=== PATIENT | female | born 1995 | race Caucasian/White ===

== ENCOUNTER → 2016-12-08 | Outpatient (REF) | payer MEDICARE, MEDICAID ==
[~2016-12-08] MED LIST: /VITACHEW PO; BACTDSTA PO; PROT1TAB2 PO
== END ==
LOC: M SFHCADAM 13:45
PROVIDERS: ATTEND Physician Assistant
DX: R94.6 Abnormal results of thyroid function studies (principal)

== ENCOUNTER → 2016-12-25 | Outpatient (REF) | payer MEDICARE, MEDICAID ==
[2016-12-25 19:48] LABS: FREE T4 1.24 NG/DL (0.78-1.33)
== END ==
LOC: M SFHCADAM 13:30
PROVIDERS: ATTEND Physician Assistant
DX: R94.6 Abnormal results of thyroid function studies (principal)

== ENCOUNTER 2017-01-08 21:01 | Emergency (ER) | payer MEDICARE, MEDICAID ==
[2017-01-08] MEDS ORDERED: KETOROLAC 30 MG/ML VIAL (J1885) As Ordered ONE (21:52)
[2017-01-08 22:13] LABS: BASO # 0.1 K/mm3 (0.0-0.2); BASO % 0.4 % (0.0-1.0); EOS # 0.2 K/mm3 (0.0-0.50); EOS % 1.8 % (0.0-3.0); LARGE UNSTAINED CELL # 0.2 K/mm3 (0.0-0.4); LARGE UNSTAINED CELL % 1.5 % (0.0-4.0); LYMPH # 2.4 K/mm3 (1.5-6.5); LYMPH % 19.2 % (24.0-44.0); MEAN CORPUSCULAR HEMOGLOBIN 27.2 pg (27.0-33.0); MEAN CORPUSCULAR HGB CONC 31.8 g/dl (32.0-36.5); MEAN CORPUSCULAR VOLUME 85.6 fl (80.0-96.0); MONO # 0.5 K/mm3 (0.0-0.8); MONO % 4.2 % (0.0-5.0); NEUTROPHILS % 72.9 % (36.0-66.0); PLATELET COUNT, AUTOMATED 326 k/mm3 (150-450); WHITE BLOOD COUNT 12.3 K/mm3 (4.0-10.0)
[2017-01-08 22:34] LABS: ALBUMIN 3.7 GM/DL (3.2-5.2); ALBUMIN/GLOBULIN RATIO 0.93 (1.00-1.93); ALKALINE PHOSPHATASE 105 U/L (45-117); ALT/SGPT 33 U/L (12-78); AMYLASE 56 U/L (25-115); ANION GAP 6 MEQ/L (8-16); AST/SGOT 21 U/L (15-37); BILIRUBIN,DIRECT 0.1 MG/DL (0.0-0.2); BILIRUBIN,TOTAL 0.5 MG/DL (0.2-1.0); BLOOD UREA NITROGEN 10 MG/DL (7-18); CARBON DIOXIDE LEVEL 30 MEQ/L (21-32); CHLORIDE LEVEL 105 MEQ/L (98-107); CREATININE FOR GFR 0.87 MG/DL (0.55-1.02); GLUCOSE, FASTING 89 MG/DL (70-105); POTASSIUM SERUM 3.8 MEQ/L (3.5-5.1); SODIUM LEVEL 141 MEQ/L (136-145); TOTAL PROTEIN 7.7 GM/DL (6.4-8.2)
[2017-01-08] MEDS ORDERED: ISOVUE-370 76% 100ML VIAL (Q9967) As Ordered ONE (22:46)
[2017-01-08] MEDS ORDERED: MORPHINE 2 MG/ML 1ML SYRINGE As Ordered ONE (23:11)
--- NOTE | 2017-01-08 23:20 | REPUSA ---
CT of the abdomen and pelvis with contrast Clinical statement: Pain. Technique: Multiple axial CT images were obtained from the base of the lungs through the floor of the pelvis utilizing 5 mm axial slices after administration of nonionic intravenous contrast. Coronal an d sagittal reconstructions were also obtained. Comparison: 10/17/2015. Findings: Chest: The visualized lung bases are clear. Abdomen: The liver, spleen, pancreas, kidneys, gallbladder, and adrenal glands are unremarkable. The aorta is within normal limits. There is no evidence of abdominal lymphadenopathy or ascites. Pelvis: Moderate amount of stool fills the colon.The bowel is otherwise unremarkable, with no obstruc tive or inflammatory changes. The appendix is normal. The urinary bladder is within normal limits. Th ere is a small simple right ovarian cyst measuring 1.7 x 2.1 cm. The other pelvic structures appear g rossly intact. There is no evidence of pelvic lymphadenopathy or ascites. Bones: There are no suspicious osseous abnormalities seen. Impression: 1. No obstructive or inflammatory bowel changes. Mild constipation. 2. Small simple right ovarian cyst.
--- NOTE | 2017-01-09 00:04 | EDDOCDS ---
Nurse's Notes [facility] Name: Gema Aviles Age: 21 yrs Sex: Female : 1995 Arrival Date: 01/08/2017 Time: 21:01 Bed I4 / M4 Private MD: Justa Dill M Diagnosis: Constipation;Other ovarian cysts-RIGHT Presentation: 01/08 21:14 Presenting complaint: Patient states: right lower abd pain x3 days. Nauseated. Denies ttb symptoms. Adult Sepsis Screening: The patient does not have new or worsening altered mentation. Patient's respiratory rate is less than 22. Systolic blood pressure is greater than 100. Patient has a qSOFA score of 0- Negative Sepsis Screen. Suicide/Homicide risk assessment- the patient denies having any suicidal and/or homicidal ideations and does not present with any other emotional, behavioral or mental health complaints. Status: Patient is not a coordinator of rehabilitation services or dependent. Transition of care: patient was not received from another setting of care. 21:14 Acuity: ROD Level 3 ttb 21:14 Method Of Arrival: Walkin/Carried/Asstd ttb Triage Assessment: 21:15 General: Appears in no apparent distress, well nourished, Behavior is cooperative, ttb pleasant. Pain: Location: right lower quadrant pain Pain currently is 10 out of 10 on a pain scale. HIV screening NA for this visit Offered previously. Neurological: Level of Consciousness is awake, alert. Cardiovascular: Chest pain is denied. Respiratory: No deficits noted. Airway is patent Denies cough, shortness of breath. GI: Reports lower abdominal pain, Denies constipation, diarrhea, vomiting. : Denies burning with urination, urinary frequency, urgency, vaginal bleeding. Derm: Skin is normal. 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 none - PMHx: Pancreatitis; Hypothyroidism; Ovarian cyst; - PSHx: Tonsillectomy; - Social history: Smoking status: Patient states was never smoker of tobacco. Patient/guardian denies using alcohol, street drugs, No barriers to communication noted, The patient speaks fluent Indonesian. - Family history: Not pertinent. - : The pt / caregiver states he / she is not on anticoagulants. Home medication list is obtained from the patient, the caregiver. - Exposure Risk Screening:: None identified. Screenin:08 Screening information is obtained from family members. Fall risk: No risks identified. kas2 Assistance ADL's: requires no assistance with activities of daily living. Abuse/DV Screen: The patient / caregiver reports he/she is: not in a situation that causes fear, pain or injury. Nutritional screening: No deficits noted. Advance Directives: Currently, there is no health care proxy. There is no active DNR order. There is no living will. There is no Power of Administration Specialist. home support is adequate. Assessment: 22:06 General: Appears in no apparent distress, uncomfortable, well nourished, well groomed, kas2 Behavior is appropriate for age, cooperative. Pain: Location: back and groin Pain currently is 5 out of 10 on a pain scale. Neurological: Level of Consciousness is awake, alert, Oriented to person, place, time. Cardiovascular: Rhythm is regular. Respiratory: Airway is patent Respiratory effort is even, unlabored, Respiratory pattern is regular, symmetrical. GI: Abdomen is obese, Bowel sounds present X 4 quads. Abd is tender to palpation X 4 quads. : Reports burning with urination. Derm: Skin is intact, Skin is moist, Skin is pink, warm & dry. Skin temperature is warm. 22:32 General: Pt reports itching from tape holding IV tubing to arm. Replaced with paper ld5 tape. 23:03 General: Pt returned from CT. Tolerated well. Reports no change in pain. Provider ld5 aware. Will continue to monitor. 23:21 General: Pt medicated for reports 10/10 pain. Call sterling within reach. Will continue to ld5 monitor. Vital Signs: 21:03 BP 144 / 90; Pulse 109; Resp 16; Temp 99.2(O); Pulse Ox 100% on R/A; Weight 111.67 kg sew (M); Height 5 ft. 4 in. (162.56 cm); Pain 10/10; 23:59 BP 127 / 63; Pulse 72; Resp 18; Temp 98.3; Pulse Ox 96% ; ajs 21:03 Body Mass Index 42.26 (111.67 kg, 162.56 cm) sew Vitals: 21:03 Log In Time: January 08, 2017 at 21:01. [facility] ED Course: 21:03 Patient visited by Tita Pierre. sew 21:03 Justa Dill is Private Physician. sew 21:03 Patient moved to Waiting sew 21:04 Patient visited by Tita Pierre. sew 21:04 Patient moved to Pre RCE sew 21:15 Triage Initiated ttb 21:33 Patient moved to Triage 3 rs6 21:36 [facility] ck7 21:36 Jaden Travis DO is Attending Physician. ck7 21:36 Patient visited by Jose Obrien RPA-C. ck7 21:51 Patient moved to I4 / M4 nn1 22:01 Urinalysis Sent. ld5 22:01 Urine Culture Sent. ld5 22:05 Amylase Sent. kas2 22:05 Basic Metabolic Profile Sent. kas2 22:05 CBC with Diff Sent. kas2 22:05 Lipase Sent. kas2 22:05 Liver Profile Sent. kas2 22:06 Inserted saline lock: 20 gauge in right antecubital area and blood collected. [facility] patient tolerated the procedure well. No procedures done that require assistance. 22:08 Patient visited by Lacey Bass RN. kas2 22:28 [facility] Payment Agreement was scanned into [employer] and attached to record. gjb 22:33 Patient visited by Maine Kirby RN. ld5 23:04 Patient visited by Maine Kirby,GISEL. ld5 23:22 Patient visited by Maine Kirby,GISEL. ld5 23:22 CT ABD & PELVIS: IV Contrast Only Returned. EDMS 23:52 Patient visited by Jose Obrien RPA-C. ck7 23:55 Justa Dill is Referral Physician. ck7 02 00:00 Patient visited by Deb Edwards. ajs 00:01 Discontinued IV bleeding controlled, pressure dressing applied, No redness/swelling at [facility] site. 00:02 Patient visited by Lacey Bass RN. [facility] 00:02 The patient / caregiver is instructed regarding the plan of care and ED course. [facility] Administered Medications: 01/08 22:05 Drug: Ondansetron 4 mg [ondansetron HCl 2 mg/mL intravenous solution (2 mL)] Route: [facility] IVP; Site: right antecubital; 23:02 Follow up: Response: No significant change. ld5 22:05 Drug: NS 0.9% 1000 ml [sodium chloride 0.9 % intravenous solution] Route: IV; Rate: kas2 bolus; Site: right antecubital; 01/09 00:02 Follow up: IV Status: Completed infusion; IV Intake: 1000ml kas2 01/08 22:06 Drug: ketorolac 30 mg [ketorolac 30 mg/mL (1 mL) injection solution (1 mL)] Route: IVP; kas2 Site: right antecubital; 23:03 Follow up: Response: No significant change. ld5 23:21 Not Given (other dosage ordered): morphine 4 mg IVP once ld5 23:21 Drug: morphine 2 mg [morphine 2 mg/mL intravenous cartridge (1 mL)] Route: IVP; Site: ld5 right antecubital; Point of Care Testing: Urine : 22:01 hCG Reading: Negative; Control Reading: Positive; ld5 Ranges: Intake: 01/09 00:02 IV: 1000.00ml; Total: 1000.00ml. kas2 Order Results: Lab Order: Amylase; SPEC'M 01/08/17 22:03 Test: AMYLASE; Value: 56; Range: 25-115; Units: U/L; Status: F Lab Order: Basic Metabolic Profile; SPEC'M 01/08/17 22:03 Test: GLUCOSE, FASTING; Value: 89; Range: 70-105; Units: MG/DL; Status: F Test: BLOOD UREA NITROGEN; Value: 10; Range: 7-18; Units: MG/DL; Status: F Test: CREATININE FOR GFR; Value: 0.87; Range: 0.55-1.02; Units: MG/DL; Status: F Test: SODIUM LEVEL; Value: 141; Range: 136-145; Units: MEQ/L; Status: F Test: POTASSIUM SERUM; Value: 3.8; Range: 3.5-5.1; Units: MEQ/L; Status: F Test: CHLORIDE LEVEL; Value: 105; Range: 98-107; Units: MEQ/L; Status: F Test: CARBON DIOXIDE LEVEL; Value: 30; Range: 21-32; Units: MEQ/L; Status: F Test: ANION GAP; Value: 6; Range: 8-16; Abnormal: Below low normal; Units: MEQ/L; Status: F Test: CALCIUM LEVEL; Value: 9.0; Range: 8.5-10.1; Units: MG/DL; Status: F Lab Order: CBC with Diff; SPEC'M 01/08/17 22:03 Test: WHITE BLOOD COUNT; Value: 12.3; Range: 4.0-10.0; Abnormal: Above high normal; Units: K/mm3; Status: F Test: RED BLOOD COUNT; Value: 4.34; Range: 4.00-5.40; Units: M/mm3; Status: F Test: HEMOGLOBIN; Value: 11.8; Range: 12.0-16.0; Abnormal: Below low normal; Units: g/dl; Status: F Test: HEMATOCRIT; Value: 37.1; Range: 36.0-47.0; Units: %; Status: F Test: MEAN CORPUSCULAR VOLUME; Value: 85.6; Range: 80.0-96.0; Units: fl; Status: F Test: MEAN CORPUSCULAR HEMOGLOBIN; Value: 27.2; Range: 27.0-33.0; Units: pg; Status: F Test: MEAN CORPUSCULAR HGB CONC; Value: 31.8; Range: 32.0-36.5; Abnormal: Below low normal; Units: g/dl; Status: F Test: RED CELL DISTRIBUTION WIDTH; Value: 13.0; Range: 11.5-14.5; Units: %; Status: F Test: PLATELET COUNT, AUTOMATED; Value: 326; Range: 150-450; Units: k/mm3; Status: F Test: NEUTROPHILS %; Value: 72.9; Range: 36.0-66.0; Abnormal: Above high normal; Units: %; Status: F Test: LYMPH %; Value: 19.2; Range: 24.0-44.0; Abnormal: Below low normal; Units: %; Status: F Test: MONO %; Value: 4.2; Range: 0.0-5.0; Units: %; Status: F Test: EOS %; Value: 1.8; Range: 0.0-3.0; Units: %; Status: F Test: BASO %; Value: 0.4; Range: 0.0-1.0; Units: %; Status: F Test: LARGE UNSTAINED CELL %; Value: 1.5; Range: 0.0-4.0; Units: %; Status: F Test: NEUTROPHILS #; Value: 9.0; Range: 1.8-7.7; Abnormal: Above high normal; Units: K/mm3; Status: F Test: LYMPH #; Value: 2.4; Range: 1.5-6.5; Units: K/mm3; Status: F Test: MONO #; Value: 0.5; Range: 0.0-0.8; Units: K/mm3; Status: F Test: EOS #; Value: 0.2; Range: 0.0-0.50; Units: K/mm3; Status: F Test: BASO #; Value: 0.1; Range: 0.0-0.2; Units: K/mm3; Status: F Test: LARGE UNSTAINED CELL #; Value: 0.2; Range: 0.0-0.4; Units: K/mm3; Status: F Lab Order: Lipase; SPEC'M 01/08/17 22:03 Test: LIPASE; Value: 261; Range: 73-393; Units: U/L; Status: F Lab Order: Liver Profile; SPEC'M 01/08/17 22:03 Test: AST/SGOT; Value: 21; Range: 15-37; Units: U/L; Status: F Test: ALT/SGPT; Value: 33; Range: 12-78; Units: U/L; Status: F Test: ALKALINE PHOSPHATASE; Value: 105; Range: 45-117; Units: U/L; Status: F Test: BILIRUBIN,TOTAL; Value: 0.5; Range: 0.2-1.0; Units: MG/DL; Status: F Test: BILIRUBIN,DIRECT; Value: 0.1; Range: 0.0-0.2; Units: MG/DL; Status: F Test: TOTAL PROTEIN; Value: 7.7; Range: 6.4-8.2; Units: GM/DL; Status: F Test: ALBUMIN; Value: 3.7; Range: 3.2-5.2; Units: GM/DL; Status: F Test: ALBUMIN/GLOBULIN RATIO; Value: 0.93; Range: 1.00-1.93; Abnormal: Below low normal; Status: F Lab Order: Urinalysis; SPEC'M 01/08/17 21:56 Test: APPEARANCE, URINE; Value: HAZY; Range: CLEAR; Status: F Test: COLOR, URINE; Value: YELLOW; Range: YELLOW; Status: F Test: PH,URINE; Value: 6.0; Range: 5.0-9.0; Units: UNITS; Status: F Test: SPECIFIC GRAVITY URINE AUTO; Value: 1.020; Range: 1.002-1.035; Status: F Test: PROTEIN, URINE AUTO; Value: 1+; Range: NEGATIVE; Abnormal: Above high normal; Units: mg/dL; Status: F Test: GLUCOSE, URINE (UA) AUTO; Value: NEGATIVE; Range: NEGATIVE; Units: mg/dL; Status: F Test: KETONE, URINE AUTO; Value: NEGATIVE; Range: NEGATIVE; Units: mg/dL; Status: F Test: UROBILINOGEN, URINE AUTO; Value: 0.2; Range: 0.0-2.0; Units: mg/dL; Status: F Test: BILIRUBIN, URINE AUTO; Value: NEGATIVE; Range: NEGATIVE; Status: F Test: NITRITE, URINE AUTO; Value: NEGATIVE; Range: NEGATIVE; Status: F Test: LEUKOCYTE ESTERASE, URINE AUTO; Value: TRACE; Range: NEGATIVE; Abnormal: Above high normal; Status: F Test: BLOOD, URINE BLOOD; Value: NEGATIVE; Range: NEGATIVE; Status: F Test: WBC, URINE AUTO; Value: 2; Range: 0-3; Units: /HPF; Status: F Test: RBC, URINE AUTO; Value: 1; Range: 0-3; Units: /HPF; Status: F Test: BACTERIA, URINE AUTO; Value: 1+; Range: NEGATIVE; Abnormal: Above high normal; Status: F Test: SQUAMOUS EPITHELIAL CELL UR AU; Value: 8; Range: 0-6; Units: /HPF; Status: F Test: MUCUS, URINE; Value: SMALL; Range: NEGATIVE; Status: F Test: HYALINE CAST, URINE AUTO; Value: 0; Range: 0-1; Units: /LPF; Status: F Radiology Order: CT ABD & PELVIS: IV Contrast Only Test: CT ABD & PELVIS: IV Contrast Only REASON FOR EXAMINATION: Appendicitis; ; CT of the abdomen and pelvis with contrast; Clinical statement: Pain.; Technique: Multiple axial CT images were obtained from the base of the lungs through the floor of the; pelvis utilizing 5 mm axial slices after administration of nonionic intravenous contrast. Coronal an; d sagittal reconstructions were also obtained.; Comparison: 10/17/2015.; Findings:; Chest: The visualized lung bases are clear.; Abdomen: The liver, spleen, pancreas, kidneys, gallbladder, and adrenal glands are unremarkable. The; aorta is within normal limits. There is no evidence of abdominal lymphadenopathy or ascites.; Pelvis: Moderate amount of stool fills the colon.The bowel is otherwise unremarkable, with no obstruc; tive or inflammatory changes. The appendix is normal. The urinary bladder is within normal limits. Th; ere is a small simple right ovarian cyst measuring 1.7 x 2.1 cm. The other pelvic structures appear g; rossly intact. There is no evidence of pelvic lymphadenopathy or ascites.; Bones: There are no suspicious osseous abnormalities seen.; Impression:; 1. No obstructive or inflammatory bowel changes. Mild constipation.; 2. Small simple right ovarian cyst.; ; ; Outcome: 01/08 23:55 Discharge ordered by Provider. ck7 01/09 00:01 Discharge Assessment: patient administered narcotics - yes. Pt provided with safe [facility] discharge. The following High Risk Discharge criteria are identified: None. Discharged to home ambulatory, with family. Condition: good Condition: stable Condition: improved. CT Study completed. Property :Personal belongings accompany Pt. 00:02 Patient left the ED. kas2 Signatures: Dispatcher [employer] Maine Gee,RN RN [email or web address] Deb Edwards Christopher, RPA-C RPA-Cck7 Tita Pierre Teresa RN RN Tessy Marks, SIMONA STOCK HANDLER rs6 Erum Dale,RN RN Justa Wong KimRN RN kas2 MTDD
--- NOTE | 2017-01-09 00:04 | EDDOCDS ---
Physician Documentation [facility] Name: Gema Aviles Age: 21 yrs Sex: Female : 1995 Arrival Date: 01/08/2017 Time: 21:01 Bed I4 / M4 Private MD: Justa Dill M Disposition: 01/08/17 23:55 Discharged to Home/Self Care. Impression: Constipation, Other ovarian cysts - RIGHT. - Condition is Stable. - Discharge Instructions: Constipation, Adult, Ovarian Cyst. - Prescriptions for Ibuprofen 600 mg Oral Tablet - take 1 tablet by ORAL route every 6 hours As needed take with food; 30 tablet. Miralax 17 gram/dose - take 17 gram by ORAL route once daily As needed dilute in 8 ounces of water or juice; 1 bottle. - Medication Reconciliation, Local Pharmacy Hours form. - Follow up: Justa Dill; When: 2 - 3 days; Reason: Recheck today's complaints, Continuance of care. - Problem is new. - Symptoms have improved. Historical: - Allergies: Cipro PO; - Home Meds: 1. none - PMHx: Pancreatitis; Hypothyroidism; Ovarian cyst; - PSHx: Tonsillectomy; - Social history: Smoking status: Patient states was never smoker of tobacco. Patient/guardian denies using alcohol, street drugs, No barriers to communication noted, The patient speaks fluent Greek. - Family history: Not pertinent. - : The pt / caregiver states he / she is not on anticoagulants. Home medication list is obtained from the patient, the caregiver. - Exposure Risk Screening:: None identified. 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 4 in. (162.56 cm); Pain 10/10; 23:59 BP 127 / 63; Pulse 72; Resp 18; Temp 98.3; Pulse Ox 96% ; ajs 21:03 Body Mass Index 42.26 (111.67 kg, 162.56 cm) sew MDM: 21:48 Undress patient appropriately for examination ordered. ck7 21:48 UCG by Nursing ordered. ck7 21:48 IV Saline Lock ordered. ck7 21:48 ketorolac 30 mg IVP once ordered. ck7 21:48 Ondansetron 4 mg IVP once ordered. ck7 21:48 NS 0.9% 1000 ml IV at bolus once ordered. ck7 21:49 Amylase Ordered. EDMS 21:49 Basic Metabolic Profile Ordered. EDMS 21:49 CBC with Diff Ordered. EDMS 21:49 Lipase Ordered. EDMS 21:49 Liver Profile Ordered. EDMS 21:49 Urinalysis Ordered. EDMS 21:49 Urine Culture Ordered. EDMS 21:50 NOTHING BY MOUTH+DIET ordered. EDMS 21:50 CT ABD & PELVIS: IV Contrast Only Ordered. EDMS 22:24 Financial registration complete. [facility] 22:28 [facility] Payment Agreement was scanned into [employer] and attached to record. gjb 22:44 Basic Metabolic Profile Reviewed. ck7 22:44 CBC with Diff Reviewed. ck7 22:44 Liver Profile Reviewed. ck7 22:44 Urinalysis Reviewed. ck7 22:44 Amylase Reviewed. ck7 22:44 Lipase Reviewed. ck7 23:04 morphine 4 mg IVP once ordered. ck7 23:21 morphine 2 mg IVP once ordered. ld5 23:24 CT ABD & PELVIS: IV Contrast Only Reviewed. ck7 Point of Care Testing: Urine : 22:01 hCG Reading: Negative; Control Reading: Positive; ld5 Ranges: Administered Medications: 22:05 Drug: Ondansetron 4 mg [ondansetron HCl 2 mg/mL intravenous solution (2 mL)] Route: kas2 IVP; Site: right antecubital; 23:02 Follow up: Response: No significant change. ld5 22:05 Drug: NS 0.9% 1000 ml [sodium chloride 0.9 % intravenous solution] Route: IV; Rate: kas2 bolus; Site: right antecubital; 01/09 00:02 Follow up: IV Status: Completed infusion; IV Intake: 1000ml kas2 01/08 22:06 Drug: ketorolac 30 mg [ketorolac 30 mg/mL (1 mL) injection solution (1 mL)] Route: IVP; kas2 Site: right antecubital; 23:03 Follow up: Response: No significant change. ld5 23:21 Not Given (other dosage ordered): morphine 4 mg IVP once ld5 23:21 Drug: morphine 2 mg [morphine 2 mg/mL intravenous cartridge (1 mL)] Route: IVP; Site: ld5 right antecubital; Signatures: Dispatcher [employer] Maine GeeRN RN ld5 Jose Obrien, RPA-C RPA-Cck7 Shayy López RN RN ttb Beck, Gabriela gjb Smith, KimRN RN kas2 The chart was reviewed and I authenticate all verbal orders and agree with the evaluation and treatment provided.Attachments: 22:28 [facility] Payment Agreement gjb MTDD
--- NOTE | 2017-01-11 01:03 | EDDOCDS ---
Physician Documentation [facility] Name: Gema Aviles Age: 21 yrs Sex: Female : 1995 Arrival Date: 01/08/2017 Time: 21:01 Bed I4 / M4 Private MD: Justa Dill M Disposition: 01/08/17 23:55 Discharged to Home/Self Care. Impression: Constipation, Other ovarian cysts - RIGHT. - Condition is Stable. - Discharge Instructions: Constipation, Adult, Ovarian Cyst. - Prescriptions for Ibuprofen 600 mg Oral Tablet - take 1 tablet by ORAL route every 6 hours As needed take with food; 30 tablet. Miralax 17 gram/dose - take 17 gram by ORAL route once daily As needed dilute in 8 ounces of water or juice; 1 bottle. - Medication Reconciliation, Local Pharmacy Hours form. - Follow up: Justa Dill; When: 2 - 3 days; Reason: Recheck today's complaints, Continuance of care. - Problem is new. - Symptoms have improved. Historical: - Allergies: Cipro PO; - Home Meds: 1. none - PMHx: Pancreatitis; Hypothyroidism; Ovarian cyst; - PSHx: Tonsillectomy; - Social history: Smoking status: Patient states was never smoker of tobacco. Patient/guardian denies using alcohol, street drugs, No barriers to communication noted, The patient speaks fluent Armenian. - Family history: Not pertinent. - : The pt / caregiver states he / she is not on anticoagulants. Home medication list is obtained from the patient, the caregiver. - Exposure Risk Screening:: None identified. 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 4 in. (162.56 cm); Pain 10/10; 23:59 BP 127 / 63; Pulse 72; Resp 18; Temp 98.3; Pulse Ox 96% ; ajs 21:03 Body Mass Index 42.26 (111.67 kg, 162.56 cm) sew MDM: 21:48 Undress patient appropriately for examination ordered. ck7 21:48 UCG by Nursing ordered. ck7 21:48 IV Saline Lock ordered. ck7 21:48 ketorolac 30 mg IVP once ordered. ck7 21:48 Ondansetron 4 mg IVP once ordered. ck7 21:48 NS 0.9% 1000 ml IV at bolus once ordered. ck7 21:49 Amylase Ordered. EDMS 21:49 Basic Metabolic Profile Ordered. EDMS 21:49 CBC with Diff Ordered. EDMS 21:49 Lipase Ordered. EDMS 21:49 Liver Profile Ordered. EDMS 21:49 Urinalysis Ordered. EDMS 21:49 Urine Culture Ordered. EDMS 21:50 NOTHING BY MOUTH+DIET ordered. EDMS 21:50 CT ABD & PELVIS: IV Contrast Only Ordered. EDMS 22:24 Financial registration complete. gj 22:28 [facility] Payment Agreement was scanned into [employer] and attached to record. gjb 22:44 Basic Metabolic Profile Reviewed. ck7 22:44 CBC with Diff Reviewed. ck7 22:44 Liver Profile Reviewed. ck7 22:44 Urinalysis Reviewed. ck7 22:44 Amylase Reviewed. ck7 22:44 Lipase Reviewed. ck7 23:04 morphine 4 mg IVP once ordered. ck7 23:21 morphine 2 mg IVP once ordered. ld5 23:24 CT ABD & PELVIS: IV Contrast Only Reviewed. ck7 01/09 10:58 T-Sheet-- Draft Copy was scanned into [employer] and attached to record. Point of Care Testing: Urine : 01/08 22:01 hCG Reading: Negative; Control Reading: Positive; ld5 Ranges: Administered Medications: 22:05 Drug: Ondansetron 4 mg [ondansetron HCl 2 mg/mL intravenous solution (2 mL)] Route: kas2 IVP; Site: right antecubital; 23:02 Follow up: Response: No significant change. ld5 22:05 Drug: NS 0.9% 1000 ml [sodium chloride 0.9 % intravenous solution] Route: IV; Rate: kas2 bolus; Site: right antecubital; 01/09 00:02 Follow up: IV Status: Completed infusion; IV Intake: 1000ml kas2 01/08 22:06 Drug: ketorolac 30 mg [ketorolac 30 mg/mL (1 mL) injection solution (1 mL)] Route: IVP; kas2 Site: right antecubital; 23:03 Follow up: Response: No significant change. ld5 23:21 Not Given (other dosage ordered): morphine 4 mg IVP once ld5 23:21 Drug: morphine 2 mg [morphine 2 mg/mL intravenous cartridge (1 mL)] Route: IVP; Site: ld5 right antecubital; Signatures: Dispatcher [employer] EDMS Nyasia Loyola, Reg Reg gb Maine KirbyRN RN ld5 Jose Obrien, RPA-C RPA-Cck7 Shayy López RN RN hunterb Justa Mckoy KimRN RN kas2 The chart was reviewed and I authenticate all verbal orders and agree with the evaluation and treatment provided.Attachments: 22:28 [facility] Payment Agreement gjb 01/09 10:58 T-Sheet-- Draft Copy gb Chart Complete MTDD
--- NOTE | 2017-01-11 01:04 | EDDOCDS ---
Physician Documentation [facility] Name: Gema Aviles Age: 21 yrs Sex: Female : 1995 Arrival Date: 01/08/2017 Time: 21:01 Bed I4 / M4 Private MD: Justa Dill M Disposition: 01/08/17 23:55 Discharged to Home/Self Care. Impression: Constipation, Other ovarian cysts - RIGHT. - Condition is Stable. - Discharge Instructions: Constipation, Adult, Ovarian Cyst. - Prescriptions for Ibuprofen 600 mg Oral Tablet - take 1 tablet by ORAL route every 6 hours As needed take with food; 30 tablet. Miralax 17 gram/dose - take 17 gram by ORAL route once daily As needed dilute in 8 ounces of water or juice; 1 bottle. - Medication Reconciliation, Local Pharmacy Hours form. - Follow up: Justa Dill; When: 2 - 3 days; Reason: Recheck today's complaints, Continuance of care. - Problem is new. - Symptoms have improved. Historical: - Allergies: Cipro PO; - Home Meds: 1. none - PMHx: Pancreatitis; Hypothyroidism; Ovarian cyst; - PSHx: Tonsillectomy; - Social history: Smoking status: Patient states was never smoker of tobacco. Patient/guardian denies using alcohol, street drugs, No barriers to communication noted, The patient speaks fluent Georgian. - Family history: Not pertinent. - : The pt / caregiver states he / she is not on anticoagulants. Home medication list is obtained from the patient, the caregiver. - Exposure Risk Screening:: None identified. 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 4 in. (162.56 cm); Pain 10/10; 23:59 BP 127 / 63; Pulse 72; Resp 18; Temp 98.3; Pulse Ox 96% ; ajs 21:03 Body Mass Index 42.26 (111.67 kg, 162.56 cm) sew MDM: 21:48 Undress patient appropriately for examination ordered. ck7 21:48 UCG by Nursing ordered. ck7 21:48 IV Saline Lock ordered. ck7 21:48 ketorolac 30 mg IVP once ordered. ck7 21:48 Ondansetron 4 mg IVP once ordered. ck7 21:48 NS 0.9% 1000 ml IV at bolus once ordered. ck7 21:49 Amylase Ordered. EDMS 21:49 Basic Metabolic Profile Ordered. EDMS 21:49 CBC with Diff Ordered. EDMS 21:49 Lipase Ordered. EDMS 21:49 Liver Profile Ordered. EDMS 21:49 Urinalysis Ordered. EDMS 21:49 Urine Culture Ordered. EDMS 21:50 NOTHING BY MOUTH+DIET ordered. EDMS 21:50 CT ABD & PELVIS: IV Contrast Only Ordered. EDMS 22:24 Financial registration complete. gj 22:28 [facility] Payment Agreement was scanned into redIT and attached to record. gjb 22:44 Basic Metabolic Profile Reviewed. ck7 22:44 CBC with Diff Reviewed. ck7 22:44 Liver Profile Reviewed. ck7 22:44 Urinalysis Reviewed. ck7 22:44 Amylase Reviewed. ck7 22:44 Lipase Reviewed. ck7 23:04 morphine 4 mg IVP once ordered. ck7 23:21 morphine 2 mg IVP once ordered. ld5 23:24 CT ABD & PELVIS: IV Contrast Only Reviewed. ck7 01/09 10:58 T-Sheet-- Draft Copy was scanned into redIT and attached to record. Point of Care Testing: Urine : 01/08 22:01 hCG Reading: Negative; Control Reading: Positive; ld5 Ranges: Administered Medications: 22:05 Drug: Ondansetron 4 mg [ondansetron HCl 2 mg/mL intravenous solution (2 mL)] Route: kas2 IVP; Site: right antecubital; 23:02 Follow up: Response: No significant change. ld5 22:05 Drug: NS 0.9% 1000 ml [sodium chloride 0.9 % intravenous solution] Route: IV; Rate: kas2 bolus; Site: right antecubital; 01/09 00:02 Follow up: IV Status: Completed infusion; IV Intake: 1000ml kas2 01/08 22:06 Drug: ketorolac 30 mg [ketorolac 30 mg/mL (1 mL) injection solution (1 mL)] Route: IVP; kas2 Site: right antecubital; 23:03 Follow up: Response: No significant change. ld5 23:21 Not Given (other dosage ordered): morphine 4 mg IVP once ld5 23:21 Drug: morphine 2 mg [morphine 2 mg/mL intravenous cartridge (1 mL)] Route: IVP; Site: ld5 right antecubital; Signatures: Dispatcher [employer] EDMS Nyasia Loyola, Reg Reg gb Maine KirbyRN RN ld5 Jose Obrien, RPA-C RPA-Cck7 Shayy López RN RN hunterb Justa Mckoy KimRN RN kas2 The chart was reviewed and I authenticate all verbal orders and agree with the evaluation and treatment provided.Attachments: 22:28 [facility] Payment Agreement gjb 01/09 10:58 T-Sheet-- Draft Copy gb Chart Complete MTDD
--- NOTE | 2017-01-11 01:05 | EDDOCDS ---
Nurse's Notes [facility] Name: Gema Aviles Age: 21 yrs Sex: Female : 1995 Arrival Date: 01/08/2017 Time: 21:01 Bed I4 / M4 Private MD: Justa Dill M Diagnosis: Constipation;Other ovarian cysts-RIGHT Presentation: 01/08 21:14 Presenting complaint: Patient states: right lower abd pain x3 days. Nauseated. Denies ttb symptoms. Adult Sepsis Screening: The patient does not have new or worsening altered mentation. Patient's respiratory rate is less than 22. Systolic blood pressure is greater than 100. Patient has a qSOFA score of 0- Negative Sepsis Screen. Suicide/Homicide risk assessment- the patient denies having any suicidal and/or homicidal ideations and does not present with any other emotional, behavioral or mental health complaints. Status: Patient is not a kosher dietary service manager or dependent. Transition of care: patient was not received from another setting of care. 21:14 Acuity: ROD Level 3 ttb 21:14 Method Of Arrival: Walkin/Carried/Asstd ttb Triage Assessment: 21:15 General: Appears in no apparent distress, well nourished, Behavior is cooperative, ttb pleasant. Pain: Location: right lower quadrant pain Pain currently is 10 out of 10 on a pain scale. HIV screening NA for this visit Offered previously. Neurological: Level of Consciousness is awake, alert. Cardiovascular: Chest pain is denied. Respiratory: No deficits noted. Airway is patent Denies cough, shortness of breath. GI: Reports lower abdominal pain, Denies constipation, diarrhea, vomiting. : Denies burning with urination, urinary frequency, urgency, vaginal bleeding. Derm: Skin is normal. 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 none - PMHx: Pancreatitis; Hypothyroidism; Ovarian cyst; - PSHx: Tonsillectomy; - Social history: Smoking status: Patient states was never smoker of tobacco. Patient/guardian denies using alcohol, street drugs, No barriers to communication noted, The patient speaks fluent Upper Sorbian. - Family history: Not pertinent. - : The pt / caregiver states he / she is not on anticoagulants. Home medication list is obtained from the patient, the caregiver. - Exposure Risk Screening:: None identified. Screenin:08 Screening information is obtained from family members. Fall risk: No risks identified. kas2 Assistance ADL's: requires no assistance with activities of daily living. Abuse/DV Screen: The patient / caregiver reports he/she is: not in a situation that causes fear, pain or injury. Nutritional screening: No deficits noted. Advance Directives: Currently, there is no health care proxy. There is no active DNR order. There is no living will. There is no Power of Director Employee Safety And Health. home support is adequate. Assessment: 22:06 General: Appears in no apparent distress, uncomfortable, well nourished, well groomed, kas2 Behavior is appropriate for age, cooperative. Pain: Location: back and groin Pain currently is 5 out of 10 on a pain scale. Neurological: Level of Consciousness is awake, alert, Oriented to person, place, time. Cardiovascular: Rhythm is regular. Respiratory: Airway is patent Respiratory effort is even, unlabored, Respiratory pattern is regular, symmetrical. GI: Abdomen is obese, Bowel sounds present X 4 quads. Abd is tender to palpation X 4 quads. : Reports burning with urination. Derm: Skin is intact, Skin is moist, Skin is pink, warm & dry. Skin temperature is warm. 22:32 General: Pt reports itching from tape holding IV tubing to arm. Replaced with paper ld5 tape. 23:03 General: Pt returned from CT. Tolerated well. Reports no change in pain. Provider ld5 aware. Will continue to monitor. 23:21 General: Pt medicated for reports 10/10 pain. Call sterling within reach. Will continue to ld5 monitor. Vital Signs: 21:03 BP 144 / 90; Pulse 109; Resp 16; Temp 99.2(O); Pulse Ox 100% on R/A; Weight 111.67 kg sew (M); Height 5 ft. 4 in. (162.56 cm); Pain 10/10; 23:59 BP 127 / 63; Pulse 72; Resp 18; Temp 98.3; Pulse Ox 96% ; ajs 21:03 Body Mass Index 42.26 (111.67 kg, 162.56 cm) sew Vitals: 21:03 Log In Time: January 08, 2017 at 21:01. [facility] [place]: 21:03 Patient visited by Tita Pierre. sew 21:03 Justa Dill is Private Physician. sew 21:03 Patient moved to Waiting sew 21:04 Patient visited by Tita Pierre. sew 21:04 Patient moved to Pre RCE sew 21:15 Triage Initiated ttb 21:33 Patient moved to Triage 3 rs6 21:36 Jose Obrien RPA-C is PHCP. ck7 21:36 Jaden Travis DO is Attending Physician. ck7 21:36 Patient visited by Jose Obrien RPA-C. ck7 21:51 Patient moved to I4 / M4 nn1 22:01 Urinalysis Sent. ld5 22:01 Urine Culture Sent. ld5 22:05 Amylase Sent. kas2 22:05 Basic Metabolic Profile Sent. kas2 22:05 CBC with Diff Sent. kas2 22:05 Lipase Sent. kas2 22:05 Liver Profile Sent. kas2 22:06 Inserted saline lock: 20 gauge in right antecubital area and blood collected. The kas2 patient tolerated the procedure well. No procedures done that require assistance. 22:08 Patient visited by Lacey Bass RN. kas2 22:28 [facility] Payment Agreement was scanned into [employer] and attached to record. gjb 22:33 Patient visited by Maine Kirby,GISEL. ld5 23:04 Patient visited by Maine Kirby,GISEL. ld5 23:22 Patient visited by Maine Kirby,RN. ld5 23:22 CT ABD & PELVIS: IV Contrast Only Returned. EDMS 23:52 Patient visited by Jose Obrien RPA-C. ck7 23:55 Justa Dill is Referral Physician. ck7 0211 00:00 Patient visited by Deb Edwards. ajs 00:01 Discontinued IV bleeding controlled, pressure dressing applied, No redness/swelling at [facility] site. 00:02 Patient visited by Lacey Bass RN. kas2 00:02 The patient / caregiver is instructed regarding the plan of care and ED course. [facility] 10:58 T-Sheet-- Draft Copy was scanned into [employer] and attached to record. gb Administered Medications: 01/08 22:05 Drug: Ondansetron 4 mg [ondansetron HCl 2 mg/mL intravenous solution (2 mL)] Route: kas2 IVP; Site: right antecubital; 23:02 Follow up: Response: No significant change. ld5 22:05 Drug: NS 0.9% 1000 ml [sodium chloride 0.9 % intravenous solution] Route: IV; Rate: kas2 bolus; Site: right antecubital; 01/09 00:02 Follow up: IV Status: Completed infusion; IV Intake: 1000ml kas2 01/08 22:06 Drug: ketorolac 30 mg [ketorolac 30 mg/mL (1 mL) injection solution (1 mL)] Route: IVP; kas2 Site: right antecubital; 23:03 Follow up: Response: No significant change. ld5 23:21 Not Given (other dosage ordered): morphine 4 mg IVP once ld5 23:21 Drug: morphine 2 mg [morphine 2 mg/mL intravenous cartridge (1 mL)] Route: IVP; Site: ld5 right antecubital; Point of Care Testing: Urine : 22:01 hCG Reading: Negative; Control Reading: Positive; ld5 Ranges: Intake: 01/09 00:02 IV: 1000.00ml; Total: 1000.00ml. kas2 Order Results: Lab Order: Amylase; SPEC'M 01/08/17 22:03 Test: AMYLASE; Value: 56; Range: 25-115; Units: U/L; Status: F Lab Order: Basic Metabolic Profile; SPEC'M 01/08/17 22:03 Test: GLUCOSE, FASTING; Value: 89; Range: 70-105; Units: MG/DL; Status: F Test: BLOOD UREA NITROGEN; Value: 10; Range: 7-18; Units: MG/DL; Status: F Test: CREATININE FOR GFR; Value: 0.87; Range: 0.55-1.02; Units: MG/DL; Status: F Test: SODIUM LEVEL; Value: 141; Range: 136-145; Units: MEQ/L; Status: F Test: POTASSIUM SERUM; Value: 3.8; Range: 3.5-5.1; Units: MEQ/L; Status: F Test: CHLORIDE LEVEL; Value: 105; Range: 98-107; Units: MEQ/L; Status: F Test: CARBON DIOXIDE LEVEL; Value: 30; Range: 21-32; Units: MEQ/L; Status: F Test: ANION GAP; Value: 6; Range: 8-16; Abnormal: Below low normal; Units: MEQ/L; Status: F Test: CALCIUM LEVEL; Value: 9.0; Range: 8.5-10.1; Units: MG/DL; Status: F Lab Order: CBC with Diff; SPEC'M 01/08/17 22:03 Test: WHITE BLOOD COUNT; Value: 12.3; Range: 4.0-10.0; Abnormal: Above high normal; Units: K/mm3; Status: F Test: RED BLOOD COUNT; Value: 4.34; Range: 4.00-5.40; Units: M/mm3; Status: F Test: HEMOGLOBIN; Value: 11.8; Range: 12.0-16.0; Abnormal: Below low normal; Units: g/dl; Status: F Test: HEMATOCRIT; Value: 37.1; Range: 36.0-47.0; Units: %; Status: F Test: MEAN CORPUSCULAR VOLUME; Value: 85.6; Range: 80.0-96.0; Units: fl; Status: F Test: MEAN CORPUSCULAR HEMOGLOBIN; Value: 27.2; Range: 27.0-33.0; Units: pg; Status: F Test: MEAN CORPUSCULAR HGB CONC; Value: 31.8; Range: 32.0-36.5; Abnormal: Below low normal; Units: g/dl; Status: F Test: RED CELL DISTRIBUTION WIDTH; Value: 13.0; Range: 11.5-14.5; Units: %; Status: F Test: PLATELET COUNT, AUTOMATED; Value: 326; Range: 150-450; Units: k/mm3; Status: F Test: NEUTROPHILS %; Value: 72.9; Range: 36.0-66.0; Abnormal: Above high normal; Units: %; Status: F Test: LYMPH %; Value: 19.2; Range: 24.0-44.0; Abnormal: Below low normal; Units: %; Status: F Test: MONO %; Value: 4.2; Range: 0.0-5.0; Units: %; Status: F Test: EOS %; Value: 1.8; Range: 0.0-3.0; Units: %; Status: F Test: BASO %; Value: 0.4; Range: 0.0-1.0; Units: %; Status: F Test: LARGE UNSTAINED CELL %; Value: 1.5; Range: 0.0-4.0; Units: %; Status: F Test: NEUTROPHILS #; Value: 9.0; Range: 1.8-7.7; Abnormal: Above high normal; Units: K/mm3; Status: F Test: LYMPH #; Value: 2.4; Range: 1.5-6.5; Units: K/mm3; Status: F Test: MONO #; Value: 0.5; Range: 0.0-0.8; Units: K/mm3; Status: F Test: EOS #; Value: 0.2; Range: 0.0-0.50; Units: K/mm3; Status: F Test: BASO #; Value: 0.1; Range: 0.0-0.2; Units: K/mm3; Status: F Test: LARGE UNSTAINED CELL #; Value: 0.2; Range: 0.0-0.4; Units: K/mm3; Status: F Lab Order: Lipase; [facility] 01/08/17 22:03 Test: LIPASE; Value: 261; Range: 73-393; Units: U/L; Status: F Lab Order: Liver Profile; [facility] 01/08/17 22:03 Test: AST/SGOT; Value: 21; Range: 15-37; Units: U/L; Status: F Test: ALT/SGPT; Value: 33; Range: 12-78; Units: U/L; Status: F Test: ALKALINE PHOSPHATASE; Value: 105; Range: 45-117; Units: U/L; Status: F Test: BILIRUBIN,TOTAL; Value: 0.5; Range: 0.2-1.0; Units: MG/DL; Status: F Test: BILIRUBIN,DIRECT; Value: 0.1; Range: 0.0-0.2; Units: MG/DL; Status: F Test: TOTAL PROTEIN; Value: 7.7; Range: 6.4-8.2; Units: GM/DL; Status: F Test: ALBUMIN; Value: 3.7; Range: 3.2-5.2; Units: GM/DL; Status: F Test: ALBUMIN/GLOBULIN RATIO; Value: 0.93; Range: 1.00-1.93; Abnormal: Below low normal; Status: F Lab Order: Urinalysis; SPEC'M 01/08/17 21:56 Test: APPEARANCE, URINE; Value: HAZY; Range: CLEAR; Status: F Test: COLOR, URINE; Value: YELLOW; Range: YELLOW; Status: F Test: PH,URINE; Value: 6.0; Range: 5.0-9.0; Units: UNITS; Status: F Test: SPECIFIC GRAVITY URINE AUTO; Value: 1.020; Range: 1.002-1.035; Status: F Test: PROTEIN, URINE AUTO; Value: 1+; Range: NEGATIVE; Abnormal: Above high normal; Units: mg/dL; Status: F Test: GLUCOSE, URINE (UA) AUTO; Value: NEGATIVE; Range: NEGATIVE; Units: mg/dL; Status: F Test: KETONE, URINE AUTO; Value: NEGATIVE; Range: NEGATIVE; Units: mg/dL; Status: F Test: UROBILINOGEN, URINE AUTO; Value: 0.2; Range: 0.0-2.0; Units: mg/dL; Status: F Test: BILIRUBIN, URINE AUTO; Value: NEGATIVE; Range: NEGATIVE; Status: F Test: NITRITE, URINE AUTO; Value: NEGATIVE; Range: NEGATIVE; Status: F Test: LEUKOCYTE ESTERASE, URINE AUTO; Value: TRACE; Range: NEGATIVE; Abnormal: Above high normal; Status: F Test: BLOOD, URINE BLOOD; Value: NEGATIVE; Range: NEGATIVE; Status: F Test: WBC, URINE AUTO; Value: 2; Range: 0-3; Units: /HPF; Status: F Test: RBC, URINE AUTO; Value: 1; Range: 0-3; Units: /HPF; Status: F Test: BACTERIA, URINE AUTO; Value: 1+; Range: NEGATIVE; Abnormal: Above high normal; Status: F Test: SQUAMOUS EPITHELIAL CELL UR AU; Value: 8; Range: 0-6; Units: /HPF; Status: F Test: MUCUS, URINE; Value: SMALL; Range: NEGATIVE; Status: F Test: HYALINE CAST, URINE AUTO; Value: 0; Range: 0-1; Units: /LPF; Status: F Lab Order: Urine Culture; SPEC'M 01/08/17 21:56 Test: URINE CULTURE; Value: <EXTERNAL COMMENT eCWMed> FULL REPORT IN LAB NOTES (eCW and Medent).; Status: F Test: URINE CULTURE; Value: URINE CULTURE RESULT; Status: F Test: URINE CULTURE; Value: NO GROWTH CLINICAL SIGNIFICANCE 2 OR MORE ORGANISMS; Status: F Radiology Order: CT ABD & PELVIS: IV Contrast Only Test: CT ABD & PELVIS: IV Contrast Only REASON FOR EXAMINATION: Appendicitis; ; CT of the abdomen and pelvis with contrast; Clinical statement: Pain.; Technique: Multiple axial CT images were obtained from the base of the lungs through the floor of the; pelvis utilizing 5 mm axial slices after administration of nonionic intravenous contrast. Coronal an; d sagittal reconstructions were also obtained.; Comparison: 10/17/2015.; Findings:; Chest: The visualized lung bases are clear.; Abdomen: The liver, spleen, pancreas, kidneys, gallbladder, and adrenal glands are unremarkable. The; aorta is within normal limits. There is no evidence of abdominal lymphadenopathy or ascites.; Pelvis: Moderate amount of stool fills the colon.The bowel is otherwise unremarkable, with no obstruc; tive or inflammatory changes. The appendix is normal. The urinary bladder is within normal limits. Th; ere is a small simple right ovarian cyst measuring 1.7 x 2.1 cm. The other pelvic structures appear g; rossly intact. There is no evidence of pelvic lymphadenopathy or ascites.; Bones: There are no suspicious osseous abnormalities seen.; Impression:; 1. No obstructive or inflammatory bowel changes. Mild constipation.; 2. Small simple right ovarian cyst.; ; ; Outcome: 01/08 23:55 Discharge ordered by Provider. ck7 01/09 00:01 Discharge Assessment: patient administered narcotics - yes. Pt provided with safe kas2 discharge. The following High Risk Discharge criteria are identified: None. Discharged to home ambulatory, with family. Condition: good Condition: stable Condition: improved. CT Study completed. Property :Personal belongings accompany Pt. 00:02 Patient left the ED. kas2 Signatures: Dispatcher [employer] EDNyasia Lozano, [place] Du RN RN ld5 Deb Edwards Christopher, RPA-C RPA-Cck7 Tita Pierre Teresa, RN RN ttb Tessy Lemus, ART SUPERVISOR ART SUPERVISOR rs6 Erum Dale,RN RN nn1 Justa Mckoy Kim,RN RN kas2 Chart Complete MTDD
== END 2017-01-09 00:02 | disposition home or self-care (01) ==
LOC: M ED 21:01
DX: K59.00 Constipation, unspecified (principal); N83.201 Unspecified ovarian cyst, right side; E03.9 Hypothyroidism, unspecified; Z88.1 Allergy status to other antibiotic agents
CPT/HCPCS: 36415; 74177; 80048; 80076; 81001; 81025; 82150; 83690; 85025; 87086; 96361; 96374; 96375; 99284; J1885; J2405; Q9967

== ENCOUNTER → 2017-05-28 | Outpatient (REF) | payer MEDICARE, MEDICAID ==
[~2017-05-28] MED LIST changes: +BENT20TA PO; +DICY20TA11 PO; +HYOS1TAB PO; +HYOS1TAB SL; +LEVO25TA34 PO; +LEVO50TA45 PO; +OMEP40CA2 PO; +REGL10TA6 PO
[2017-05-28 12:56] LABS: BASO % 0.7 % (0.0-1.0); EOS # 0.2 K/mm3 (0.0-0.50); EOS % 3.4 % (0.0-3.0); LARGE UNSTAINED CELL # 0.1 K/mm3 (0.0-0.4); LARGE UNSTAINED CELL % 1.8 % (0.0-4.0); LYMPH % 37.3 % (24.0-44.0); MEAN CORPUSCULAR HEMOGLOBIN 27.7 pg (27.0-33.0); MEAN CORPUSCULAR HGB CONC 32.9 g/dl (32.0-36.5); MEAN CORPUSCULAR VOLUME 84.4 fl (80.0-96.0); MONO # 0.3 K/mm3 (0.0-0.8); NEUTROPHILS # 2.7 K/mm3 (1.8-7.7); NEUTROPHILS % 51.8 % (36.0-66.0); PLATELET COUNT, AUTOMATED 306 k/mm3 (150-450); RED CELL DISTRIBUTION WIDTH 14.7 % (11.5-14.5); WHITE BLOOD COUNT 5.2 K/mm3 (4.0-10.0)
[2017-05-28 13:36] LABS: ALBUMIN 3.4 GM/DL (3.2-5.2); ALBUMIN/GLOBULIN RATIO 0.87 (1.00-1.93); ALKALINE PHOSPHATASE 75 U/L (45-117); ALT/SGPT 28 U/L (12-78); AMYLASE 65 U/L (25-115); ANION GAP 5 MEQ/L (8-16); AST/SGOT 12 U/L (15-37); BILIRUBIN,TOTAL 0.5 MG/DL (0.2-1.0); BLOOD UREA NITROGEN 15 MG/DL (7-18); CALCIUM LEVEL 9.3 MG/DL (8.5-10.1); CARBON DIOXIDE LEVEL 30 MEQ/L (21-32); CHLORIDE LEVEL 106 MEQ/L (98-107); CREATININE FOR GFR 0.79 MG/DL (0.55-1.02); GLUCOSE, FASTING 96 MG/DL (70-105); POTASSIUM SERUM 4.4 MEQ/L (3.5-5.1); SODIUM LEVEL 141 MEQ/L (136-145); TOTAL PROTEIN 7.3 GM/DL (6.4-8.2)
== END ==
LOC: M SFHCADAM 11:27
PROVIDERS: ATTEND Family Medicine
DX: R10.11 Right upper quadrant pain (principal)
CPT/HCPCS: 80053; 82150; 83690; 85025; G0463

== ENCOUNTER 2017-05-29 23:20 | Emergency (ER) | payer MEDICARE, MEDICAID ==
[~2017-05-29] VITALS: Ht 154.9 cm; Wt 115.6 kg
[~2017-05-29 23:20] MED LIST changes: -BENT20TA PO; -DICY20TA11 PO; -HYOS1TAB PO; -HYOS1TAB SL; -LEVO25TA34 PO; -LEVO50TA45 PO; -OMEP40CA2 PO; -REGL10TA6 PO
[2017-05-30] MEDS ORDERED: LEVO25TA34 PO (00:07)
[2017-05-30] MEDS ORDERED: ONDANSETRON 4MG/2ML VIAL (J2405) IV ONE (04:15)
[2017-05-30] MEDS ORDERED: NS 1,000 ML IV ONE (04:15)
[2017-05-30] MEDS: MORPHINE 4 MG/ML 1ML SYRINGE IV PRN ×2 (04:38→05:30)
[2017-05-30 05:00] LABS: BASO # 0.1 K/mm3 (0.0-0.2); BASO % 1.1 % (0.0-1.0); EOS # 0.3 K/mm3 (0.0-0.50); EOS % 4.4 % (0.0-3.0); LARGE UNSTAINED CELL # 0.1 K/mm3 (0.0-0.4); LARGE UNSTAINED CELL % 2.1 % (0.0-4.0); LYMPH % 44.3 % (24.0-44.0); MEAN CORPUSCULAR HEMOGLOBIN 26.8 pg (27.0-33.0); MEAN CORPUSCULAR HGB CONC 31.6 g/dl (32.0-36.5); MONO # 0.4 K/mm3 (0.0-0.8); MONO % 5.4 % (0.0-5.0); NEUTROPHILS # 2.8 K/mm3 (1.8-7.7); NEUTROPHILS % 42.6 % (36.0-66.0); PLATELET COUNT, AUTOMATED 274 k/mm3 (150-450); RED CELL DISTRIBUTION WIDTH 14.8 % (11.5-14.5); WHITE BLOOD COUNT 6.5 K/mm3 (4.0-10.0)
[2017-05-30 05:05] LABS: CONTROL LINE HCG INT CTR LINE PRESENT
[2017-05-30 05:13] LABS: ALBUMIN 3.6 GM/DL (3.2-5.2); ALBUMIN/GLOBULIN RATIO 0.92 (1.00-1.93); ALKALINE PHOSPHATASE 79 U/L (45-117); ALT/SGPT 26 U/L (12-78); ANION GAP 8 MEQ/L (8-16); AST/SGOT 16 U/L (15-37); BILIRUBIN,DIRECT < 0.1 MG/DL (0.0-0.2); BILIRUBIN,TOTAL 0.4 MG/DL (0.2-1.0); BLOOD UREA NITROGEN 12 MG/DL (7-18); CALCIUM LEVEL 9.2 MG/DL (8.5-10.1); CARBON DIOXIDE LEVEL 25 MEQ/L (21-32); CHLORIDE LEVEL 107 MEQ/L (98-107); CREATININE FOR GFR 0.85 MG/DL (0.55-1.02); GLUCOSE, FASTING 92 MG/DL (70-105); POTASSIUM SERUM 4.3 MEQ/L (3.5-5.1); SODIUM LEVEL 140 MEQ/L (136-145); TOTAL PROTEIN 7.5 GM/DL (6.4-8.2)
--- NOTE | 2017-05-30 05:20 | REPUSA ---
CLINICAL HISTORY: Abdominal pain. TECHNIQUE: Realtime sonographic images were obtained in multiple projections. Limited study due to serrano bitus. COMMENTS: The liver is of normal size, parenchyma demonstrates normal echogenicity. No discrete hepatic mass is seen. There is no intra or extrahepatic biliary ductal dilatation. CBD measures 3 mm . The gallbladder is p hysiologically distended without evidence of calculi. The gallbladder wall is not thickened and there is no pericholecystic fluid. There is no abdominal ascites. The right kidney measures 9.6 cm, free of hydronephrosis. IMPRESSION: Unremarkable study. Thank you for your kind referral of this patient.
[2017-05-30] MEDS ORDERED: HYOS1TAB PO (05:51)
[2017-05-30] MEDS ORDERED: HYOSCYAMINE SULFATE 0.125 MG SUBL TABLET PO ONE (06:00)
[2017-05-30 06:03] VITALS: BP 120/56
== END 2017-05-30 06:07 | disposition home or self-care (01) ==
LOC: M ED 23:20
DX: K80.50 Calculus of bile duct without cholangitis or cholecystitis without obstruction (principal)
CPT/HCPCS: 76705; 80048; 80076; 83690; 84703; 85025; 93041; 96361; 96374; 96375; 99284; J2405

== ENCOUNTER 2017-06-09 21:22 | Emergency (ER) | payer MEDICARE, MEDICAID ==
[~2017-06-09] VITALS: Ht 162.6 cm; Wt 114.2 kg
[~2017-06-09 21:22] MED LIST changes: +HYOS1TAB PO; +LEVO25TA34 PO
[2017-06-10 02:50] LABS: BASO # 0.1 K/mm3 (0.0-0.2); BASO % 1.2 % (0.0-1.0); EOS # 0.2 K/mm3 (0.0-0.50); EOS % 2.5 % (0.0-3.0); LARGE UNSTAINED CELL # 0.2 K/mm3 (0.0-0.4); LARGE UNSTAINED CELL % 2.5 % (0.0-4.0); LYMPH # 2.8 K/mm3 (1.5-6.5); LYMPH % 36.2 % (24.0-44.0); MEAN CORPUSCULAR HEMOGLOBIN 27.6 pg (27.0-33.0); MEAN CORPUSCULAR HGB CONC 33.1 g/dl (32.0-36.5); MEAN CORPUSCULAR VOLUME 83.4 fl (80.0-96.0); MONO # 0.5 K/mm3 (0.0-0.8); MONO % 5.9 % (0.0-5.0); NEUTROPHILS % 51.7 % (36.0-66.0); PLATELET COUNT, AUTOMATED 335 k/mm3 (150-450); RED CELL DISTRIBUTION WIDTH 14.4 % (11.5-14.5); WHITE BLOOD COUNT 7.6 K/mm3 (4.0-10.0)
[2017-06-10] MEDS ORDERED: KETOROLAC 30 MG/ML VIAL (J1885) IV ONE (03:00)
[2017-06-10] MEDS ORDERED: ONDANSETRON 4MG/2ML VIAL (J2405) IV ONE (03:00)
[2017-06-10 03:03] LABS: CONTROL LINE HCG INT CTR LINE PRESENT
[2017-06-10 03:21] LABS: ALBUMIN 3.6 GM/DL (3.2-5.2); ALKALINE PHOSPHATASE 85 U/L (45-117); ALT/SGPT 29 U/L (12-78); AMYLASE 53 U/L (25-115); ANION GAP 9 MEQ/L (8-16); AST/SGOT 19 U/L (15-37); BILIRUBIN,DIRECT 0.1 MG/DL (0.0-0.2); BILIRUBIN,TOTAL 0.4 MG/DL (0.2-1.0); BLOOD UREA NITROGEN 16 MG/DL (7-18); CALCIUM LEVEL 8.9 MG/DL (8.5-10.1); CARBON DIOXIDE LEVEL 25 MEQ/L (21-32); CHLORIDE LEVEL 106 MEQ/L (98-107); GLUCOSE, FASTING 89 MG/DL (70-105); POTASSIUM SERUM 3.9 MEQ/L (3.5-5.1); SODIUM LEVEL 140 MEQ/L (136-145); T UPTAKE 35 % (30-39); THYROXINE (T4) 8.7 UG/DL (6.0-11.6); TOTAL PROTEIN 7.2 GM/DL (6.4-8.2)
[2017-06-10] MEDS ORDERED: ISOVUE-370 76% 100ML VIAL (Q9967) As Ordered ONE (03:21)
[2017-06-10] MEDS ORDERED: MORPHINE 4 MG/ML 1ML SYRINGE IV PRN (04:45)
--- NOTE | 2017-06-10 04:50 | REPUSA ---
CLINICAL HISTORY: Abdominal pain. TECHNIQUE: Multiple axial, sagittal and coronal CT images were obtained through the abdomen and pelvi s after administration of intravenous contrast material. COMMENTS: Comparison is made to the prior exam performed on 01/08/2017. Moderate large bowel fecal stasis. The liver remains moderately enlarged with decreased attenuation without mass or defect. There is no intra or extrahepatic biliary ductal dilatation. The spleen is normal. The gallbladder is within norm al limits. The pancreas is of normal contour and attenuation characteristics. There is no evidence of adrenal mass. Both kidneys demonstrate prompt and equal nephrograms. The kidneys are normal in size, shape and conf iguration. There is no evidence of renal or ureteral mass. No renal or ureteral calculi are identifie d. There is no hydroureter or hydronephrosis. No evidence for appendicitis. There is no bowel wall thickening. No evidence for small or large josé luis l obstruction. There is no evidence of abdominal ascites or lymphadenopathy. There is no evidence of intrinsic or extrinsic bladder mass. There is no pelvic ascites or lymphadeno beth. Mild diffuse thickening of the lower of the bladder. Images of the lung bases show no evidence of pleural or parenchymal mass. There are no pleural effusi ons. The bony structures are free of lytic or blastic lesions. Multilevel degenerative changes are seen in volving the thoracolumbar spine. Scattered calcifications are seen involving the aorta and major bran ches compatible with atherosclerosis. IMPRESSION: Unchanged moderate constipation. Mildly thickened bladder. Underdistention versus mild cystitis. Unchanged hepatomegaly with fatty infiltration. Thank you for your kind referral of this patient.
[2017-06-10] MEDS ORDERED: BENT20TA PO (05:37)
[2017-06-10] MEDS ORDERED: DICYCLOMINE 10 MG CAP PO ONE (05:45)
[2017-06-10 06:54] VITALS: BP 129/83
== END 2017-06-10 06:55 | disposition home or self-care (01) ==
LOC: M ED 21:22
DX: R10.11 Right upper quadrant pain (principal); E03.9 Hypothyroidism, unspecified
CPT/HCPCS: 36415; 74177; 80048; 80076; 81001; 82150; 83690; 84436; 84443; 84479; 84703; 85025; 87086; 96374; 96375; 99284; J1885; J2405; Q9967

== ENCOUNTER 2017-06-27 22:19 | Inpatient (IN) | payer MEDICARE, MEDICAID ==
[~2017-06-27] VITALS: Ht 160 cm; Wt 108.7 kg
[~2017-06-27 22:19] MED LIST changes: +BENT20TA PO
[2017-06-27] MEDS ORDERED: KETOROLAC 30 MG/ML VIAL (J1885) IV ONE (23:15)
[2017-06-27 23:26] LABS: BASO % 0.6 % (0.0-1.0); EOS # 0.2 K/mm3 (0.0-0.50); EOS % 3.7 % (0.0-3.0); LARGE UNSTAINED CELL # 0.1 K/mm3 (0.0-0.4); LARGE UNSTAINED CELL % 1.5 % (0.0-4.0); LYMPH # 2.5 K/mm3 (1.5-6.5); LYMPH % 35.9 % (24.0-44.0); MEAN CORPUSCULAR HEMOGLOBIN 27.3 pg (27.0-33.0); MEAN CORPUSCULAR HGB CONC 32.6 g/dl (32.0-36.5); MEAN CORPUSCULAR VOLUME 83.9 fl (80.0-96.0); MONO # 0.4 K/mm3 (0.0-0.8); MONO % 6.5 % (0.0-5.0); NEUTROPHILS # 3.4 K/mm3 (1.8-7.7); NEUTROPHILS % 51.8 % (36.0-66.0); PLATELET COUNT, AUTOMATED 299 k/mm3 (150-450); RED CELL DISTRIBUTION WIDTH 14.7 % (11.5-14.5); WHITE BLOOD COUNT 6.6 K/mm3 (4.0-10.0)
[2017-06-27 23:51] LABS: ALBUMIN 3.2 GM/DL (3.2-5.2); ALKALINE PHOSPHATASE 89 U/L (45-117); ALT/SGPT 25 U/L (12-78); ANION GAP 6 MEQ/L (8-16); AST/SGOT 16 U/L (15-37); BILIRUBIN,DIRECT 0.1 MG/DL (0.0-0.2); BILIRUBIN,TOTAL 0.4 MG/DL (0.2-1.0); BLOOD UREA NITROGEN 15 MG/DL (7-18); CARBON DIOXIDE LEVEL 29 MEQ/L (21-32); CHLORIDE LEVEL 106 MEQ/L (98-107); CREATININE FOR GFR 0.95 MG/DL (0.55-1.02); GLUCOSE, FASTING 90 MG/DL (70-105); SODIUM LEVEL 141 MEQ/L (136-145); TOTAL PROTEIN 7.2 GM/DL (6.4-8.2)
--- NOTE | 2017-06-28 01:20 | REPUSA ---
CLINICAL HISTORY: Pancreatitis. TECHNIQUE: Multiple axial, sagittal and coronal CT images were obtained through the abdomen and pelvi s without administration of oral or IV contrast material. COMMENTS: Comparison is made to the prior exam of 06/10/2017. Interval appearance of minimal peripancreatic fat thickening. The liver is of uniform attenuation without mass or defect. There is no intra or extrahepatic biliary ductal dilatation. The spleen is normal. The gallbladder is within normal limits. The pancreas is of normal contour and attenuation characteristics. There is no evidence of adrenal mass. The kidneys are normal in size, shape and configuration. No renal or ureteral calculi are identified. There is no hydroureter or hydronephrosis. There is no evidence for appendicitis. There is no bowel wall thickening. No evidence for small or la rge bowel obstruction. There is no evidence of abdominal ascites or lymphadenopathy. Mild fecal stasis in the colon. There is no evidence of intrinsic or extrinsic bladder mass. There is no pelvic ascites or lymphadeno beth. Images of the lung bases show no evidence of pleural or parenchymal mass. There are no pleural effusi ons. The bony structures are free of lytic or blastic lesions. IMPRESSION: Minimal peripancreatic fat thickening. Please correlate with lipase value to exclude minimal pancreat itis. Thank you for your kind referral of this patient.
[2017-06-28] MEDS ORDERED: MORPHINE 2 MG/ML 1ML SYRINGE IV PRN (03:15)
[2017-06-28] MEDS ORDERED: LEVO50TA45 PO (03:15)
[2017-06-28] MEDS ORDERED: DICY20TA11 PO (03:15)
[2017-06-28] MEDS ORDERED: ONDANSETRON 4MG/2ML VIAL (J2405) IV PRN (03:15)
[2017-06-28] MEDS ORDERED: OMEP40CA2 PO (03:15)
[2017-06-28] MEDS ORDERED: HYOS1TAB SL (03:15)
[2017-06-28 05:10] VITALS: BP 134/75
[2017-06-28] MEDS: NS 1,000 ML IV SCH ×4 (05:46→21:57)
[2017-06-28] MEDS: ENOXAPARIN 40 MG/0.4 ML SYRINGE (J1650) SC SCH (09:08)
[2017-06-28] MEDS: PANTOPRAZOLE 40MG INJ (PROTONIX) (C9113) IV SCH (09:08)
[2017-06-28 09:28] LABS: MEAN CORPUSCULAR HEMOGLOBIN 27.8 pg (27.0-33.0); MEAN CORPUSCULAR VOLUME 84.2 fl (80.0-96.0); RED CELL DISTRIBUTION WIDTH 14.4 % (11.5-14.5); WHITE BLOOD COUNT 5.4 K/mm3 (4.0-10.0)
--- NOTE | 2017-06-28 09:35 | HPE ---
DATE OF ADMISSION: 06/28/2017 ATTENDING PHYSICIAN: Dr. Dill. CHIEF COMPLAINT: Abdominal pain. HISTORY OF PRESENT ILLNESS (HPI) : The patient is a 21-year-old white female with history of pancreatitis who presents to the hospital for evaluation of abdominal pain. The history is provided by herself but she is a poor historian. Her mom is also with her in the emergency room (ER). Per medical record the patient has several episodes of pancreatitis. She had a significant work up in the past including CT of the gallbladder and ultrasound which turned out negative. Also, the patient and her mom states she is scheduled for a HIDA (hepatobiliary scintigraphy) scan and is going to see a general surgeon in the next few weeks. Today after eating a meal she said she developed severe pain which is located in the right upper quadrant. At worse the pain is a 10, no radiation and it is a sharp pain associated with nausea but no vomiting and no fever, no chills, no radiation of the pain. After she came to the ER the lipase is initially increased and mostly she had a recurrent pancreatitis. She was given intravenous (IV) fluids and pain management in the ER. Meanwhile medicine service called for admission. REVIEW OF SYSTEMS: Denies fever, no chills, no Denies headache. No blurry vision. No shortness of breath. No chest pain. Possibly some nausea but no vomiting. Positive right upper quadrant abdominal pain, no diarrhea. No tingling , numbness, weakness in the arms or lower extremities. All other systems reviewed were negative. PAST MEDICAL HISTORY: 1. Recurrent pancreatitis without known etiology. 2. Hypothyroidism. 3. Morbid obesity. PAST SURGICAL HISTORY: None. ALLERGIES: CIPRO. FAMILY HISTORY: The mother and the father have history of diabetes. No family history of pancreatitis. MEDICATIONS: - Synthroid 25 mcg by mouth daily PHYSICAL EXAMINATION: VITAL SIGNS: Temperature 98.3, heart rate 99, respirations 18, blood pressure 136/81, Oxygen sat 98% on room air. GENERAL: She is awake, alert and oriented times three. She is not in acute distress. HEENT: Atraumatic, pupils equal, round, and reactive to light. No jaundice. Ears, nose and throat normal. Mucosa dry. NECK: No jugular venous distention (JVD), no bruits. LUNGS: Clear. No wheezes, no crackles. HEART: S1, S2, regular, no murmur. ABDOMEN: Soft, bowel sounds positive. She has mild tenderness in her right upper quadrant but no rebound. LOWER EXTREMITIES: No edema in her bilateral lower extremities. NEUROLOGIC: Nonfocal. PSYCHIATRIC: No acute psychosis. DIAGNOSTIC LAB STUDIES: CBC and differential showed WBC 6.7, hemoglobin and hematocrit 11.4 over 33, platelets 299. Sodium is 141, potassium 4.0, chloride 106, bicarbonate 29, BUN 15, creatinine 0.9, glucose 90, lipase is up to 1131. CT of the abdomen and pelvis did not show acute changes. IMPRESSION: 1. Recurrent acute pancreatitis. 2. Hypothyroidism. 3. Morbid obesity. PLAN: The patient will be admitted to the medical-surgical floor. She will be treated with IV fluids, pain control and keep her nothing by mouth. Will schedule a HIDA scan. Dr. Dill's group will followup tomorrow. She has recurrent pancreatitis, currently the etiology is unknown. She is supposed to followup with general surgeon, Dr. Brady. If her HIDA scan is abnormal, she may need a consult with Dr. Brady. [facility] PS[facility]ATRIC HOSPITALNancie
[2017-06-28 09:42] LABS: ANION GAP 9 MEQ/L (8-16); BLOOD UREA NITROGEN 16 MG/DL (7-18); CALCIUM LEVEL 8.8 MG/DL (8.5-10.1); CARBON DIOXIDE LEVEL 25 MEQ/L (21-32); CHLORIDE LEVEL 108 MEQ/L (98-107); CREATININE FOR GFR 0.83 MG/DL (0.55-1.02); GLOMERULAR FILTRATION RATE > 60.0 (>60); GLUCOSE, FASTING 81 MG/DL (70-105); MAGNESIUM LEVEL 2.2 MG/DL (1.8-2.4); POTASSIUM SERUM 4.1 MEQ/L (3.5-5.1); SODIUM LEVEL 142 MEQ/L (136-145)
--- NOTE | 2017-06-28 11:22 | IPNPDOC ---
Subjective Date Seen The patient was seen on 06/28/17. Subjective Chief Complaint/HPI The patient is a 22-year-old female admitted with a reason for visit of Acute Pancreatitis. Events since last encounter Pt's mom at bedside. Pt c/o RUQ tenderness. Some nausea, denies vomiting. Just returned from HIDA. General: Denies: Fatigue Constitutional: Denies: Chills, Fever Pulmonary: Denies: Dyspnea, Cough Cardiovascular: Denies: Chest Pain, Palpitations Gastrointestinal: Denies: Nausea, Vomiting Neurological: Denies: Weakness Psych: Reports: Mood Normal Objective Physical Examination General Exam: Positive: Alert, No Acute Distress ENT Exam: Positive: Mucous membr. moist/pink Chest Exam: Positive: Clear to auscultation, Normal air movement Heart Exam: Positive: Rate Normal, Normal S1, Normal S2 Abdomen Exam: Positive: Normal bowel sounds, Soft, Tenderness (RUQ, no rebound or guarding.) Extremity Exam: Negative: Edema Assessment /Plan Problems (1) Acute pancreatitis Status: Acute Response to Treatment: Stable Discussed With: Nurse, Patient, Family with Pt Consent Problem Specific Plan: Monitor Clinically, Repeat Labs Problem Text: 3rd episode (previous 04/2017, 09/2015-all mild s amylase elevation)-this one precipitated by large ham/bologna sandwich per patient 06/28 Cont with NPO, IVF, Lipase 769 (1131, 06/10 367 c amylase 53), remains afebrile, recheck TG/IgG4, favor outpx EGD +/- ERCP if - MRCP 08/2016 TG 81 06/28 MRCP P no obvious precipitating meds/no EthOH use 06/28 HIDA: IMPRESSION: Homogeneous tracer distribution throughout the liver with appearance of activity in the gallbladder by 15 minutes and normal biliary to bowel transit by at least 45 minutes from initial injection with good washout of activity from the liver. Normal biliary scan. 06/27 CT AP: IMPRESSION: Minimal peripancreatic fat thickening. Please correlate with lipase value to exclude minimal pancreatitis. 05/30 gb US: IMPRESSION: Unremarkable study. (2) GERD (gastroesophageal reflux disease) Status: Chronic Response to Treatment: Stable Problem Specific Plan: Monitor Clinically Problem Text: Cont with PPI. (3) Morbid obesity Status: Chronic Problem Specific Plan: Monitor Clinically Plan/VTE VTE Prophylaxis Ordered?: Yes VS, I&O, 24H, Fishbone Vital Signs/I&O Vital Signs Date Time Temp Pulse Resp B/P (MAP) Pulse Ox O2 Delivery O2 Flow Rate FiO2 06/28/17 05:56 17 Room Air 06/28/17 05:10 98.3 71 134/75 (94) 95 I&O- Last 24 Hours up to 6 AM 06/28/17 06:00 Intake Total 0 ml Output Total 0 ml Balance 0 ml Laboratory Data 24H LABS Laboratory Tests 2 06/27/17 23:20: White Blood Count 6.6, Red Blood Count 4.17, Hemoglobin 11.4L, Hematocrit 35.0L , Mean Corpuscular Volume 83.9, Mean Corpuscular Hemoglobin 27.3, Mean Corpuscular Hemoglobin Concent 32.6, Red Cell Distribution Width 14.7H, Platelet Count 299, Neutrophils (%) (Auto) 51.8, Lymphocytes (%) (Auto) 35.9, Monocytes (%) (Auto) 6.5H, Eosinophils (%) (Auto) 3.7H, Basophils (%) (Auto) 0.6 , Neutrophils # (Auto) 3.4, Lymphocytes # (Auto) 2.5, Monocytes # (Auto) 0.4, Eosinophils # (Auto) 0.2, Basophils # (Auto) 0.0, Large Unclassified Cells % 1.5 , Large Unclassified Cells # 0.1, Anion Gap 6L, Calcium Level 9.0, Aspartate Amino Transf (AST/SGOT) 16, Alanine Aminotransferase (ALT/SGPT) 25, Alkaline Phosphatase 89, Total Bilirubin 0.4, Direct Bilirubin 0.1, Total Protein 7.2, Albumin 3.2, Albumin/Globulin Ratio 0.80L, Lipase 1131H 06/28/17 09:01: Anion Gap 9, Calcium Level 8.8, Lipase 769H, Glomerular Filtration Rate > 60.0, Blood Urea Nitrogen 16, Creatinine 0.83, Sodium Level 142, Potassium Level 4.1, Chloride Level 108H, Carbon Dioxide Level 25, Magnesium Level 2.2 CBC/BMP Laboratory Tests 06/27/17 23:20 Red Blood Count 4.17, Mean Corpuscular Volume 83.9, Mean Corpuscular Hemoglobin 27.3, Mean Corpuscular Hemoglobin Concent 32.6, Red Cell Distribution Width 14.7 H, Neutrophils (%) (Auto) 51.8, Lymphocytes (%) (Auto) 35.9, Monocytes (%) (Auto) 6.5 H, Eosinophils (%) (Auto) 3.7 H, Basophils (%) (Auto) 0.6, Neutrophils # (Auto) 3.4, Lymphocytes # (Auto) 2.5, Monocytes # (Auto) 0.4, Eosinophils # (Auto) 0.2, Basophils # (Auto) 0.0 06/28/17 09:01 Red Blood Count 4.27, Mean Corpuscular Volume 84.2, Mean Corpuscular Hemoglobin 27.8, Mean Corpuscular Hemoglobin Concent 33.0, Red Cell Distribution Width 14.4 , Calcium Level 8.8 SHANTE LARKIN PA-C Jun 28, 2017 11:22 Jcarlos Tapia M.D. Jun 28, 2017 16:13
--- NOTE | 2017-06-28 13:13 | REP ---
BILIARY SCAN: 06/28/2017 CLINICAL HISTORY: Pancreatitis. Abdominal/right upper quadrant pain. Nausea and tenderness. COMPARISON: Gallbladder ultrasound 05/30/2017, CT abdomen pelvis 06/28/2017. TECHNIQUE: The patient received 6.3 mCi technetium 99m mebrofenin via an IV. Sequential 5-minute images for 1 hour were obtained along with a lateral view of 1 hour. The tracer distribution through the liver is homogeneous except for the right shadow over the right hepatic lobe. Activity is first seen in the gallbladder fossa at 15 minutes with activity into the duodenum by 35 minutes and peristalsis into small bowel by 40 minutes. Progressive filling of activity in the gallbladder fossa and progressive washout of activity from the liver are noted. IMPRESSION: 1. Homogeneous tracer distribution throughout the liver with appearance of activity in the gallbladder by 15 minutes and normal biliary to bowel transit by at least 45 minutes from initial injection with good washout of activity from the liver. Normal biliary scan. Signed by Vasu Garcia MD 06/28/2017 09:20 P
[2017-06-28 14:00] VITALS: BP 155/79
--- NOTE | 2017-06-28 19:38 | REP ---
MRI ABDOMEN WITHOUT CONTRAST: 06/28/2017. Comparison: CT abdomen and pelvis without contrast earlier this date. That CT suggested possible minimal pancreatitis. Technique: TrueFISP coronal T2, axial T2 HASTE and thick slab T2-weighted coronal images rotated about the longitudinal axis of the spine. Thin slab coronal reconstructions in T2 settings with reconstructions of the biliary tree about the longitudinal axis of the body. Findings: The MRCP component of the biliary tree is somewhat limited on the volume acquisition by motion artifact. On the static thick slab T2 images, the extrahepatic common duct is without filling defect. It has a maximum diameter of 5.9 mm. Within the pancreatic head it tapers 3.9 mm. There is no filling defect or cutoff to the ampulla. I cannot confirm any persistent filling defect in the gallbladder. The liver is homogeneous and not enlarged. I do not see definite fluid collections or peripancreatic abscess. No seroma, pancreatic pseudocyst or other parenchymal fluid in the abdomen. The aorta is unremarkable. Spleen intact. Adrenal glands symmetric. Kidneys show no hydronephrosis or mass in the upper two/thirds that are included in the spine. Impression: 1. MRI images cannot confirm pancreatitis although motion artifact degrades image quality somewhat. No persistent filling defect in the gallbladder to suggest stone. The common duct is 5.9 mm without filling defect or vessel cutoff. It tapers in the pancreatic head to 3.9 mm reaching the ampulla. No intrahepatic dilatation or other acute finding. Signed by Vasu Garcia MD 06/28/2017 09:30 P
[2017-06-28 22:00] VITALS: BP 142/65
[2017-06-29] MEDS: NS 1,000 ML IV SCH ×3 (05:20→21:38)
[2017-06-29 06:00] VITALS: BP 106/60
[2017-06-29] MEDS: PANTOPRAZOLE 40MG INJ (PROTONIX) (C9113) IV SCH (10:02)
[2017-06-29] MEDS: ENOXAPARIN 40 MG/0.4 ML SYRINGE (J1650) SC SCH (10:02)
--- NOTE | 2017-06-29 11:27 | IPNPDOC ---
Subjective Date Seen The patient was seen on 06/29/17. Subjective Chief Complaint/HPI The patient is a 22-year-old female admitted with a reason for visit of Acute Pancreatitis. Events since last encounter Pt reports no abd pain this morning, she wants to eat. Pt denies N/V. Her mother is at bedside. General: Denies: Fatigue Constitutional: Denies: Chills, Fever Pulmonary: Denies: Dyspnea, Cough Cardiovascular: Denies: Chest Pain, Palpitations Gastrointestinal: Denies: Nausea, Vomiting, Diarrhea Neurological: Denies: Weakness Psych: Reports: Mood Normal Objective Physical Examination General Exam: Positive: Alert, No Acute Distress ENT Exam: Positive: Mucous membr. moist/pink Chest Exam: Positive: Clear to auscultation, Normal air movement Heart Exam: Positive: Rate Normal, Normal S1, Normal S2 Abdomen Exam: Positive: Normal bowel sounds, Soft, Negative: Tenderness Extremity Exam: Negative: Edema Assessment /Plan Problems (1) Acute pancreatitis Status: Acute Response to Treatment: Stable Discussed With: Nurse, Patient, Family with Pt Consent Problem Specific Plan: Monitor Clinically, Repeat Labs Problem Text: 3rd episode (previous 04/2017, 09/2015-all mild s amylase elevation)-this one precipitated by large ham/bologna sandwich per patient 06/29 ? stenotic CBD-favor outpx ERCP (no unassigned GI coverage until 07/01-then Temitope), given 0 pain-ADAT 06/28 Cont with NPO, IVF, Lipase 769 (1131, 06/10 367 c amylase 53), remains afebrile, recheck TG/IgG4, favor outpx EGD +/- ERCP if - MRCP 05/2017 83 06/28 MRCP P no obvious precipitating meds/no EthOH use 06/29 MRCP: No persistent filling defect in the gallbladder to suggest stone. The common duct is 5.9 mm without filling defect or vessel cutoff. It tapers in the pancreatic head to 3.9 mm reaching the ampulla. No intrahepatic dilatation or other acute finding. 06/28 HIDA: IMPRESSION: Homogeneous tracer distribution throughout the liver with appearance of activity in the gallbladder by 15 minutes and normal biliary to bowel transit by at least 45 minutes from initial injection with good washout of activity from the liver. Normal biliary scan. 06/27 CT AP: IMPRESSION: Minimal peripancreatic fat thickening. Please correlate with lipase value to exclude minimal pancreatitis. 05/30 gb US: IMPRESSION: Unremarkable study. (2) GERD (gastroesophageal reflux disease) Status: Chronic Response to Treatment: Stable Problem Specific Plan: Monitor Clinically Problem Text: Cont with PPI. (3) Morbid obesity Status: Chronic Problem Specific Plan: Monitor Clinically Plan/VTE VTE Prophylaxis Ordered?: Yes VS, I&O, 24H, Fishbone Vital Signs/I&O Vital Signs Date Time Temp Pulse Resp B/P (MAP) Pulse Ox O2 Delivery O2 Flow Rate FiO2 06/29/17 06:00 97.4 74 19 106/60 (75) 98 Room Air I&O- Last 24 Hours up to 6 AM 06/29/17 06:00 Intake Total 2000 ml Output Total 1750 ml Balance 250 ml Laboratory Data 24H LABS Laboratory Tests 2 06/28/17 16:29: Triglycerides Level 83, LDL Cholesterol 86.4, Total Cholesterol 165, Non-HDL Cholesterol (LDL + VLDL) 103, Total HDL Cholesterol 62, Cholesterol/HDL Ratio 2.661 SHANTE LARKIN PA-C Jun 29, 2017 11:27 Jcarlos Tapia M.D. Jun 29, 2017 16:28
[2017-06-29 14:00] VITALS: BP 126/82
[2017-06-29 22:00] VITALS: BP 138/73
[2017-06-30 06:00] VITALS: BP 128/66
[2017-06-30 06:35] LABS: BASO % 0.4 % (0.0-1.0); EOS # 0.2 K/mm3 (0.0-0.50); EOS % 4.2 % (0.0-3.0); LARGE UNSTAINED CELL # 0.1 K/mm3 (0.0-0.4); LARGE UNSTAINED CELL % 1.2 % (0.0-4.0); LYMPH # 1.5 K/mm3 (1.5-6.5); LYMPH % 32.2 % (24.0-44.0); MEAN CORPUSCULAR HEMOGLOBIN 27.8 pg (27.0-33.0); MEAN CORPUSCULAR HGB CONC 32.9 g/dl (32.0-36.5); MEAN CORPUSCULAR VOLUME 84.5 fl (80.0-96.0); MONO # 0.2 K/mm3 (0.0-0.8); MONO % 5.4 % (0.0-5.0); NEUTROPHILS # 2.5 K/mm3 (1.8-7.7); NEUTROPHILS % 56.7 % (36.0-66.0); PLATELET COUNT, AUTOMATED 259 k/mm3 (150-450); RED CELL DISTRIBUTION WIDTH 14.7 % (11.5-14.5); WHITE BLOOD COUNT 4.4 K/mm3 (4.0-10.0)
[2017-06-30 06:51] LABS: ALBUMIN 3.1 GM/DL (3.2-5.2); ALBUMIN/GLOBULIN RATIO 0.78 (1.00-1.93); ALKALINE PHOSPHATASE 79 U/L (45-117); ALT/SGPT 20 U/L (12-78); ANION GAP 9 MEQ/L (8-16); AST/SGOT 17 U/L (15-37); BILIRUBIN,TOTAL 0.7 MG/DL (0.2-1.0); BLOOD UREA NITROGEN 9 MG/DL (7-18); CALCIUM LEVEL 8.8 MG/DL (8.5-10.1); CARBON DIOXIDE LEVEL 26 MEQ/L (21-32); CHLORIDE LEVEL 107 MEQ/L (98-107); CREATININE FOR GFR 0.75 MG/DL (0.55-1.02); GLOMERULAR FILTRATION RATE > 60.0 (>60); GLUCOSE, FASTING 84 MG/DL (70-105); POTASSIUM SERUM 3.7 MEQ/L (3.5-5.1); SODIUM LEVEL 142 MEQ/L (136-145); TOTAL PROTEIN 7.1 GM/DL (6.4-8.2)
[2017-06-30] MEDS: ENOXAPARIN 40 MG/0.4 ML SYRINGE (J1650) SC SCH (08:37)
[2017-06-30] MEDS: PANTOPRAZOLE 40MG INJ (PROTONIX) (C9113) IV SCH (08:37)
[2017-06-30] MEDS: NS 1,000 ML IV SCH (10:58)
--- NOTE | 2017-06-30 12:03 | IPNPDOC ---
Subjective Date Seen The patient was seen on 06/30/17. Subjective Chief Complaint/HPI The patient is a 22-year-old female admitted with a reason for visit of Acute Pancreatitis. Events since last encounter Pt denies any current abd pain. Denies N/V/D. Denies F/C. Denies SOB, CP. Constitutional: Denies: Chills, Fever Pulmonary: Denies: Dyspnea Cardiovascular: Denies: Chest Pain Gastrointestinal: Denies: Nausea, Vomiting, Abdominal Pain, Diarrhea Objective Physical Examination General Exam: Positive: Alert, No Acute Distress ENT Exam: Positive: Mucous membr. moist/pink Chest Exam: Positive: Clear to auscultation, Normal air movement Heart Exam: Positive: Rate Normal, Normal S1, Normal S2 Abdomen Exam: Positive: Normal bowel sounds, Soft, Negative: Tenderness Extremity Exam: Negative: Edema Assessment /Plan Problems (1) Acute pancreatitis Status: Acute Response to Treatment: Stable Discussed With: Nurse, Patient, Family with Pt Consent Problem Specific Plan: Monitor Clinically, Repeat Labs Problem Text: 3rd episode (previous 04/2017, 09/2015-all mild s amylase elevation)-this one precipitated by large ham/bologna sandwich per patient 06/30 - Lipase up today at 1212. Tolerating diet advance. Consider ERCP. 06/29 ? stenotic CBD-favor outpx ERCP (no unassigned GI coverage until 07/01-then Temitope), given 0 pain-ADAT 06/28 Cont with NPO, IVF, Lipase 769 (1131, 06/10 367 c amylase 53), remains afebrile, recheck TG/IgG4, favor outpx EGD +/- ERCP if - MRCP 05/2017 83 06/28 MRCP P no obvious precipitating meds/no EthOH use 06/29 MRCP: No persistent filling defect in the gallbladder to suggest stone. The common duct is 5.9 mm without filling defect or vessel cutoff. It tapers in the pancreatic head to 3.9 mm reaching the ampulla. No intrahepatic dilatation or other acute finding. 06/28 HIDA: IMPRESSION: Homogeneous tracer distribution throughout the liver with appearance of activity in the gallbladder by 15 minutes and normal biliary to bowel transit by at least 45 minutes from initial injection with good washout of activity from the liver. Normal biliary scan. 06/27 CT AP: IMPRESSION: Minimal peripancreatic fat thickening. Please correlate with lipase value to exclude minimal pancreatitis. 05/30 gb US: IMPRESSION: Unremarkable study. (2) GERD (gastroesophageal reflux disease) Status: Chronic Response to Treatment: Stable Problem Specific Plan: Monitor Clinically Problem Text: Cont with PPI. (3) Morbid obesity Status: Chronic Problem Specific Plan: Monitor Clinically Plan/VTE VTE Prophylaxis Ordered?: Yes Plan Family medicine attending note: Patient seen, examined, and discharged this afternoon. I agree with Phi Nicholas's note above; see my dictated discharge summary from today. (KES) VS, I&O, 24H, Fishbone Vital Signs/I&O Vital Signs Date Time Temp Pulse Resp B/P (MAP) Pulse Ox O2 Delivery O2 Flow Rate FiO2 06/30/17 06:00 97.8 83 18 128/66 (86) 97 Room Air I&O- Last 24 Hours up to 6 AM 06/30/17 06:00 Intake Total 2440 ml Output Total 3600 ml Balance -1160 ml Laboratory Data 24H LABS Laboratory Tests 2 06/30/17 06:15: White Blood Count 4.4, Red Blood Count 4.10, Hemoglobin 11.4L, Hematocrit 34.6L , Mean Corpuscular Volume 84.5, Mean Corpuscular Hemoglobin 27.8, Mean Corpuscular Hemoglobin Concent 32.9, Red Cell Distribution Width 14.7H, Platelet Count 259, Neutrophils (%) (Auto) 56.7, Lymphocytes (%) (Auto) 32.2, Monocytes (%) (Auto) 5.4H, Eosinophils (%) (Auto) 4.2H, Basophils (%) (Auto) 0.4 , Neutrophils # (Auto) 2.5, Lymphocytes # (Auto) 1.5, Monocytes # (Auto) 0.2, Eosinophils # (Auto) 0.2, Basophils # (Auto) 0.0, Large Unclassified Cells % 1.2 , Large Unclassified Cells # 0.1, Anion Gap 9, Glomerular Filtration Rate > 60.0 , Blood Urea Nitrogen 9, Creatinine 0.75, Sodium Level 142, Potassium Level 3.7 , Chloride Level 107, Carbon Dioxide Level 26, Calcium Level 8.8, Aspartate Amino Transf (AST/SGOT) 17, Alanine Aminotransferase (ALT/SGPT) 20, Alkaline Phosphatase 79, Total Bilirubin 0.7#, Total Protein 7.1, Albumin 3.1L, Albumin/ Globulin Ratio 0.78L, Lipase 1212H CBC/BMP Laboratory Tests 06/30/17 06:15 Red Blood Count 4.10, Mean Corpuscular Volume 84.5, Mean Corpuscular Hemoglobin 27.8, Mean Corpuscular Hemoglobin Concent 32.9, Red Cell Distribution Width 14.7 H, Neutrophils (%) (Auto) 56.7, Lymphocytes (%) (Auto) 32.2, Monocytes (%) (Auto) 5.4 H, Eosinophils (%) (Auto) 4.2 H, Basophils (%) (Auto) 0.4, Neutrophils # (Auto) 2.5, Lymphocytes # (Auto) 1.5, Monocytes # (Auto) 0.2, Eosinophils # (Auto) 0.2, Basophils # (Auto) 0.0, Calcium Level 8.8, Aspartate Amino Transf (AST/SGOT) 17, Alanine Aminotransferase (ALT/SGPT) 20, Alkaline Phosphatase 79, Total Bilirubin 0.7 #, Total Protein 7.1, Albumin 3.1 L Phi Nicholas RPA-Lori Jun 30, 2017 12:03 JOSE LEVY MD Jun 30, 2017 13:27
[2017-06-30 14:00] VITALS: BP 132/65
[2017-07-01 10:15] LABS: IgG SERUM (part of Subclasses) 1005 mg/dL (700-1600); IgG Subclass 1 599 mg/dL (248-810); IgG Subclass 2 378 mg/dL (130-555); IgG Subclass 3 30 mg/dL (15-102); IgG Subclass 4 73 mg/dL (2-96)
--- NOTE | 2017-07-01 15:43 | DSES ---
DATE OF ADMISSION: 06/28/2017 DATE OF DISCHARGE: 06/30/2017 PRINCIPAL DIAGNOSIS: Acute pancreatitis. SECONDARY DIAGNOSES: 1. Gastroesophageal reflux disease. 2. Morbid obesity. INVASIVE PROCEDURES: None. CONSULTANTS: None. SUMMARY STATEMENT: This is a 22-year-old woman with a history of recurrent pancreatitis in September 2015 and April 2017 in the past who presented with a third episode of acute pancreatitis after eating a ham and bologna sandwich. Magnetic resonance cholangiopancreatography (MRCP) was performed and showed no persistent filling defect in the gallbladder, no intrahepatic dilatation or other acute findings, and common bile duct without filling defect or vessel cutoff. Hepatobiliary iminodiacetic acid (HIDA) scan was normal as well. Patient was able to tolerate a low-fat diet on day of discharge and was completely asymptomatic on day of discharge. Incidentally, lipase was found to be a bit higher on day of discharge than on the previous day; however, as she had no symptoms and was eager to be discharged home, she was discharged home to be followed up with by gastrointestinal (GI) within the next week, as she may need an endoscopic retrograde cholangiopancreatography (ERCP) as an outpatient. Patient is not compliant with a low-fat diet at home and so was educated and strongly advised to maintain a low-fat diet after discharge prior to her followup appointment with gastroenterology. DISCHARGE PLANS: DISCHARGE MEDICATIONS: - dicyclomine 20 mg by mouth three times a day - hyoscyamine 0.125 mg sublingual three times a day as needed for abdominal pain - levothyroxine 50 mcg daily - omeprazole 40 mg daily FOLLOWUP: With primary care, Danika Dill, within 1 week, and with gastroenterology within 1 week. DIET: Low-fat, low-cholesterol diet. ACTIVITY: As tolerated. CONDITION: Stable. PROGNOSIS: Good. PENDING STUDIES: None. HOSPITAL COURSE: This is a 22-year-old woman with: 1. Recurrent pancreatitis of unknown etiology. There are no obvious precipitating medications. Patient denies alcohol use. MRCP is not suggestive of current gallstone obstruction. Patient had fairly rapid recovery and was able to tolerate a low-fat diet without abdominal pain, nausea, or vomiting on day of discharge. Lipase was found to be initially elevated. This trended down on second day of admission and was slightly up on third day of admission; however, she was asymptomatic. She was discharged home in stable condition. Abdominal/pelvis CT done in the emergency department suggested minimal pancreatitis with minimal peripancreatic fat thickening. 2. Hypothyroidism. Patient was continued on her home levothyroxine. 3. Gastroesophageal reflux disease (GERD). Patient was continued on her home proton pump inhibitor (PPI). 4. Morbid obesity. Patient was counseled to lose weight with low-calorie diet and regular exercise.
== END 2017-06-30 15:58 | disposition home or self-care (01) | DRG 439 ==
LOC: M ED 22:19 → M ED INP 06-28 03:09 → M MSPAV 06-28 04:36
PROVIDERS: ADMIT Hospitalist; ATTEND Family Medicine
DX: K85.90 Acute pancreatitis without necrosis or infection, unspecified (principal); Z68.41 Body mass index [BMI] 40.0-44.9, adult; K86.1 Other chronic pancreatitis; E03.9 Hypothyroidism, unspecified; E66.01 Morbid (severe) obesity due to excess calories; Z88.1 Allergy status to other antibiotic agents; Z79.899 Other long term (current) drug therapy; K21.9 Gastro-esophageal reflux disease without esophagitis

== ENCOUNTER → 2017-07-05 | Outpatient (CLI) | payer MEDICARE, MEDICAID ==
[~2017-07-05] MED LIST changes: +DICY20TA11 PO; +HYOS1TAB SL; +LEVO50TA45 PO; +OMEP40CA2 PO; +REGL10TA6 PO
--- NOTE | 2017-07-05 11:14 | REP ---
HIDA SCAN WITH GALLBLADDER EJECTION FRACTION: Following the intravenous administration of 6.6 millicuries technetium 99m Mebrofenin, multiple images of the right upper quadrant are performed every 5 minutes for a period of 1 hour. The gallbladder is visualized at 15-20 minutes post injection. There is biliary to bowel transit 20 minutes post injection with no scintigraphic evidence of cholecystitis. At the 1-hour du, 8 ounces of Ensure Enlive is ingested and further imaging performed for 1 hour. Gallbladder activity is measured. Gallbladder ejection fraction is 100%. IMPRESSION: Normal gallbladder ejection fraction. Signed by Chip Morrow MD 07/06/2017 08:38 A
== END ==
LOC: M RAD 07:45
PROVIDERS: ATTEND Surgery
DX: R10.11 Right upper quadrant pain (principal)
CPT/HCPCS: 78227; A9537; J2805

== ENCOUNTER → 2017-07-21 | Outpatient (CLI) | payer MEDICARE, MEDICAID ==
[2017-07-23 08:07] LABS: IgG SUBCLASS 4(ONLY) 72 mg/dL (2-96)
[2017-08-23 14:31] LABS: ROUTING SEE SEPARATE REPORT
== END ==
LOC: M LAB 10:20
PROVIDERS: ATTEND Internal Medicine Gastroenterology
DX: K86.1 Other chronic pancreatitis (principal); K85.00 Idiopathic acute pancreatitis without necrosis or infection; K76.0 Fatty (change of) liver, not elsewhere classified

== ENCOUNTER 2017-08-07 06:32 | Emergency (ER) | payer MEDICARE, MEDICAID ==
[~2017-08-07] VITALS: Ht 162.6 cm; Wt 114.0 kg
[~2017-08-07 06:32] MED LIST changes: -REGL10TA6 PO
[2017-08-07] MEDS ORDERED: PROMETHAZINE INJ 25 MG/ML VIAL (J2550) IM ONE (07:30)
[2017-08-07] MEDS ORDERED: REGL10TA6 PO (08:29)
[2017-08-07 08:39] VITALS: BP 117/64
== END 2017-08-07 08:41 | disposition home or self-care (01) ==
LOC: M ED 06:32
DX: K58.9 Irritable bowel syndrome, unspecified (principal); E66.9 Obesity, unspecified; Z87.19 Personal history of other diseases of the digestive system; Z79.899 Other long term (current) drug therapy; Z88.1 Allergy status to other antibiotic agents

== ENCOUNTER 2017-08-21 21:06 | Emergency (ER) | payer MEDICARE, MEDICAID ==
[~2017-08-21] VITALS: Ht 162.6 cm; Wt 113.6 kg
[~2017-08-21 21:06] MED LIST changes: +REGL10TA6 PO
[2017-08-21] MEDS ORDERED: NS 1,000 ML IV ONE (22:15)
[2017-08-21] MEDS ORDERED: PROMETHAZINE INJ 25 MG/ML VIAL (J2550) IV ONE (22:30)
[2017-08-21 22:43] LABS: BASO % 0.6 % (0.0-1.0); EOS # 0.2 K/mm3 (0.0-0.50); EOS % 2.4 % (0.0-3.0); LARGE UNSTAINED CELL # 0.2 K/mm3 (0.0-0.4); LARGE UNSTAINED CELL % 2.3 % (0.0-4.0); LYMPH # 2.1 K/mm3 (1.5-6.5); LYMPH % 32.9 % (24.0-44.0); MEAN CORPUSCULAR HEMOGLOBIN 28.7 pg (27.0-33.0); MEAN CORPUSCULAR HGB CONC 34.6 g/dl (32.0-36.5); MEAN CORPUSCULAR VOLUME 83.2 fl (80.0-96.0); MONO # 0.3 K/mm3 (0.0-0.8); MONO % 3.9 % (0.0-5.0); NEUTROPHILS # 3.7 K/mm3 (1.8-7.7); PLATELET COUNT, AUTOMATED 302 k/mm3 (150-450); RED CELL DISTRIBUTION WIDTH 13.9 % (11.5-14.5); WHITE BLOOD COUNT 6.4 K/mm3 (4.0-10.0)
[2017-08-21 22:56] LABS: ALBUMIN 3.6 GM/DL (3.2-5.2); ALKALINE PHOSPHATASE 94 U/L (45-117); ALT/SGPT 26 U/L (12-78); AMYLASE 70 U/L (25-115); ANION GAP 8 MEQ/L (8-16); AST/SGOT 17 U/L (15-37); BILIRUBIN,DIRECT < 0.1 MG/DL (0.0-0.2); BILIRUBIN,TOTAL 0.4 MG/DL (0.2-1.0); BLOOD UREA NITROGEN 15 MG/DL (7-18); CALCIUM LEVEL 8.8 MG/DL (8.5-10.1); CARBON DIOXIDE LEVEL 27 MEQ/L (21-32); CHLORIDE LEVEL 105 MEQ/L (98-107); CREATININE FOR GFR 0.89 MG/DL (0.55-1.02); GLOMERULAR FILTRATION RATE > 60.0 (>60); GLUCOSE, FASTING 81 MG/DL (70-105); POTASSIUM SERUM 3.9 MEQ/L (3.5-5.1); SODIUM LEVEL 140 MEQ/L (136-145); TOTAL PROTEIN 8.1 GM/DL (6.4-8.2)
[2017-08-21 23:20] VITALS: BP 144/65
== END 2017-08-21 23:44 | disposition home or self-care (01) ==
LOC: M ED 21:06
DX: R74.8 Abnormal levels of other serum enzymes (principal); R10.9 Unspecified abdominal pain

== ENCOUNTER 2017-10-24 22:37 | Emergency (ER) | payer MEDICARE, MEDICAID ==
[~2017-10-24] VITALS: Ht 162.6 cm; Wt 100.0 kg
[2017-10-24] MEDS ORDERED: AQUACHW PO (22:53)
[2017-10-25 00:52] LABS: BASO % 0.5 % (0.0-1.0); EOS # 0.2 10^3/uL (0.0-0.50); EOS % 2.9 % (0.0-3.0); IMMATURE GRANULOCYTE % 0.3 % (0-0); LYMPH % 40.5 % (24.0-44.0); MEAN CORPUSCULAR HEMOGLOBIN 26.9 pg (27.0-33.0); MEAN CORPUSCULAR HGB CONC 32.5 g/dl (32.0-36.5); MEAN CORPUSCULAR VOLUME 82.8 fl (80.0-96.0); MONO # 0.6 10^3/uL (0.0-0.8); MONO % 8.3 % (0.0-5.0); NEUTROPHILS # 3.5 10^3/uL (1.8-7.7); NEUTROPHILS % 47.5 % (36.0-66.0); PLATELET COUNT, AUTOMATED 354 10^3/uL (150-450); RED CELL DISTRIBUTION WIDTH 13.5 % (11.5-14.5); WHITE BLOOD COUNT 7.5 10^3/uL (4.0-10.0)
[2017-10-25] MEDS ORDERED: KETOROLAC 30 MG/ML VIAL (J1885) IV ONE (01:15)
[2017-10-25] MEDS ORDERED: ONDANSETRON 4MG/2ML VIAL (J2405) IV ONE (01:15)
[2017-10-25] MEDS ORDERED: DICYCLOMINE 10 MG CAP PO ONE (01:15)
[2017-10-25 01:20] LABS: ALBUMIN 3.4 GM/DL (3.2-5.2); ALBUMIN/GLOBULIN RATIO 0.76 (1.00-1.93); ALKALINE PHOSPHATASE 95 U/L (45-117); ALT/SGPT 25 U/L (12-78); ANION GAP 7 MEQ/L (8-16); AST/SGOT 14 U/L (7-37); BILIRUBIN,DIRECT 0.1 MG/DL (0.0-0.2); BILIRUBIN,TOTAL 0.5 MG/DL (0.2-1.0); BLOOD UREA NITROGEN 9 MG/DL (7-18); CALCIUM LEVEL 8.9 MG/DL (8.5-10.1); CARBON DIOXIDE LEVEL 28 MEQ/L (21-32); CHLORIDE LEVEL 103 MEQ/L (98-107); CREATININE FOR GFR 0.75 MG/DL (0.55-1.02); GLOMERULAR FILTRATION RATE > 60.0 (>60); GLUCOSE, FASTING 74 MG/DL (70-105); POTASSIUM SERUM 3.8 MEQ/L (3.5-5.1); SODIUM LEVEL 138 MEQ/L (136-145); TOTAL PROTEIN 7.9 GM/DL (6.4-8.2)
[2017-10-25 01:24] LABS: CONTROL LINE HCG INT CTR LINE PRESENT
[2017-10-25 04:34] VITALS: BP 127/61
[2017-10-25] MEDS ORDERED: ZOFR4TAB3 PO (05:11)
--- NOTE | 2017-10-25 08:29 | REPUSA ---
CLINICAL HISTORY: RUQ pain. TECHNIQUE: Realtime sonographic images were obtained in multiple projections. COMMENTS: The visualized liver is of uniform echo texture without evidence of mass or defect. There is no intra or extrahepatic biliary ductal dilatation. The common bile duct measures 3.4 mm. The gallbladder is physiologically distended without evidence of calculi. The gallbladder wall is not thickened and ther e is no pericholecystic fluid. Negative sonographic Jay is seen. The visualized portions of the pancreas are unremarkable. Right kidney measures 10.5x5.6x5.8 cm. IMPRESSION: No evidence of cholelithiasis or cholecystitis. Thank you for your kind referral of this patient.
== END 2017-10-25 05:39 | disposition home or self-care (01) ==
LOC: M ED 22:37
DX: R10.11 Right upper quadrant pain (principal); R11.0 Nausea; Z87.19 Personal history of other diseases of the digestive system; Z79.899 Other long term (current) drug therapy; Z88.1 Allergy status to other antibiotic agents
CPT/HCPCS: 76705; 80048; 80076; 83690; 84703; 85025; 96374; 96375; 99284; J1885; J2405

== ENCOUNTER 2017-11-12 19:32 | Emergency (ER) | payer MEDICARE, MEDICAID ==
[~2017-11-12] VITALS: Ht 157.5 cm; Wt 116.2 kg
[~2017-11-12 19:32] MED LIST changes: +AQUACHW PO; +ZOFR4TAB3 PO
[2017-11-12] MEDS ORDERED: IBUP80TA (19:40)
[2017-11-12] MEDS ORDERED: NS 1,000 ML IV ONE (20:45)
[2017-11-12] MEDS ORDERED: ONDANSETRON 4MG/2ML VIAL (J2405) IV ONE (20:45)
[2017-11-12] MEDS ORDERED: GASTROGRAFIN SOLUTION 30ML PO ONE (21:15)
[2017-11-12 21:25] LABS: BASO # 0.1 10^3/uL (0.0-0.2); BASO % 0.7 % (0.0-1.0); EOS # 0.3 10^3/uL (0.0-0.50); EOS % 3.6 % (0.0-3.0); IMMATURE GRANULOCYTE % 0.1 % (0-0); LYMPH # 3.1 10^3/uL (1.5-6.5); LYMPH % 44.2 % (24.0-44.0); MEAN CORPUSCULAR HEMOGLOBIN 26.1 pg (27.0-33.0); MEAN CORPUSCULAR HGB CONC 31.4 g/dl (32.0-36.5); MONO # 0.7 10^3/uL (0.0-0.8); MONO % 10.3 % (0.0-5.0); NEUTROPHILS # 2.9 10^3/uL (1.8-7.7); NEUTROPHILS % 41.1 % (36.0-66.0); PLATELET COUNT, AUTOMATED 319 10^3/uL (150-450)
[2017-11-12 21:28] LABS: CONTROL LINE UCG INT CTR LINE PRESENT
[2017-11-12] MEDS ORDERED: GASTROGRAFIN SOLUTION 30ML (Q9963) PO ONE (21:45)
[2017-11-12] MEDS ORDERED: ISOVUE-370 76% 100ML VIAL (Q9967) As Ordered ONE (22:47)
[2017-11-12 23:01] LABS: ALBUMIN 3.2 GM/DL (3.2-5.2); ALBUMIN/GLOBULIN RATIO 0.89 (1.00-1.93); ALKALINE PHOSPHATASE 95 U/L (45-117); ALT/SGPT 51 U/L (12-78); AMYLASE 52 U/L (25-115); ANION GAP 7 MEQ/L (8-16); AST/SGOT 39 U/L (7-37); BILIRUBIN,DIRECT 0.1 MG/DL (0.0-0.2); BILIRUBIN,TOTAL 0.4 MG/DL (0.2-1.0); BLOOD UREA NITROGEN 12 MG/DL (7-18); CALCIUM LEVEL 8.5 MG/DL (8.5-10.1); CARBON DIOXIDE LEVEL 27 MEQ/L (21-32); CHLORIDE LEVEL 106 MEQ/L (98-107); CREATININE FOR GFR 0.78 MG/DL (0.55-1.02); GLOMERULAR FILTRATION RATE > 60.0 (>60); GLUCOSE, FASTING 102 MG/DL (70-105); SODIUM LEVEL 140 MEQ/L (136-145); TOTAL PROTEIN 6.8 GM/DL (6.4-8.2)
--- NOTE | 2017-11-12 23:20 | REPUSA ---
CT of the abdomen and pelvis with contrast Clinical statement: Pain. Technique: Multiple axial CT images were obtained from the base of the lungs through the floor of the pelvis utilizing 5 mm axial slices after administration of oral and nonionic intravenous contrast. C oronal and sagittal reconstructions were also obtained. Comparison: 06/28/2017. Findings: Chest: The visualized lung bases are clear. Abdomen: The liver, spleen, pancreas, kidneys, gallbladder, and adrenal glands are unremarkable. The aorta is within normal limits. There is no evidence of abdominal lymphadenopathy or ascites. Pelvis: The bowel is unremarkable, with no obstructive or inflammatory changes. The appendix is ailyn l. The urinary bladder is within normal limits. The other pelvic structures appear grossly intact. Th ere is no evidence of pelvic lymphadenopathy or ascites. Bones: There are no suspicious osseous abnormalities seen. Impression: Unremarkable CT examination of the abdomen and pelvis. No focal abnormality to explain th e patient's pain.
[2017-11-12 23:41] VITALS: BP 127/65
== END 2017-11-13 00:07 | disposition home or self-care (01) ==
LOC: M ED 19:32
DX: R10.31 Right lower quadrant pain (principal); R11.0 Nausea; E03.9 Hypothyroidism, unspecified; Z87.440 Personal history of urinary (tract) infections; Z87.19 Personal history of other diseases of the digestive system; Z79.899 Other long term (current) drug therapy; Z88.1 Allergy status to other antibiotic agents
CPT/HCPCS: 36415; 74177; 80048; 80076; 81001; 82150; 83690; 84703; 85025; 87086; 96374; 99284; J2405; Q9963; Q9967

== ENCOUNTER 2017-11-19 12:28 | Emergency (ER) | payer MEDICARE, MEDICAID ==
[2017-11-19 15:11] LABS: KETONE, URINE AUTO RFX NEGATIVE (NEGATIVE); MUCUS, URINE RFX SMALL (NEGATIVE); NITRITE, URINE AUTO RFX NEGATIVE (NEGATIVE); RBC, URINE AUTO RFX 5 /HPF (0-3); SPECIFIC GRAVITY UR AUTO RFX 1.027 (1.002-1.035); SQUAM EPITHELIAL CELL UR AURFX 5 /HPF (0-6); WBC, URINE AUTO RFX 5 /HPF (0-3)
[2017-11-19] MEDS: KETOROLAC 30 MG/ML VIAL (J1885) IV (15:11)
[2017-11-19] MEDS: ONDANSETRON 4MG/2ML VIAL (J2405) IV (15:11)
[2017-11-19 15:17] LABS: BASO % 0.5 % (0.0-1.0); EOS # 0.2 10^3/uL (0.0-0.50); EOS % 3.1 % (0.0-3.0); IMMATURE GRANULOCYTE % 0.3 % (0-0); LYMPH # 2.1 10^3/uL (1.5-6.5); LYMPH % 34.5 % (24.0-44.0); MEAN CORPUSCULAR HEMOGLOBIN 26.6 pg (27.0-33.0); MEAN CORPUSCULAR HGB CONC 31.9 g/dl (32.0-36.5); MEAN CORPUSCULAR VOLUME 83.1 fl (80.0-96.0); MONO # 0.5 10^3/uL (0.0-0.8); MONO % 7.6 % (0.0-5.0); NEUTROPHILS # 3.4 10^3/uL (1.8-7.7); PLATELET COUNT, AUTOMATED 319 10^3/uL (150-450); RED CELL DISTRIBUTION WIDTH 14.1 % (11.5-14.5); WHITE BLOOD COUNT 6.2 10^3/uL (4.0-10.0)
[2017-11-19 15:43] LABS: ALBUMIN 3.6 GM/DL (3.2-5.2); ALBUMIN/GLOBULIN RATIO 0.88 (1.00-1.93); ALKALINE PHOSPHATASE 85 U/L (45-117); ALT/SGPT 35 U/L (12-78); ANION GAP 8 MEQ/L (8-16); AST/SGOT 14 U/L (7-37); BILIRUBIN,DIRECT 0.1 MG/DL (0.0-0.2); BILIRUBIN,TOTAL 0.5 MG/DL (0.2-1.0); BLOOD UREA NITROGEN 12 MG/DL (7-18); CALCIUM LEVEL 8.7 MG/DL (8.5-10.1); CARBON DIOXIDE LEVEL 27 MEQ/L (21-32); CHLORIDE LEVEL 106 MEQ/L (98-107); CREATININE FOR GFR 0.76 MG/DL (0.55-1.02); GLOMERULAR FILTRATION RATE > 60.0 (>60); GLUCOSE, FASTING 81 MG/DL (70-105); POTASSIUM SERUM 3.8 MEQ/L (3.5-5.1); SODIUM LEVEL 141 MEQ/L (136-145); TOTAL PROTEIN 7.7 GM/DL (6.4-8.2)
[2017-11-19 15:44] LABS: LEUKOCYTE ESTERASE UR AUTO RFX 1+ (NEGATIVE)
== END 2017-11-19 16:54 | disposition home or self-care (01) ==
LOC: M ED 12:28
DX: R10.31 Right lower quadrant pain (principal); J45.909 Unspecified asthma, uncomplicated; E03.9 Hypothyroidism, unspecified; F81.9 Developmental disorder of scholastic skills, unspecified; Z79.899 Other long term (current) drug therapy; Z88.1 Allergy status to other antibiotic agents
CPT/HCPCS: J2405

== ENCOUNTER 2018-05-18 21:02 | Emergency (ER) | payer MEDICARE, MEDICAID ==
[2018-05-18] MEDS: ONDANSETRON 4MG/2ML VIAL (J2405) IV (21:55)
[2018-05-18] MEDS: KETOROLAC 30 MG/ML VIAL (J1885) IV (21:55)
[2018-05-18 22:02] LABS: KETONE, URINE AUTO RFX NEGATIVE (NEGATIVE); LEUKOCYTE ESTERASE UR AUTO RFX NEGATIVE (NEGATIVE); NITRITE, URINE AUTO RFX NEGATIVE (NEGATIVE); RBC, URINE AUTO RFX 0 /HPF (0-3); SPECIFIC GRAVITY UR AUTO RFX 1.019 (1.002-1.035); SQUAM EPITHELIAL CELL UR AURFX 5 /HPF (0-6); WBC, URINE AUTO RFX 2 /HPF (0-3)
[2018-05-18 22:05] LABS: BASO % 0.4 % (0.0-1.0); EOS # 0.2 10^3/uL (0.0-0.50); EOS % 3.4 % (0.0-3.0); HEMATOCRIT 33.4 % (36.0-47.0); HEMOGLOBIN 10.1 g/dl (12.0-15.5); IMMATURE GRANULOCYTE % 0.3 % (0-3.0); LYMPH # 2.6 10^3/uL (1.5-6.5); LYMPH % 36.6 % (24.0-44.0); MEAN CORPUSCULAR HEMOGLOBIN 23.3 pg (27.0-33.0); MEAN CORPUSCULAR HGB CONC 30.2 g/dl (32.0-36.5); MONO # 0.5 10^3/uL (0.0-0.8); MONO % 7.5 % (0.0-5.0); NEUTROPHILS # 3.6 10^3/uL (1.8-7.7); NEUTROPHILS % 51.8 % (36.0-66.0); PLATELET COUNT, AUTOMATED 343 10^3/uL (150-450); RED BLOOD COUNT 4.34 10^6/uL (4.00-5.40); RED CELL DISTRIBUTION WIDTH 16.6 % (11.5-14.5)
[2018-05-18 22:21] LABS: CONTROL LINE HCG INT CTR LINE PRESENT; HCG, SERUM QUALITATIVE NEGATIVE (NEGATIVE)
[2018-05-18 22:31] LABS: ALBUMIN 3.3 GM/DL (3.2-5.2); ALBUMIN/GLOBULIN RATIO 0.73 (1.00-1.93); ALKALINE PHOSPHATASE 93 U/L (45-117); ALT/SGPT 23 U/L (12-78); AMYLASE 76 U/L (25-115); ANION GAP 8 MEQ/L (8-16); AST/SGOT 13 U/L (7-37); BILIRUBIN,DIRECT < 0.1 MG/DL (0.0-0.2); BILIRUBIN,TOTAL 0.3 MG/DL (0.2-1.0); BLOOD UREA NITROGEN 10 MG/DL (7-18); CALCIUM LEVEL 8.5 MG/DL (8.5-10.1); CARBON DIOXIDE LEVEL 27 MEQ/L (21-32); CHLORIDE LEVEL 106 MEQ/L (98-107); CREATININE FOR GFR 0.99 MG/DL (0.55-1.30); GLOMERULAR FILTRATION RATE > 60.0 (>60); GLUCOSE, FASTING 91 MG/DL (70-100); LIPASE 608 U/L (73-393); POTASSIUM SERUM 3.7 MEQ/L (3.5-5.1); SODIUM LEVEL 141 MEQ/L (136-145); TOTAL PROTEIN 7.8 GM/DL (6.4-8.2)
[2018-05-18] MEDS ORDERED: ISOVUE-370 76% 100ML VIAL (Q9967) As Ordered (22:51)
== END 2018-05-18 23:50 | disposition home or self-care (01) ==
LOC: M ED 21:02
DX: K52.9 Noninfective gastroenteritis and colitis, unspecified (principal); R74.8 Abnormal levels of other serum enzymes; J45.909 Unspecified asthma, uncomplicated; K21.9 Gastro-esophageal reflux disease without esophagitis; Z87.19 Personal history of other diseases of the digestive system; Z87.42 Personal history of other diseases of the female genital tract; E07.9 Disorder of thyroid, unspecified; Z88.1 Allergy status to other antibiotic agents; Z79.899 Other long term (current) drug therapy
CPT/HCPCS: J2405

== ENCOUNTER → 2018-06-29 | Outpatient (CLI) | payer MEDICARE, MEDICAID ==
[2018-06-29 11:26] LABS: BASO % 0.6 % (0.0-1.0); EOS # 0.3 10^3/uL (0.0-0.50); EOS % 5.1 % (0.0-3.0); HEMATOCRIT 33.7 % (36.0-47.0); HEMOGLOBIN 10.1 g/dl (12.0-15.5); IMMATURE GRANULOCYTE % 0.4 % (0-3.0); LYMPH # 2.3 10^3/uL (1.5-6.5); LYMPH % 44.3 % (24.0-44.0); MEAN CORPUSCULAR HEMOGLOBIN 23.4 pg (27.0-33.0); MEAN CORPUSCULAR VOLUME 78.2 fl (80.0-96.0); MONO # 0.4 10^3/uL (0.0-0.8); MONO % 7.7 % (0.0-5.0); NEUTROPHILS # 2.1 10^3/uL (1.8-7.7); NEUTROPHILS % 41.9 % (36.0-66.0); PLATELET COUNT, AUTOMATED 368 10^3/uL (150-450); RED BLOOD COUNT 4.31 10^6/uL (4.00-5.40); RED CELL DISTRIBUTION WIDTH 16.5 % (11.5-14.5); WHITE BLOOD COUNT 5.1 10^3/uL (4.0-10.0)
[2018-06-29 11:58] LABS: ALBUMIN 3.4 GM/DL (3.2-5.2); ALBUMIN/GLOBULIN RATIO 0.89 (1.00-1.93); ALKALINE PHOSPHATASE 82 U/L (45-117); ALT/SGPT 24 U/L (12-78); AMYLASE 53 U/L (25-115); AST/SGOT 13 U/L (7-37); BILIRUBIN,DIRECT 0.1 MG/DL (0.0-0.2); BILIRUBIN,TOTAL 0.3 MG/DL (0.2-1.0); FERRITIN 5 NG/ML (8-252); IRON (FE) 20 UG/DL (50-170); LIPASE 270 U/L (73-393); PERCENT SATURATION 4.2 % (13.2-45.0); TOTAL IRON BINDING CAPACITY 477 UG/DL (250-450); TOTAL PROTEIN 7.2 GM/DL (6.4-8.2)
== END ==
LOC: M LAB 10:48
DX: R10.13 Epigastric pain (principal)
CPT/HCPCS: 82150

== ENCOUNTER → 2018-06-30 | Outpatient (REF) | payer MEDICARE, MEDICAID ==
[2018-07-13 00:06] LABS: CALPROTECTIN STOOL 165 ug/g (0-120); O+P EXAM Final report (.)
[2018-07-13 00:06] LABS: PANCREATIC ELASTASE STOOL >500 (>200)
== END ==
LOC: M LAB REF 19:01
DX: R10.13 Epigastric pain (principal)
CPT/HCPCS: 87177

== ENCOUNTER 2018-07-20 21:04 | Emergency (ER) | payer MEDICARE, MEDICAID ==
[2018-07-20 23:38] LABS: BASO % 0.2 % (0.0-1.0); EOS # 0.1 10^3/uL (0.0-0.50); EOS % 0.7 % (0.0-3.0); HEMATOCRIT 35.5 % (36.0-47.0); HEMOGLOBIN 10.9 g/dl (12.0-15.5); IMMATURE GRANULOCYTE % 0.6 % (0-3.0); LYMPH # 0.6 10^3/uL (1.5-6.5); LYMPH % 4.8 % (24.0-44.0); MEAN CORPUSCULAR HEMOGLOBIN 23.7 pg (27.0-33.0); MEAN CORPUSCULAR HGB CONC 30.7 g/dl (32.0-36.5); MEAN CORPUSCULAR VOLUME 77.2 fl (80.0-96.0); MONO # 0.5 10^3/uL (0.0-0.8); MONO % 3.6 % (0.0-5.0); NEUTROPHILS # 11.4 10^3/uL (1.8-7.7); NEUTROPHILS % 90.1 % (36.0-66.0); PLATELET COUNT, AUTOMATED 355 10^3/uL (150-450); RED CELL DISTRIBUTION WIDTH 16.4 % (11.5-14.5); WHITE BLOOD COUNT 12.6 10^3/uL (4.0-10.0)
[2018-07-20 23:41] LABS: KETONE, URINE AUTO RFX NEGATIVE (NEGATIVE); LEUKOCYTE ESTERASE UR AUTO RFX NEGATIVE (NEGATIVE); NITRITE, URINE AUTO RFX NEGATIVE (NEGATIVE); RBC, URINE AUTO RFX 16 /HPF (0-3); SPECIFIC GRAVITY UR AUTO RFX 1.012 (1.002-1.035); SQUAM EPITHELIAL CELL UR AURFX 0 /HPF (0-6); WBC, URINE AUTO RFX 3 /HPF (0-3)
[2018-07-21 00:12] LABS: ANION GAP 11 MEQ/L (8-16); BLOOD UREA NITROGEN 12 MG/DL (7-18); CARBON DIOXIDE LEVEL 23 MEQ/L (21-32); CHLORIDE LEVEL 107 MEQ/L (98-107); FREE T4 0.91 NG/DL (0.76-1.46); GLOMERULAR FILTRATION RATE > 60.0 (>60); GLUCOSE, FASTING 106 MG/DL (70-100); MAGNESIUM LEVEL 1.8 MG/DL (1.8-2.4); POTASSIUM SERUM 4.2 MEQ/L (3.5-5.1); SODIUM LEVEL 141 MEQ/L (136-145)
== END 2018-07-21 00:23 | disposition home or self-care (01) ==
LOC: M ED 07-21 00:23
DX: D64.9 Anemia, unspecified (principal); R31.9 Hematuria, unspecified; J45.909 Unspecified asthma, uncomplicated; K21.9 Gastro-esophageal reflux disease without esophagitis; E03.9 Hypothyroidism, unspecified; N83.209 Unspecified ovarian cyst, unspecified side; Z87.19 Personal history of other diseases of the digestive system; Z79.899 Other long term (current) drug therapy; Z88.1 Allergy status to other antibiotic agents
CPT/HCPCS: 93005

== ENCOUNTER → 2018-07-20 | Outpatient (REF) | payer MEDICARE, MEDICAID ==
[2018-07-20 20:10] LABS: APPEARANCE, URINE HAZY (CLEAR); BACTERIA, URINE AUTO 2+ (NEGATIVE); BILIRUBIN, URINE AUTO NEGATIVE (NEGATIVE); BLOOD, URINE BLOOD 3+ (NEGATIVE); COLOR, URINE YELLOW (YELLOW); GLUCOSE, URINE (UA) AUTO NEGATIVE (NEGATIVE); KETONE, URINE AUTO NEGATIVE (NEGATIVE); LEUKOCYTE ESTERASE, URINE AUTO 1+ (NEGATIVE); MUCUS, URINE SMALL (NEGATIVE); NITRITE, URINE AUTO NEGATIVE (NEGATIVE); PROTEIN, URINE AUTO NEGATIVE (NEGATIVE); RBC, URINE AUTO 67 /HPF (0-3); SQUAMOUS EPITHELIAL CELL UR AU 5 /HPF (0-6); UROBILINOGEN, URINE AUTO 0.2 mg/dL (0.0-2.0); WBC, URINE AUTO 9 /HPF (0-3)
== END ==
LOC: M SFHCADAM 13:55
DX: R35.0 Frequency of micturition (principal)
CPT/HCPCS: 81001

== ENCOUNTER 2018-07-23 15:04 | Emergency (ER) | payer MEDICARE, MEDICAID ==
[2018-07-23] MEDS: ACETAMINOPHEN 325 MG TAB PO (15:46)
[2018-07-23 16:00] LABS: BASO % 0.2 % (0.0-1.0); EOS # 0.6 10^3/uL (0.0-0.50); EOS % 7.2 % (0.0-3.0); HEMATOCRIT 33.6 % (36.0-47.0); HEMOGLOBIN 10.7 g/dl (12.0-15.5); IMMATURE GRANULOCYTE % 0.2 % (0-3.0); LYMPH % 12.3 % (24.0-44.0); MEAN CORPUSCULAR HEMOGLOBIN 24.1 pg (27.0-33.0); MEAN CORPUSCULAR HGB CONC 31.8 g/dl (32.0-36.5); MEAN CORPUSCULAR VOLUME 75.7 fl (80.0-96.0); MONO # 0.3 10^3/uL (0.0-0.8); MONO % 3.8 % (0.0-5.0); NEUTROPHILS # 6.3 10^3/uL (1.8-7.7); NEUTROPHILS % 76.3 % (36.0-66.0); PLATELET COUNT, AUTOMATED 375 10^3/uL (150-450); RED BLOOD COUNT 4.44 10^6/uL (4.00-5.40); RED CELL DISTRIBUTION WIDTH 16.5 % (11.5-14.5); WHITE BLOOD COUNT 8.2 10^3/uL (4.0-10.0)
[2018-07-23 16:14] LABS: ANION GAP 9 MEQ/L (8-16); BLOOD UREA NITROGEN 12 MG/DL (7-18); CALCIUM LEVEL 9.3 MG/DL (8.5-10.1); CARBON DIOXIDE LEVEL 25 MEQ/L (21-32); CHLORIDE LEVEL 105 MEQ/L (98-107); CREATININE FOR GFR 0.84 MG/DL (0.55-1.30); GLOMERULAR FILTRATION RATE > 60.0 (>60); GLUCOSE, FASTING 101 MG/DL (70-100); POTASSIUM SERUM 4.1 MEQ/L (3.5-5.1); SODIUM LEVEL 139 MEQ/L (136-145)
== END 2018-07-23 17:14 | disposition home or self-care (01) ==
LOC: M ED 15:04
DX: N94.6 Dysmenorrhea, unspecified (principal); N92.0 Excessive and frequent menstruation with regular cycle; Z87.42 Personal history of other diseases of the female genital tract; K21.9 Gastro-esophageal reflux disease without esophagitis; D64.9 Anemia, unspecified; G31.84 Mild cognitive impairment of uncertain or unknown etiology; E03.9 Hypothyroidism, unspecified; Z87.19 Personal history of other diseases of the digestive system; Z88.1 Allergy status to other antibiotic agents; Z79.899 Other long term (current) drug therapy
CPT/HCPCS: 76856

== ENCOUNTER 2018-07-26 10:38 | Day surgery (SDC) | payer MEDICARE, MEDICAID ==
[2018-07-26] MEDS: NS 1,000 ML IV (11:07)
[2018-07-26] MEDS ORDERED: fentaNYL 100 MCG/2 ML INJECTION (J3010) As Ordered (11:23)
[2018-07-26] MEDS ORDERED: PROPOFOL 200 MG/20 ML VIAL As Ordered ×2 (12:30)
[2018-07-26] MEDS ORDERED: LIDOCAINE 2% INJ 100 MG/5 ML SDV (FOR ANES.) As Ordered (12:32)
== END 2018-07-26 13:45 | disposition home or self-care (01) ==
LOC: M OPP 10:38
DX: R93.3 Abnormal findings on diagnostic imaging of other parts of digestive tract (principal); D50.9 Iron deficiency anemia, unspecified; B96.81 Helicobacter pylori [H. pylori] as the cause of diseases classified elsewhere; R00.8 Other abnormalities of heart beat; E03.9 Hypothyroidism, unspecified; K21.9 Gastro-esophageal reflux disease without esophagitis; R12 Heartburn; R06.02 Shortness of breath; J45.909 Unspecified asthma, uncomplicated; R31.9 Hematuria, unspecified; Z88.1 Allergy status to other antibiotic agents; Z79.899 Other long term (current) drug therapy; Z80.0 Family history of malignant neoplasm of digestive organs
CPT/HCPCS: 45380

== ENCOUNTER → 2018-09-12 | Outpatient (REF) | payer MEDICARE, MEDICAID ==
[2018-09-14 00:12] LABS: H PYLORI STOOL ANTIGEN Positive (Negative)
== END ==
LOC: M LAB REF 11:34
DX: B96.81 Helicobacter pylori [H. pylori] as the cause of diseases classified elsewhere (principal)
CPT/HCPCS: 87338

== ENCOUNTER 2018-10-02 20:16 | Emergency (ER) | payer MEDICARE, MEDICAID ==
[2018-10-02 20:56] LABS: APPEARANCE, URINE CLEAR (CLEAR); BACTERIA, URINE AUTO NEGATIVE (NEGATIVE); BILIRUBIN, URINE AUTO NEGATIVE (NEGATIVE); BLOOD, URINE BLOOD NEGATIVE (NEGATIVE); COLOR, URINE YELLOW (YELLOW); GLUCOSE, URINE (UA) AUTO NEGATIVE (NEGATIVE); KETONE, URINE AUTO TRACE mg/dL (NEGATIVE); LEUKOCYTE ESTERASE, URINE AUTO NEGATIVE (NEGATIVE); MUCUS, URINE SMALL (NEGATIVE); NITRITE, URINE AUTO NEGATIVE (NEGATIVE); PROTEIN, URINE AUTO 1+ mg/dL (NEGATIVE); RBC, URINE AUTO 2 /HPF (0-3); SPECIFIC GRAVITY URINE AUTO 1.024 (1.002-1.035); SQUAMOUS EPITHELIAL CELL UR AU 1 /HPF (0-6); TRANSITIONAL EPITHELIAL AUTO <1 /HPF; UROBILINOGEN, URINE AUTO 0.2 mg/dL (0.0-2.0); WBC, URINE AUTO 0 /HPF (0-3)
[2018-10-02] MEDS: metroNIDAZOLE (FLAGYL) 500 MG TAB PO (23:30)
== END 2018-10-02 23:42 | disposition home or self-care (01) ==
LOC: M ED 20:16
DX: N76.0 Acute vaginitis (principal); J45.909 Unspecified asthma, uncomplicated; K21.9 Gastro-esophageal reflux disease without esophagitis; E03.9 Hypothyroidism, unspecified; F79 Unspecified intellectual disabilities; Z87.42 Personal history of other diseases of the female genital tract; Z87.19 Personal history of other diseases of the digestive system; Z88.1 Allergy status to other antibiotic agents; Z79.899 Other long term (current) drug therapy
CPT/HCPCS: 76856

== ENCOUNTER 2018-10-11 10:13 | Emergency (ER) | payer MEDICARE, MEDICAID ==
[2018-10-11] MEDS: NS 1,000 ML IV (11:02)
[2018-10-11 11:36] LABS: KETONE, URINE AUTO RFX TRACE mg/dL (NEGATIVE); MUCUS, URINE RFX SMALL (NEGATIVE); NITRITE, URINE AUTO RFX NEGATIVE (NEGATIVE); RBC, URINE AUTO RFX 1 /HPF (0-3); SPECIFIC GRAVITY UR AUTO RFX 1.024 (1.002-1.035); SQUAM EPITHELIAL CELL UR AURFX 11 /HPF (0-6); WBC, URINE AUTO RFX 1 /HPF (0-3)
[2018-10-11 11:38] LABS: BASO # 0.1 10^3/uL (0.0-0.2); BASO % 0.8 % (0.0-1.0); EOS # 0.3 10^3/uL (0.0-0.50); EOS % 4.7 % (0.0-3.0); HEMATOCRIT 34.9 % (36.0-47.0); HEMOGLOBIN 10.5 g/dl (12.0-15.5); IMMATURE GRANULOCYTE % 0.2 % (0-3.0); LYMPH # 2.2 10^3/uL (1.5-6.5); LYMPH % 36.4 % (24.0-44.0); MEAN CORPUSCULAR HEMOGLOBIN 23.4 pg (27.0-33.0); MEAN CORPUSCULAR HGB CONC 30.1 g/dl (32.0-36.5); MEAN CORPUSCULAR VOLUME 77.7 fl (80.0-96.0); MONO # 0.6 10^3/uL (0.0-0.8); MONO % 9.8 % (0.0-5.0); NEUTROPHILS % 48.1 % (36.0-66.0); PLATELET COUNT, AUTOMATED 391 10^3/uL (150-450); RED BLOOD COUNT 4.49 10^6/uL (4.00-5.40); RED CELL DISTRIBUTION WIDTH 16.8 % (11.5-14.5); WHITE BLOOD COUNT 6.1 10^3/uL (4.0-10.0)
[2018-10-11 11:41] LABS: ALBUMIN 3.3 GM/DL (3.2-5.2); ALBUMIN/GLOBULIN RATIO 0.83 (1.00-1.93); ALKALINE PHOSPHATASE 72 U/L (45-117); ALT/SGPT 41 U/L (12-78); AMYLASE 89 U/L (25-115); ANION GAP 9 MEQ/L (8-16); AST/SGOT 24 U/L (7-37); BILIRUBIN,DIRECT 0.1 MG/DL (0.0-0.2); BILIRUBIN,TOTAL 0.4 MG/DL (0.2-1.0); BLOOD UREA NITROGEN 10 MG/DL (7-18); CALCIUM LEVEL 8.9 MG/DL (8.5-10.1); CARBON DIOXIDE LEVEL 23 MEQ/L (21-32); CHLORIDE LEVEL 109 MEQ/L (98-107); CREATININE FOR GFR 0.79 MG/DL (0.55-1.30); GLOMERULAR FILTRATION RATE > 60.0 (>60); GLUCOSE, FASTING 87 MG/DL (70-100); LIPASE 338 U/L (73-393); POTASSIUM SERUM 4.1 MEQ/L (3.5-5.1); SODIUM LEVEL 141 MEQ/L (136-145); TOTAL PROTEIN 7.3 GM/DL (6.4-8.2)
[2018-10-11 11:42] LABS: LEUKOCYTE ESTERASE UR AUTO RFX 1+ (NEGATIVE)
[2018-10-11 11:52] LABS: INR 1.02; PROTHROMBIN TIME 13.5 SECONDS (12.1-14.4)
[2018-10-11] MEDS ORDERED: ISOVUE-370 76% 100ML VIAL (Q9967) As Ordered (11:59)
== END 2018-10-11 13:37 | disposition home or self-care (01) ==
LOC: M ED 10:13
DX: N30.00 Acute cystitis without hematuria (principal); R11.0 Nausea; K92.1 Melena; Z87.440 Personal history of urinary (tract) infections; J45.909 Unspecified asthma, uncomplicated; E03.9 Hypothyroidism, unspecified; Z87.19 Personal history of other diseases of the digestive system; Z87.42 Personal history of other diseases of the female genital tract; K21.9 Gastro-esophageal reflux disease without esophagitis; F81.9 Developmental disorder of scholastic skills, unspecified; Z88.1 Allergy status to other antibiotic agents; Z79.899 Other long term (current) drug therapy
CPT/HCPCS: Q9967

== ENCOUNTER → 2018-10-12 | Outpatient (REF) | payer MEDICARE, MEDICAID ==
[2018-10-12 19:55] LABS: FERRITIN 6 NG/ML (8-252); FREE T4 0.88 NG/DL (0.76-1.46); IRON (FE) 13 UG/DL (50-170); PERCENT SATURATION 2.7 % (13.2-45.0); TOTAL IRON BINDING CAPACITY 475 UG/DL (250-450)
== END ==
LOC: M SFHCADAM 16:45
DX: D50.9 Iron deficiency anemia, unspecified (principal); E03.9 Hypothyroidism, unspecified
CPT/HCPCS: 83550

== ENCOUNTER → 2018-10-25 | Outpatient (REF) | payer MEDICARE, MEDICAID ==
[2018-10-25 13:22] LABS: BASO # 0.1 10^3/uL (0.0-0.2); BASO % 1.1 % (0.0-1.0); EOS # 0.2 10^3/uL (0.0-0.50); EOS % 4.8 % (0.0-3.0); HEMATOCRIT 35.1 % (36.0-47.0); HEMOGLOBIN 10.6 g/dl (12.0-15.5); IMMATURE GRANULOCYTE % 0.2 % (0-3.0); LYMPH # 1.6 10^3/uL (1.5-6.5); LYMPH % 35.9 % (24.0-44.0); MEAN CORPUSCULAR HEMOGLOBIN 23.2 pg (27.0-33.0); MEAN CORPUSCULAR HGB CONC 30.2 g/dl (32.0-36.5); MONO # 0.5 10^3/uL (0.0-0.8); MONO % 9.9 % (0.0-5.0); NEUTROPHILS # 2.2 10^3/uL (1.8-7.7); NEUTROPHILS % 48.1 % (36.0-66.0); PLATELET COUNT, AUTOMATED 383 10^3/uL (150-450); RED BLOOD COUNT 4.56 10^6/uL (4.00-5.40); RED CELL DISTRIBUTION WIDTH 16.8 % (11.5-14.5); WHITE BLOOD COUNT 4.5 10^3/uL (4.0-10.0)
== END ==
LOC: M LABDRWAD 12:46
DX: R19.7 Diarrhea, unspecified (principal)
CPT/HCPCS: 85025

== ENCOUNTER → 2018-11-05 | Outpatient (REF) | payer MEDICARE, MEDICAID ==
[2018-11-09 00:06] LABS: H PYLORI STOOL ANTIGEN Negative (Negative)
[2018-11-12 08:06] LABS: CALPROTECTIN STOOL 114 ug/g (0-120); O+P EXAM Final report (.)
== END ==
LOC: M LAB REF 09:13
DX: R19.7 Diarrhea, unspecified (principal)
CPT/HCPCS: 87177

== ENCOUNTER 2018-11-21 22:00 | Emergency (ER) | payer MEDICARE, MEDICAID ==
[~2018-11-21] VITALS: Ht 162.6 cm; Wt 113.6 kg
[~2018-11-21 22:00] MED LIST changes: +FLAG500T PO; +IBUP80TA; +MACR100C43 PO; +NORCOTAB PO; +PANT40TA3 PO; +PYLE1CAP PO; +VITACAP PO; +ZOFR4TAB14 PO; -ZOFR4TAB3 PO
[2018-11-21] MEDS ORDERED: CETI1SYP16 PO (22:18)
[2018-11-21] MEDS ORDERED: GI COCKTAIL 50ML BTL(HYOSCYAMINE/MAALOX/LIDOCAINE VISCOUS)(1:3:1) As Ordered ONE (22:35)
[2018-11-21] MEDS ORDERED: GI COCKTAIL 50ML BTL(HYOSCYAMINE/MAALOX/LIDOCAINE VISCOUS)(1:3:1) PO ONE (22:45)
[2018-11-21 22:57] LABS: BASO # 0.1 10^3/uL (0.0-0.2); BASO % 0.7 % (0.0-1.0); EOS # 0.3 10^3/uL (0.0-0.50); EOS % 3.4 % (0.0-3.0); HEMATOCRIT 34.9 % (36.0-47.0); HEMOGLOBIN 10.5 g/dl (12.0-15.5); LYMPH # 2.8 10^3/uL (1.5-6.5); LYMPH % 32.9 % (24.0-44.0); MEAN CORPUSCULAR HEMOGLOBIN 23.1 pg (27.0-33.0); MEAN CORPUSCULAR HGB CONC 30.1 g/dl (32.0-36.5); MEAN CORPUSCULAR VOLUME 76.9 fl (80.0-96.0); MONO # 0.7 10^3/uL (0.0-0.8); MONO % 7.8 % (0.0-5.0); NEUTROPHILS # 4.6 10^3/uL (1.8-7.7); PLATELET COUNT, AUTOMATED 393 10^3/uL (150-450); RED BLOOD COUNT 4.54 10^6/uL (4.00-5.40); WHITE BLOOD COUNT 8.4 10^3/uL (4.0-10.0)
[2018-11-21 23:21] LABS: HCG, SERUM QUALITATIVE NEGATIVE (NEGATIVE)
[2018-11-21 23:29] LABS: ALBUMIN 3.3 GM/DL (3.2-5.2); ALT/SGPT 29 U/L (12-78); BILIRUBIN,DIRECT < 0.1 MG/DL (0.0-0.2); BILIRUBIN,TOTAL 0.3 MG/DL (0.2-1.0); BLOOD UREA NITROGEN 12 MG/DL (7-18); CARBON DIOXIDE LEVEL 25 MEQ/L (21-32); CHLORIDE LEVEL 109 MEQ/L (98-107); GLOMERULAR FILTRATION RATE > 60.0 (>60); GLUCOSE, FASTING 88 MG/DL (70-100); LIPASE 491 U/L (73-393); POTASSIUM SERUM 4.4 MEQ/L (3.5-5.1); SODIUM LEVEL 144 MEQ/L (136-145); TOTAL PROTEIN 7.6 GM/DL (6.4-8.2)
[2018-11-21] MEDS ORDERED: ISOVUE-370 76% 100ML VIAL (Q9967) As Ordered ONE (23:43)
--- NOTE | 2018-11-22 00:54 | REPVR ---
EXAM: CT Abdomen and Pelvis With Contrast EXAM DATE/TIME: 11/21/2018 11:39 PM CLINICAL HISTORY: 23 years old, female; Pain; Abdominal pain; Epigastric; Additional info: Pain/pancreatitis TECHNIQUE: Axial computed tomography images of the abdomen and pelvis with intravenous contrast. All CT scans at this facility use at least one of these dose optimization techniques: automated exposure control; mA and/or kV adjustment per patient size (includes targeted exams where dose is matched to clinical indication); or iterative reconstruction. Coronal and sagittal reformatted images were created and reviewed. CONTRAST: 100 ml of iso administered intravenously. COMPARISON: CT ABD/PEL W/IV CONTRAST ONLY 10/11/2018 12:16 PM FINDINGS: Lower thorax: Unremarkable. ABDOMEN: Liver: Unremarkable. Gallbladder and bile ducts: No radiodense gallstones. No biliary ductal dilatation. Pancreas: Unremarkable. Spleen: Unremarkable. Adrenals: Unremarkable. Kidneys and ureters: No mass. No radiodense calculi. No hydronephrosis. Stomach and bowel: Multiple mildly thickened and hyperemic loops of proximal small bowel in the left upper quadrant/left midabdomen. No obstruction. No pneumatosis. Appendix: Normal. PELVIS: Bladder: Mild circumferential urinary bladder wall thickening, likely secondary to underdistention. Reproductive: Unremarkable. ABDOMEN and PELVIS: Intraperitoneal space: No free fluid. No organized fluid collection. No free air. Bones/joints: No acute osseous abnormality. Soft tissues: Small, fat-containing umbilical hernia. Vasculature: Unremarkable. No aneurysm. Lymph nodes: No pathologically enlarged lymph nodes. IMPRESSION: 1. Multiple mildly thickened and hyperemic loops of proximal small bowel in the left upper quadrant/left midabdomen, suggestive of nonspecific enteritis. No abscess, obstruction or free air. Follow-up to resolution is recommended. 2. Additional findings, as above. Electronically signed by: Severo Soto On 11/22/2018 00:53:25 AM
[2018-11-22 01:29] VITALS: BP 130/72
== END 2018-11-22 01:31 | disposition home or self-care (01) ==
LOC: M ED 22:00
DX: K52.9 Noninfective gastroenteritis and colitis, unspecified (principal); R74.8 Abnormal levels of other serum enzymes; E66.01 Morbid (severe) obesity due to excess calories; E03.9 Hypothyroidism, unspecified
CPT/HCPCS: 74177; 80048; 80076; 83690; 84703; 85025; 99283; Q9967

== ENCOUNTER → 2019-01-25 | Outpatient (REF) | payer MEDICARE, MEDICAID ==
[~2019-01-25] MED LIST changes: +CETI1SYP16 PO
[2019-01-25 13:17] LABS: HEMOGLOBIN 10.6 g/dl (12.0-15.5); MEAN CORPUSCULAR HEMOGLOBIN 22.8 pg (27.0-33.0); MEAN CORPUSCULAR HGB CONC 29.4 g/dl (32.0-36.5); MEAN CORPUSCULAR VOLUME 77.6 fl (80.0-96.0); PLATELET COUNT, AUTOMATED 438 10^3/uL (150-450); RED BLOOD COUNT 4.64 10^6/uL (4.00-5.40); WHITE BLOOD COUNT 6.3 10^3/uL (4.0-10.0)
[2019-01-25 13:58] LABS: ALBUMIN 3.6 GM/DL (3.2-5.2); ALT/SGPT 34 U/L (12-78); BILIRUBIN,TOTAL 0.6 MG/DL (0.2-1.0); BLOOD UREA NITROGEN 11 MG/DL (7-18); CALCIUM LEVEL 9.4 MG/DL (8.5-10.1); CARBON DIOXIDE LEVEL 31 MEQ/L (21-32); CHLORIDE LEVEL 101 MEQ/L (98-107); CREATININE FOR GFR 0.85 MG/DL (0.55-1.30); FERRITIN 8 NG/ML (8-252); FOLATE 13.8 NG/ML; FREE T4 1.02 NG/DL (0.76-1.46); GLOMERULAR FILTRATION RATE > 60.0 (>60); GLUCOSE, FASTING 90 MG/DL (70-100); IRON (FE) 27 UG/DL (50-170); POTASSIUM SERUM 4.6 MEQ/L (3.5-5.1); SODIUM LEVEL 137 MEQ/L (136-145); TOTAL 25(OH) VITAMIN D 20.1 NG/ML (30.0-100.0); TOTAL PROTEIN 7.5 GM/DL (6.4-8.2); VITAMIN B12 LEVEL 506 PG/ML
== END ==
LOC: M SFHCADAM 07:54
PROVIDERS: ATTEND Physician Assistant
DX: D50.9 Iron deficiency anemia, unspecified (principal); E03.9 Hypothyroidism, unspecified; E55.9 Vitamin D deficiency, unspecified

== ENCOUNTER 2019-02-18 17:06 | Emergency (ER) | payer MEDICARE, MEDICAID ==
[~2019-02-18] VITALS: Ht 162.6 cm; Wt 121.2 kg
[~2019-02-18 17:06] MED LIST changes: -/VITACHEW PO; -BACTDSTA PO; +FLIN1CHW3 PO; +HYDR-3715 PO; -NORCOTAB PO; +SULF1TAB23 PO
[2019-02-18] MEDS ORDERED: LEVO75TA4 (17:14)
[2019-02-18 17:53] LABS: BASO % 0.6 % (0.0-1.0); EOS # 0.1 10^3/uL (0.0-0.50); EOS % 2.2 % (0.0-3.0); HEMATOCRIT 34.9 % (36.0-47.0); HEMOGLOBIN 10.4 g/dl (12.0-15.5); LYMPH # 1.3 10^3/uL (1.5-6.5); LYMPH % 20.2 % (24.0-44.0); MEAN CORPUSCULAR HEMOGLOBIN 22.9 pg (27.0-33.0); MEAN CORPUSCULAR HGB CONC 29.8 g/dl (32.0-36.5); MEAN CORPUSCULAR VOLUME 76.7 fl (80.0-96.0); MONO # 0.5 10^3/uL (0.0-0.8); MONO % 8.2 % (0.0-5.0); NEUTROPHILS # 4.3 10^3/uL (1.8-7.7); NEUTROPHILS % 68.5 % (36.0-66.0); PLATELET COUNT, AUTOMATED 360 10^3/uL (150-450); RED BLOOD COUNT 4.55 10^6/uL (4.00-5.40); WHITE BLOOD COUNT 6.3 10^3/uL (4.0-10.0)
[2019-02-18] MEDS ORDERED: MORPHINE 2 MG/ML 1ML SYRINGE (J2270) IV ONE (18:00)
[2019-02-18] MEDS ORDERED: ONDANSETRON 4MG/2ML VIAL (J2405) IV ONE (18:15)
[2019-02-18 18:22] LABS: ALBUMIN 3.4 GM/DL (3.2-5.2); ALT/SGPT 28 U/L (12-78); BILIRUBIN,DIRECT 0.1 MG/DL (0.0-0.2); BILIRUBIN,TOTAL 0.4 MG/DL (0.2-1.0); BLOOD UREA NITROGEN 14 MG/DL (7-18); CALCIUM LEVEL 8.7 MG/DL (8.5-10.1); CARBON DIOXIDE LEVEL 25 MEQ/L (21-32); CHLORIDE LEVEL 107 MEQ/L (98-107); CREATININE FOR GFR 0.87 MG/DL (0.55-1.30); GLOMERULAR FILTRATION RATE > 60.0 (>60); GLUCOSE, FASTING 102 MG/DL (70-100); LIPASE 407 U/L (73-393); POTASSIUM SERUM 4.1 MEQ/L (3.5-5.1); SODIUM LEVEL 140 MEQ/L (136-145); TOTAL PROTEIN 7.3 GM/DL (6.4-8.2)
[2019-02-18] MEDS ORDERED: NS 1,000 ML IV ONE (18:30)
[2019-02-18] MEDS ORDERED: FLAG500T PO ×2 (19:10→21:18)
[2019-02-18] MEDS ORDERED: METOCLOPRAMIDE INJ 10MG/2ML VIAL (J2765) IV ONE (19:45)
[2019-02-18 20:47] VITALS: BP 125/75
[2019-02-18 21:22] LABS: CHLAMYDIA DNA AMPLIFICATION NEGATIVE (NEGATIVE); GC DNA AMPLIFICATION NEGATIVE (NEGATIVE)
--- NOTE | 2019-02-18 21:22 | REPVR ---
EXAM: US Pelvis Complete, Transabdominal EXAM DATE/TIME: 02/18/2019 8:20 PM CLINICAL HISTORY: 23 years old, female; Pain; Pelvic pain; Additional info: Llq/groin pain, h/o ovarian cyst TECHNIQUE: Imaging protocol: Real-time transabdominal pelvic ultrasound with image documentation. Complete exam. COMPARISON: US PELVIC NON-OB COMPLETE 10/02/2018 10:18 PM FINDINGS: Uterus/cervix: 7.6 x 3.7 x 5.1 cm. Normal endometrial thickness, measuring approximately 5 mm. Right ovary: Not visualized. Left ovary: Not visualized. Free fluid: None. Bladder: Normal. IMPRESSION: Normal appearing uterus. Nonvisualized ovaries. Electronically signed by: Severo Soto On 02/18/2019 21:22:35 PM
[2019-02-18] MEDS ORDERED: metroNIDAZOLE (FLAGYL) 500 MG TAB PO ONE (21:30)
== END 2019-02-18 21:26 | disposition home or self-care (01) ==
LOC: M ED 17:06
DX: D50.9 Iron deficiency anemia, unspecified (principal); N76.0 Acute vaginitis; E03.9 Hypothyroidism, unspecified; K76.0 Fatty (change of) liver, not elsewhere classified; F79 Unspecified intellectual disabilities; Z79.899 Other long term (current) drug therapy; Z79.890 Hormone replacement therapy; Z88.1 Allergy status to other antibiotic agents
CPT/HCPCS: 76856; 80048; 80076; 81001; 83690; 85025; 87086; 87210; 87491; 87591; 96361; 96374; 96375; 99284; J2270; J2405; J2765

== ENCOUNTER 2019-03-15 21:56 | Observation (INO) | payer MEDICARE, MEDICAID ==
[~2019-03-15] VITALS: Ht 162.6 cm; Wt 123.6 kg
[~2019-03-15 21:56] MED LIST changes: +LEVO75TA4 PO
[2019-03-15 23:21] LABS: BASO % 0.4 % (0.0-1.0); EOS # 0.4 10^3/uL (0.0-0.50); EOS % 4.1 % (0.0-3.0); HEMATOCRIT 33.2 % (36.0-47.0); HEMOGLOBIN 10.1 g/dl (12.0-15.5); MEAN CORPUSCULAR HEMOGLOBIN 23.2 pg (27.0-33.0); MEAN CORPUSCULAR HGB CONC 30.4 g/dl (32.0-36.5); MEAN CORPUSCULAR VOLUME 76.1 fl (80.0-96.0); MONO # 0.7 10^3/uL (0.0-0.8); MONO % 7.2 % (0.0-5.0); NEUTROPHILS % 55.1 % (36.0-66.0); PLATELET COUNT, AUTOMATED 368 10^3/uL (150-450); RED BLOOD COUNT 4.36 10^6/uL (4.00-5.40); WHITE BLOOD COUNT 9.1 10^3/uL (4.0-10.0)
[2019-03-15] MEDS ORDERED: GI COCKTAIL 50ML BTL(HYOSCYAMINE/MAALOX/LIDOCAINE VISCOUS)(1:3:1) PO ONE (23:30)
[2019-03-15] MEDS ORDERED: SUCRALFATE SUSP 1GM/10ML UD PO ONE (23:30)
[2019-03-15 23:38] LABS: APPEARANCE, URINE CLOUDY (CLEAR); BACTERIA, URINE AUTO 1+ (NEGATIVE); BILIRUBIN, URINE AUTO NEGATIVE (NEGATIVE); BLOOD, URINE BLOOD NEGATIVE (NEGATIVE); COLOR, URINE YELLOW (YELLOW); GLUCOSE, URINE (UA) AUTO NEGATIVE (NEGATIVE); KETONE, URINE AUTO NEGATIVE (NEGATIVE); LEUKOCYTE ESTERASE, URINE AUTO 2+ (NEGATIVE); MUCUS, URINE SMALL (NEGATIVE); NITRITE, URINE AUTO NEGATIVE (NEGATIVE); PROTEIN, URINE AUTO NEGATIVE (NEGATIVE); RBC, URINE AUTO 2 /HPF (0-3); SPECIFIC GRAVITY URINE AUTO 1.023 (1.002-1.035); SQUAMOUS EPITHELIAL CELL UR AU 16 /HPF (0-6); WBC, URINE AUTO 6 /HPF (0-3)
[2019-03-15 23:52] LABS: ALBUMIN 3.7 GM/DL (3.2-5.2); ALT/SGPT 41 U/L (12-78); BILIRUBIN,DIRECT 0.1 MG/DL (0.0-0.2); BILIRUBIN,TOTAL 0.5 MG/DL (0.2-1.0); BLOOD UREA NITROGEN 13 MG/DL (7-18); CALCIUM LEVEL 8.8 MG/DL (8.5-10.1); CARBON DIOXIDE LEVEL 25 MEQ/L (21-32); CHLORIDE LEVEL 106 MEQ/L (98-107); CREATININE FOR GFR 0.92 MG/DL (0.55-1.30); GLOMERULAR FILTRATION RATE > 60.0 (>60); GLUCOSE, FASTING 87 MG/DL (70-100); LIPASE 952 U/L (73-393); POTASSIUM SERUM 3.9 MEQ/L (3.5-5.1); SODIUM LEVEL 138 MEQ/L (136-145); TOTAL PROTEIN 7.6 GM/DL (6.4-8.2)
[2019-03-15 23:53] LABS: HCG, SERUM QUALITATIVE NEGATIVE (NEGATIVE)
--- NOTE | 2019-03-16 01:56 | REPVR ---
EXAM: US Abdomen Limited, Right Upper Quadrant EXAM DATE/TIME: 03/16/2019 1:13 AM CLINICAL HISTORY: 23 years old, female; Pain; Abdominal pain; Epigastric; Additional info: Eval biliary/pancreatitis TECHNIQUE: Imaging protocol: Real-time ultrasound of the abdomen with image documentation. Examination was focused on the right upper quadrant. COMPARISON: GALLBLADDER US 05/18/2018 10:45 PM FINDINGS: Liver: Unremarkable. Gallbladder: Suboptimally visualized. No definite gallstones. No definite gallbladder wall thickening or pericholecystic fluid. Common bile duct: Suboptimally visualized No definite stones. No ductal dilatation. Pancreas: Suboptimally visualized. Right kidney: No mass. No definite stones. No hydronephrosis. IMPRESSION: Somewhat limited examination without acute sonographic findings. Electronically signed by: Severo Soto On 03/16/2019 01:56:28 AM
[2019-03-16] MEDS ORDERED: NS 1,000 ML IV ONE (02:15)
[2019-03-16] MEDS ORDERED: ISOVUE-370 76% 100ML VIAL (Q9967) As Ordered ONE (02:17)
[2019-03-16] MEDS: NS 1,000 ML IV SCH ×6 (03:57→22:15)
[2019-03-16] MEDS ORDERED: MORPHINE 4 MG/ML 1ML VIAL/SYRINGE (J2270) IV ONE (04:00)
[2019-03-16] MEDS ORDERED: METOCLOPRAMIDE INJ 10MG/2ML VIAL (J2765) IV ONE (04:00)
--- NOTE | 2019-03-16 04:11 | REPVR ---
EXAM: CT Abdomen and Pelvis With Contrast EXAM DATE/TIME: 03/16/2019 2:04 AM CLINICAL HISTORY: 23 years old, female; Pain; Abdominal pain; Other: Pancreatitis? TECHNIQUE: Imaging protocol: Axial computed tomography images of the abdomen and pelvis with intravenous contrast. Coronal and sagittal reformatted images were created and reviewed. Radiation optimization: All CT scans at this facility use at least one of these dose optimization techniques: automated exposure control; mA and/or kV adjustment per patient size (includes targeted exams where dose is matched to clinical indication); or iterative reconstruction. Contrast material: iso Contrast volume: 100 ml Contrast route: ac COMPARISON: CT ABD/PEL W/IV CONTRAST ONLY 11/21/2018 11:54 PM FINDINGS: Lower thorax: No acute findings. ABDOMEN: Liver: Liver attenuation is 75 Hounsfield units and the spleen is 94. Gallbladder and bile ducts: Normal. No calcified stones. No ductal dilation. Pancreas: Peripancreatic fat is normal. Spleen: Normal. No splenomegaly. Adrenals: Normal. No mass. Kidneys and ureters: Normal. No hydronephrosis. Stomach and bowel: See Intraperitoneal Space Finding. Appendix: A normal appendix is seen. PELVIS: Bladder: Unremarkable as visualized. Reproductive: Right ovarian functional cyst measuring up to 17 mm. ABDOMEN and PELVIS: Intraperitoneal space: Fluid in nondilated proximal small bowel with slight induration of the supplying mesentery in the left upper quadrant. There is question of slight wall thickening and findings may reflect enteritis. Bones/joints: No acute fracture. No dislocation. Soft tissues: Unremarkable. Vasculature: Normal. No abdominal aortic aneurysm. Lymph nodes: Normal. No enlarged lymph nodes. IMPRESSION: 1. Fluid in nondilated small bowel segments in the mid and left upper abdomen with slight induration of the supplying mesentery and question of slight wall thickening which may reflect enteritis which is increased since 11/21/2018. 2. Otherwise negative CT abdomen/pelvis. Electronically signed by: Raul Vance On 03/16/2019 04:10:32 AM
[2019-03-16] MEDS ORDERED: CETI5CHW PO (04:50)
[2019-03-16] MEDS ORDERED: HEARTAB2 PO (04:50)
[2019-03-16] MEDS ORDERED: AQUACHW PO (04:51)
[2019-03-16] MEDS ORDERED: MORPHINE 4 MG/ML 1ML VIAL/SYRINGE (J2270) IV PRN (05:15)
--- NOTE | 2019-03-16 05:19 | HPEPDOC ---
General Date of Admission Mar 15, 2019 at 21:57 Chief Complaint The patient is a 23-year-old female admitted with a reason for visit of Pancrea titis. History of Present Illness 23-year-old female with past medical history of hypothyroidism, morbid obesity, and recurrent pancreatitis presents to the ER with a chief complaint of epigastric abdominal pain. The patient states that she was feeling well up until yesterday evening when she all of a sudden noticed sharp epigastric/supraumbilical abdominal pain which radiated in a belt-like distribution around her torso. She states that this is similar to when she has had episodes of pancreatitis in the past. She reported that this is the ninth time that she has had pancreatitis since the sixth grade. She denied any fevers, chills, chest pain, palpitations, or any vomiting/diarrhea. She does endorse some associated nausea. She denies any associated alleviating or aggravating factors. Of note, the patient states that she does follow with Dr. Nascimento of GI. She reports that she still has a gallbladder intact, and denies any alcohol use, or starting any medications. In the ER, clinical and lab work up was suggestive of acute pancreatitis. The patient will be admitted under the service of the [facility] for further evaluation and management. Home Medications Scheduled Cetirizine HCl (Cetirizine HCl) 5 Mg Tab.chew, 5 MG PO DAILY, (Reported) Famotidine (Heartburn Relief) 10 Mg Tablet, 10 MG PO QPM, (Reported) PATIENT STATES SHE TAKES DAILY AFTER DINNER ONLY Levothyroxine Sodium (Levothyroxine Sodium) 75 Mcg Tab, 75 MCG PO DAILY, (Reported) Mv-Min 51/Folic Acid/Vit K/Ubi (Aquadeks Chewable Tablet) 1 Each Tab.chew, 1 TAB PO DAILY, (Reported) Allergies Coded Allergies: ciprofloxacin (Verified Allergy, Unknown, 03/15/19) Past Medical History Medical History As noted in HPI. Surgical History TONSILLECTOMY 08/10/16 1 WISDOM TOOTH EXTRACTION COLONOSCOP,EGD 08/2018 Social History * Smoker: Denies Alcohol: Denies Drugs: denies Review of Systems Other systems 10 point review of systems negative unless otherwise specified in HPI. Physical Examination General Exam: Positive: Alert, Cooperative, No Acute Distress ENT Exam: Positive: Atraumatic, Mucous membr. moist/pink Neck Exam: Negative: JVD Chest Exam: Positive: Clear to auscultation, Normal air movement Heart Exam: Positive: Rate Normal, Normal S1, Normal S2 Abdomen Exam: Positive: Soft, Tenderness (mild tenderness to deep palpation in the supraumbilical/epigastric area. No rebound tenderness, rigidity, or guarding noted.) Extremity Exam: Negative: Tenderness, Swelling Psych Exam: Positive: Oriented x 3 Vital Signs Vital Signs Date Time Temp Pulse Resp B/P (MAP) Pulse Ox O2 Delivery O2 Flow Rate FiO2 03/16/19 04:31 18 98 03/16/19 04:11 93 Room Air 03/16/19 04:00 150/83 (105) 03/15/19 21:57 98.7 Laboratory Data Labs 24H Laboratory Tests 2 03/15/19 23:10: Immature Granulocyte % (Auto) 0.2, White Blood Count 9.1, Red Blood Count 4.36, Hemoglobin 10.1L, Hematocrit 33.2L, Mean Corpuscular Volume 76.1L, Mean Corpuscular Hemoglobin 23.2L, Mean Corpuscular Hemoglobin Concent 30.4L, Red Cell Distribution Width 17.2H, Platelet Count 368, Neutrophils (%) (Auto) 55.1, Lymphocytes (%) (Auto) 33.0, Monocytes (%) (Auto) 7.2H, Eosinophils (%) (Auto) 4.1H, Basophils (%) (Auto) 0.4, Neutrophils # (Auto) 5.0, Lymphocytes # (Auto) 3.0, Monocytes # (Auto) 0.7, Eosinophils # (Auto) 0.4, Basophils # (Auto) 0.0, Nucleated Red Blood Cells % (auto) 0.0, Urine Appearance CLOUDYH, Urine Color YELLOW, Urine pH 6.0, Urine Specific [place] 1.023, Urine Protein NEGATIVE, Uri ne Glucose (UA) NEGATIVE, Urine Ketones NEGATIVE, Urine Urobilinogen 2.0H, Urine Bilirubin NEGATIVE, Urine Leukocyte Esterase 2+H, Urine Blood NEGATIVE, Urine Nitrite NEGATIVE, Urine WBC (Auto) 6H, Urine RBC (Auto) 2, Urine Hyaline Casts (Auto) 0, Urine Bacteria (Auto) 1+H, Urine Squamous Epithelial Cells 16, Urine Mucus (Auto) SMALL, Urine Sperm (Auto) , Anion Gap 7L, Glomerular Filtration Rate > 60.0, Calcium Level 8.8, Aspartate Amino Transf (AST/SGOT) 22, Alanine Aminotransferase (ALT/SGPT) 41, Alkaline Phosphatase 93, Total Bilirubin 0.5, Direct Bilirubin 0.1, Total Protein 7.6, Albumin 3.7, Albumin/Globulin Ratio 0.95L, Lipase 952H, Human Chorionic Gonadotropin, Qual NEGATIVE CBC/BMP Laboratory Tests 03/15/19 23:10 Red Blood Count 4.36, Mean Corpuscular Volume 76.1 L, Mean Corpuscular Hemoglobin 23.2 L, Mean Corpuscular Hemoglobin Concent 30.4 L, Red Cell Dist ribution Width 17.2 H, Neutrophils (%) (Auto) 55.1, Lymphocytes (%) (Auto) 33.0, Monocytes (%) (Auto) 7.2 H, Eosinophils (%) (Auto) 4.1 H, Basophils (%) (Auto) 0.4, Neutrophils # (Auto) 5.0, Lymphocytes # (Auto) 3.0, Monocytes # (Auto) 0.7, Eosinophils # (Auto) 0.4, Basophils # (Auto) 0.0 Microbiology Microbiology 03/15/19 Urine Culture, Received Pending Plan / VTE VTE Prophylaxis Ordered?: Yes Plan Plan Recurrent Pancreatitis CT Abd/Pel and U/S Gallbladder with no acute findings LFTs within normal limits We will keep the patient NPO IVF Hydration Analgesic and antiemetic therapy ordered Lipid Panel We will cont to monitor the patient Hypothyroidism Cont Levothyroxine DVT Prophylaxis AYDEN Hutchinson MD Mar 16, 2019 05:19
[2019-03-16] MEDS ORDERED: ENOXAPARIN 40 MG/0.4 ML SYRINGE (J1650) SC ONE (05:45)
[2019-03-16 06:11] VITALS: BP 134/66
[2019-03-16] MEDS: ONDANSETRON 4MG/2ML VIAL (J2405) IV SCH ×2 (06:36→08:38)
[2019-03-16] MEDS: LEVOTHYROXINE 75MCG TABLET (0.075MG) PO SCH (06:37)
[2019-03-16 07:29] LABS: CHOLESTEROL LEVEL 157 MG/DL (<200); CHOLESTEROL RISK RATIO 2.492 (<5); HDL CHOLESTEROL 63 MG/DL (>40); LDL CHOLESTEROL 76 MG/DL (<100); NON-HDL-C 94 MG/DL; TRIGLYCERIDES LEVEL 92 MG/DL (<150)
[2019-03-16] MEDS: CETIRIZINE (ZyrTEC) 5 MG/5 ML UDC DYE FREE PO SCH (08:38)
--- NOTE | 2019-03-16 10:23 | IPNPDOC ---
Subjective Date Seen The patient was seen on 03/16/19. Subjective Chief Complaint/HPI Pt this morning denies abd pain. She does feel slightly sick to her stomch but denies vomiting. Constitutional: Denies: Chills, Fever ENT: Denies: Head Aches Pulmonary: Denies: Dyspnea, Cough Cardiovascular: Denies: Chest Pain, Palpitations Gastrointestinal: Reports: Nausea; Denies: Vomiting, Abdominal Pain Psych: Reports: Mood Normal Objective Physical Examination General Exam: Positive: Alert, Cooperative, No Acute Distress ENT Exam: Positive: Atraumatic, Mucous membr. moist/pink Neck Exam: Negative: JVD Chest Exam: Positive: Clear to auscultation, Normal air movement Heart Exam: Positive: Rate Normal, Normal S1, Normal S2 Abdomen Exam: Positive: Normal bowel sounds, Soft; Negative: Tenderness Extremity Exam: Negative: Tenderness, Swelling Neuro Exam: Positive: Normal Speech Psych Exam: Positive: Oriented x 3 Assessment /Plan Problems (1) Pancreatitis Status: Acute Response to Treatment: Stable Discussed With: Nurse, Patient Problem Specific Plan: Monitor Clinically, Repeat Labs Problem Text: Pt admitted overnight, will repeat lipase today and then tomorrow morning. Cont NPO for now. Adjust IVF rate which is current at 250 cc/hr to 125 cc/hr. Pt has h/o pancreatitis. MRCP, CT without evidence of abnormality, genetic testing down on PRSS1 with few mutations and no high risk mutations, pt has seen GI/[place]. (2) Morbid obesity Status: Chronic Response to Treatment: Stable Problem Specific Plan: Monitor Clinically Plan/VTE VTE Prophylaxis Ordered?: Yes VS, I&O, 24H, [facility] Vital Signs/I&O Vital Signs Date Time Temp Pulse Resp B/P (MAP) Pulse Ox O2 Delivery O2 Flow Rate FiO2 03/16/19 06:11 97.0 60 18 134/66 (88) 95 03/16/19 05:26 Room Air Laboratory Data 24H LABS Laboratory Tests 2 03/15/19 23:10: Immature Granulocyte % (Auto) 0.2, White Blood Count 9.1, Red Blood Count 4.36, Hemoglobin 10.1L, Hematocrit 33.2L, Mean Corpuscular Volume 76.1L, Mean Corpuscular Hemoglobin 23.2L, Mean Corpuscular Hemoglobin Concent 30.4L, Red Virgen l Distribution Width 17.2H, Platelet Count 368, Neutrophils (%) (Auto) 55.1, Lymphocytes (%) (Auto) 33.0, Monocytes (%) (Auto) 7.2H, Eosinophils (%) (Auto) 4.1H, Basophils (%) (Auto) 0.4, Neutrophils # (Auto) 5.0, Lymphocytes # (Auto) 3.0, Monocytes # (Auto) 0.7, Eosinophils # (Auto) 0.4, Basophils # (Auto) 0.0, Nucleated Red Blood Cells % (auto) 0.0, Urine Appearance CLOUDYH, Urine Color YELLOW, Urine pH 6.0, Urine Specific [place] 1.023, Urine Protein NEGATIVE, Urine Glucose (UA) NEGATIVE, Urine Ketones NEGATIVE, Urine Urobilinogen 2.0H, Urine Bilirubin NEGATIVE, Urine Leukocyte Esterase 2+H, Urine Blood NEGATIVE, Urine Nitrite NEGATIVE, Urine WBC (Auto) 6H, Urine RBC (Auto) 2, Urine Hyaline Casts (Auto) 0, Urine Bacteria (Auto) 1+H, Urine Squamous Epithelial Cells 16, Urine Mucus (Auto) SMALL, Urine Sperm (Auto) , Anion Gap 7L, Glomerular Filtration Rate > 60.0, Calcium Level 8.8, Aspartate Amino Transf (AST/SGOT) 22, Alanine Aminotransferase (ALT/SGPT) 41, Alkaline Phosphatase 93, Total Bilirubin 0.5, Direct Bilirubin 0.1, Total Protein 7.6, Albumin 3.7, Albumin/Globulin Ratio 0.95L, Triglycerides Level 92, Total Cholesterol 157, LDL Cholesterol 76, Non-HDL Cholesterol (LDL + VLDL) 94, Total HDL Cholesterol 63, Cholesterol/HDL Ratio 2.492, Lipase 952H, Human Chorionic Gonadotropin, Qual NEGATIVE CBC/BMP Laboratory Tests 03/15/19 23:10 Red Blood Count 4.36, Mean Corpuscular Volume 76.1 L, Mean Corpuscular Hemoglobin 23.2 L, Mean Corpuscular Hemoglobin Concent 30.4 L, Red Cell Distribution Width 17.2 H, Neutrophils (%) (Auto) 55.1, Lymphocytes (%) (Auto) 33.0, Monocytes (%) (Auto) 7.2 H, Eosinophils (%) (Auto) 4.1 H, Basophils (%) (Auto) 0.4, Neutrophils # (Auto) 5.0, Lymphocytes # (Auto) 3.0, Monocytes # (Auto) 0.7, Eosinophils # (Auto) 0.4, Basophils # (Auto) 0.0 Microbiology Microbiology 03/15/19 Urine Culture, Received Pending Attending Note Attending Note patient seen, looks comfortable, says she feels better. examined. bowel sounds are active, no guarding, minimal epigastric tenderness. IV rate slowed to 150. SHANTE LARKIN PA-C Mar 16, 2019 10:23 Norris Eugene MD Mar 16, 2019 12:02
[2019-03-16] MEDS ORDERED: ONDANSETRON 4MG/2ML VIAL (J2405) IV PRN (11:00)
[2019-03-16 14:00] VITALS: BP 145/85
[2019-03-16] MEDS ORDERED: ENOXAPARIN 40 MG/0.4 ML SYRINGE (J1650) SC SCH (21:00)
[2019-03-16 22:00] VITALS: BP 128/75
[2019-03-17] MEDS: NS 1,000 ML IV SCH (05:04)
[2019-03-17] MEDS: LEVOTHYROXINE 75MCG TABLET (0.075MG) PO SCH (05:05)
[2019-03-17 06:00] VITALS: BP 121/68
[2019-03-17 06:01] LABS: HEMATOCRIT 29.7 % (36.0-47.0); HEMOGLOBIN 8.8 g/dl (12.0-15.5); MEAN CORPUSCULAR HEMOGLOBIN 22.6 pg (27.0-33.0); MEAN CORPUSCULAR HGB CONC 29.6 g/dl (32.0-36.5); MEAN CORPUSCULAR VOLUME 76.3 fl (80.0-96.0); PLATELET COUNT, AUTOMATED 165 10^3/uL (150-450); RED BLOOD COUNT 3.89 10^6/uL (4.00-5.40); WHITE BLOOD COUNT 6.5 10^3/uL (4.0-10.0)
[2019-03-17 06:37] LABS: ALBUMIN 2.9 GM/DL (3.2-5.2); ALT/SGPT 25 U/L (12-78); BILIRUBIN,TOTAL 0.6 MG/DL (0.2-1.0); BLOOD UREA NITROGEN 6 MG/DL (7-18); CALCIUM LEVEL 8.5 MG/DL (8.5-10.1); CARBON DIOXIDE LEVEL 24 MEQ/L (21-32); CHLORIDE LEVEL 110 MEQ/L (98-107); CREATININE FOR GFR 0.74 MG/DL (0.55-1.30); GLOMERULAR FILTRATION RATE > 60.0 (>60); GLUCOSE, FASTING 78 MG/DL (70-100); LIPASE 391 U/L (73-393); MAGNESIUM LEVEL 1.9 MG/DL (1.8-2.4); POTASSIUM SERUM 3.8 MEQ/L (3.5-5.1); SODIUM LEVEL 140 MEQ/L (136-145); TOTAL PROTEIN 6.5 GM/DL (6.4-8.2)
[2019-03-17] MEDS: CETIRIZINE (ZyrTEC) 5 MG/5 ML UDC DYE FREE PO SCH (08:44)
--- NOTE | 2019-03-17 08:44 | IPNPDOC ---
Subjective Date Seen The patient was seen on 03/17/19. Subjective Chief Complaint/HPI Pt this morning is feeling pretty good. She denies abd pain and nausea. She is tolerating clear liquids this morning and last night. General: Denies: Fatigue Constitutional: Denies: Chills, Fever Pulmonary: Denies: Dyspnea, Cough Cardiovascular: Denies: Chest Pain, Palpitations Gastrointestinal: Denies: Nausea, Vomiting, Diarrhea Neurological: Denies: Weakness Psych: Reports: Mood Normal Objective Physical Examination General Exam: Positive: Alert, Cooperative, No Acute Distress ENT Exam: Positive: Mucous membr. moist/pink Neck Exam: Negative: JVD Chest Exam: Positive: Clear to auscultation, Normal air movement Heart Exam: Positive: Rate Normal, Normal S1, Normal S2 Abdomen Exam: Positive: Normal bowel sounds, Soft; Negative: Tenderness Extremity Exam: Negative: Tenderness, Swelling Neuro Exam: Positive: Normal Speech Psych Exam: Positive: Oriented x 3 Assessment /Plan Problems (1) Pancreatitis Status: Acute Response to Treatment: Stable Discussed With: Nurse, Patient Problem Specific Plan: Monitor Clinically, Repeat Labs Problem Text: 03/16 Diet advanced to clears, pt tolerating and her lipase has normalized. Will advance her diet, if she tolerates, likely can go home later today. D/C IVF. 03/15 Pt admitted overnight, will repeat lipase today and then tomorrow morning. Cont NPO for now. Adjust IVF rate which is current at 250 cc/hr to 125 cc/hr. Pt has h/o pancreatitis. MRCP, CT without evidence of abnormality, genetic testing down on PRSS1 with few mutations and no high risk mutations, pt has seen GI/[place]. (2) Morbid obesity Status: Chronic Response to Treatment: Stable Problem Specific Plan: Monitor Clinically Plan/VTE VTE Prophylaxis Ordered?: Yes VS, I&O, 24H, Fishbone Vital Signs/I&O Vital Signs Date Time Temp Pulse Resp B/P (MAP) Pulse Ox O2 Delivery O2 Flow Rate FiO2 03/17/19 06:00 98.3 93 20 121/68 (85) 95 03/16/19 05:26 Room Air I&O- Last 24 Hours up to 6 AM 03/17/19 06:00 Intake Total 3550 ml Output Total 3775 ml Balance -225 ml Laboratory Data 24H LABS Laboratory Tests 2 03/16/19 10:20: Lipase 649H 03/17/19 05:48: Lipase 391, Nucleated Red Blood Cells % (auto) 0.0, Anion Gap 6L, Glomerular Filtration Rate > 60.0, Blood Urea Nitrogen 6#L, Creatinine 0.74, Sodium Level 140, Potassium Level 3.8, Chloride Level 110H, Carbon Dioxide Level 24, Calcium Level 8.5, Aspartate Amino Transf (AST/SGOT) 15, Alanine Aminotransferase (ALT/SGPT) 25, Alkaline Phosphatase 74, Total Bilirubin 0.6, Total Protein 6.5, Albumin 2.9#L, Magnesium Level 1.9, Albumin/Globulin Ratio 0.81L CBC/BMP Laboratory Tests 03/17/19 05:48 Red Blood Count 3.89 L, Mean Corpuscular Volume 76.3 L, Mean Corpuscular Hemoglobin 22.6 L, Mean Corpuscular Hemoglobin Concent 29.6 L, Red Cell Distribution Width 17.4 H, Calcium Level 8.5, Aspartate Amino Transf (AST/SGOT) 15, Alanine Aminotransferase (ALT/SGPT) 25, Alkaline Phosphatase 74, Total Bilirubin 0.6, Total Protein 6.5, Albumin 2.9 #L Microbiology Microbiology 03/15/19 Urine Culture - Final, Complete SHANTE LARKIN PA-C Mar 17, 2019 08:44
[2019-03-17] MEDS ORDERED: FERR325T3 PO (13:30)
--- NOTE | 2019-03-17 15:16 | DSES ---
DATE OF ADMISSION: 03/15/2019 DATE OF DISCHARGE: 03/17/2019 REASON FOR ADMISSION: Ms. ohara is admitted with episode of abdominal pain associated with elevated lipase. She has a long history since childhood of recurrent episodes of pancreatitis, genetic and anatomic causes and metabolic causes have so far not been identified. On admission, she had a lipase of 952. Amylase was not measured. On the following day, her lipase dropped to 649 and she was feeling better with only minimal residual abdominal discomfort and after overnight hydration and bowel rest, she was allowed a clear liquid diet. On the morning of 03/17/2019, her diet was quickly advanced and at noon she was able tolerate without any return of symptoms a full regular meal with lipase having returned to normal. Her blood sugar was normal at 87 on admission, 78 the morning of discharge. Potassium, chloride, blood urea nitrogen (BUN) and creatinine all within normal limits. Complete blood count (CBC) was not elevated acutely and the following morning remained normal, although hemoglobin was somewhat low at 8.8 with microcytic indices. IMPRESSION: 1. Mild pancreatitis, recurrent. The patient symptomatically improved sufficiently to allow discharge. 2. Anemia, microcytic consistent with iron deficiency. Followup with primary care provider within the next two weeks. She has routine care through Dr. Nascimento and again significant searches have been done including anatomic evaluation, genetic evaluation, etcetera to try to identify a cause for her recurrent episodes of pancreatitis so far without any definitive conclusions. Activity will be as tolerated. Diet will be a low-fat diet. DISCHARGE MEDICATIONS: Include: - cetirizine 5 mg daily for allergy symptoms - famotidine 10 mg daily for heartburn - levothyroxine 75 mcg daily for hypothyroid replacement dosing - She takes a chewable multiple vitamin daily that includes folic acid, vitamin K, specific brand AquADEKs chewable tablet daily.
== END 2019-03-17 14:19 | disposition home or self-care (01) ==
LOC: M ED 21:56 → M ED INP 21:57 → M MSPAV 03-16 06:11
PROVIDERS: ADMIT Internal Medicine; ATTEND Family Medicine
DX: K85.90 Acute pancreatitis without necrosis or infection, unspecified (principal); D50.8 Other iron deficiency anemias; E03.9 Hypothyroidism, unspecified; E66.01 Morbid (severe) obesity due to excess calories; Z88.1 Allergy status to other antibiotic agents; Z79.899 Other long term (current) drug therapy
CPT/HCPCS: 36415; 74177; 76705; 80048; 80053; 80061; 80076; 81001; 83690; 83735; 84703; 85025; 85027; 87086; 96361; 96372; 96374; 96375; 96376; 99285; G0378; J1650; J2270; J2405; J2765; Q9967

== ENCOUNTER → 2019-03-20 | Outpatient (REF) | payer MEDICARE, MEDICAID ==
[~2019-03-20] MED LIST changes: +CETI5CHW PO; +FERR325T3 PO; +HEARTAB2 PO
[2019-03-20 13:52] LABS: BASO % 0.7 % (0.0-1.0); EOS # 0.3 10^3/uL (0.0-0.50); EOS % 5.6 % (0.0-3.0); HEMATOCRIT 34.5 % (36.0-47.0); HEMOGLOBIN 10.3 g/dl (12.0-15.5); LYMPH # 2.1 10^3/uL (1.5-6.5); LYMPH % 34.6 % (24.0-44.0); MEAN CORPUSCULAR HEMOGLOBIN 23.1 pg (27.0-33.0); MEAN CORPUSCULAR HGB CONC 29.9 g/dl (32.0-36.5); MEAN CORPUSCULAR VOLUME 77.4 fl (80.0-96.0); MONO # 0.5 10^3/uL (0.0-0.8); MONO % 8.3 % (0.0-5.0); NEUTROPHILS # 3.1 10^3/uL (1.8-7.7); NEUTROPHILS % 50.5 % (36.0-66.0); PLATELET COUNT, AUTOMATED 378 10^3/uL (150-450); RED BLOOD COUNT 4.46 10^6/uL (4.00-5.40)
[2019-03-20 14:03] LABS: FOLATE 8.4 NG/ML; PERCENT SATURATION 5.6 % (13.2-45.0)
== END ==
LOC: M LABDRWAD 13:01
PROVIDERS: ATTEND Internal Medicine Gastroenterology
DX: K62.5 Hemorrhage of anus and rectum (principal); D50.9 Iron deficiency anemia, unspecified; R19.7 Diarrhea, unspecified

== ENCOUNTER → 2019-04-21 | Outpatient (REF) | payer MEDICARE, MEDICAID ==
[2019-04-21 20:55] LABS: FREE T4 1.01 NG/DL (0.76-1.46); THYROID STIMULATING HORMONE 3.46 uIU/ML (0.358-3.740)
== END ==
LOC: M SFHCADAM 11:56
PROVIDERS: ATTEND Physician Assistant
DX: N92.6 Irregular menstruation, unspecified (principal); E03.9 Hypothyroidism, unspecified
CPT/HCPCS: 84439; 84443; G0463

== ENCOUNTER 2019-05-28 22:51 | Emergency (ER) | payer MEDICARE, MEDICAID ==
[~2019-05-28] VITALS: Ht 162.6 cm; Wt 96.4 kg
[2019-05-29 00:07] VITALS: BP 126/91
--- NOTE | 2019-05-29 07:24 | REP ---
Clinical: Trauma. Technique: AP and lateral views of the left ankle. Findings: Soft-tissue swelling. No acute fracture or dislocation. Joint spaces and ankle mortise are intact. Impression: Swelling. No acute fracture or dislocation. Electronically Signed by Raji Hays MD 05/29/2019 07:15 A
== END 2019-05-29 00:52 | disposition home or self-care (01) ==
LOC: M ED 22:51
DX: S93.402A Sprain of unspecified ligament of left ankle, initial encounter (principal); X50.9XXA Other and unspecified overexertion or strenuous movements or postures, initial encounter; Y92.018 Other place in single-family (private) house as the place of occurrence of the external cause; Z79.899 Other long term (current) drug therapy; Z88.1 Allergy status to other antibiotic agents

== ENCOUNTER 2019-05-29 21:36 | Emergency (ER) | payer MEDICARE, MEDICAID ==
[~2019-05-29] VITALS: Ht 162.6 cm; Wt 95.5 kg
[2019-05-30 00:03] VITALS: BP 160/75
== END 2019-05-30 00:04 | disposition home or self-care (01) ==
LOC: M ED 21:36
DX: S93.402A Sprain of unspecified ligament of left ankle, initial encounter (principal); Y92.9 Unspecified place or not applicable; Y93.9 Activity, unspecified; Z79.899 Other long term (current) drug therapy; Z88.1 Allergy status to other antibiotic agents

== ENCOUNTER → 2019-08-23 | Outpatient (REF) | payer MEDICARE, MEDICAID ==
[~2019-08-23] MED LIST changes: +PROAAER10 INH; +TESS100C PO
== END ==
LOC: M LAB REF 19:18
PROVIDERS: ATTEND Physician Assistant Medical
DX: N39.0 Urinary tract infection, site not specified (principal)

== ENCOUNTER 2019-08-24 23:20 | Emergency (ER) | payer MEDICARE, MEDICAID ==
[~2019-08-24] VITALS: Ht 162.6 cm; Wt 113.6 kg
[~2019-08-24 23:20] MED LIST changes: -PROAAER10 INH; -TESS100C PO
[2019-08-24] MEDS ORDERED: MACR100C43 PO (23:25)
[2019-08-25] MEDS ORDERED: BENZONATATE 100 MG CAP PO ONE (01:00)
[2019-08-25] MEDS ORDERED: ALBUTEROL SULFATE 2.5 MG/0.5 ML INH NEB SOLN NEB ONE ×2 (01:00→02:15)
[2019-08-25 01:17] LABS: BASO % 0.2 % (0.0-1.0); EOS # 0.1 10^3/uL (0.0-0.5); EOS % 0.5 % (0.0-3.0); HEMATOCRIT 32.7 % (36.0-47.0); HEMOGLOBIN 9.8 g/dl (12.0-15.5); LYMPH # 0.7 10^3/uL (1.5-5.0); LYMPH % 5.1 % (24.0-44.0); MEAN CORPUSCULAR HEMOGLOBIN 22.4 pg (27.0-33.0); MEAN CORPUSCULAR VOLUME 74.7 fl (80.0-96.0); MONO # 0.4 10^3/uL (0.0-0.8); NEUTROPHILS # 12.2 10^3/uL (1.5-8.5); NEUTROPHILS % 90.9 % (36.0-66.0); PLATELET COUNT, AUTOMATED 410 10^3/uL (150-450); RED BLOOD COUNT 4.38 10^6/uL (4.00-5.40); WHITE BLOOD COUNT 13.4 10^3/uL (4.0-10.0)
[2019-08-25 01:45] LABS: ALBUMIN 3.5 GM/DL (3.2-5.2); ALT/SGPT 18 U/L (12-78); BILIRUBIN,DIRECT 0.2 MG/DL (0.0-0.2); BILIRUBIN,TOTAL 0.6 MG/DL (0.2-1.0); LIPASE 371 U/L (73-393); TOTAL PROTEIN 7.4 GM/DL (6.4-8.2)
[2019-08-25] MEDS ORDERED: IBUPROFEN 600 MG TAB PO ONE (02:15)
--- NOTE | 2019-08-25 02:20 | REP ---
Clinical: Cough with chest pain and shortness of breath . Comparison: None . Technique: PA and lateral. Findings: The mediastinum and cardiac silhouette are normal. The lung moe are clear and without acute consolidation, effusion, or pneumothorax. The skeletal structures are intact and normal. Impression: 1. No acute cardiopulmonary process. Electronically Signed by Raji Hays MD 08/25/2019 02:12 A
[2019-08-25 02:52] LABS: BLOOD UREA NITROGEN 10 MG/DL (7-18); CALCIUM LEVEL 9.2 MG/DL (8.5-10.1); CARBON DIOXIDE LEVEL 26 MEQ/L (21-32); CHLORIDE LEVEL 103 MEQ/L (98-107); CREATININE FOR GFR 0.91 MG/DL (0.55-1.30); GLOMERULAR FILTRATION RATE > 60.0 (>60); GLUCOSE, FASTING 112 MG/DL (70-100); POTASSIUM SERUM 4.1 MEQ/L (3.5-5.1); SODIUM LEVEL 138 MEQ/L (136-145)
[2019-08-25] MEDS ORDERED: TESS100C PO (03:37)
[2019-08-25] MEDS ORDERED: PROAAER10 INH (03:37)
[2019-08-25 03:46] VITALS: BP 128/72
== END 2019-08-25 03:47 | disposition home or self-care (01) ==
LOC: M ED 23:20
DX: J06.9 Acute upper respiratory infection, unspecified (principal); B34.9 Viral infection, unspecified; E03.9 Hypothyroidism, unspecified; K21.9 Gastro-esophageal reflux disease without esophagitis; Z79.899 Other long term (current) drug therapy; Z88.1 Allergy status to other antibiotic agents

== ENCOUNTER 2019-09-30 19:23 | Emergency (ER) | payer MEDICARE, MEDICAID ==
[~2019-09-30] VITALS: Ht 162.6 cm; Wt 122.8 kg
[~2019-09-30 19:23] MED LIST changes: -OMEP40CA2 PO; +OMEP40CA97 PO; +PROAAER10 INH; +TESS100C PO
[2019-09-30 19:24] VITALS: BP 140/89
[2019-09-30] MEDS ORDERED: PRED10TA2 (19:31)
== END 2019-09-30 20:38 | disposition left against medical advice (07) ==
LOC: M ED 19:23
DX: Z53.29 Procedure and treatment not carried out because of patient's decision for other reasons (principal)

== ENCOUNTER 2019-10-21 16:10 | Emergency (ER) | payer MEDICARE, MEDICAID ==
[~2019-10-21] VITALS: Ht 162.6 cm; Wt 125.9 kg
[~2019-10-21 16:10] MED LIST changes: +PRED10TA2
[2019-10-21 17:32] LABS: INFLUENZA A AMPLIFICATION NEGATIVE (NEGATIVE); INFLUENZA B AMPLIFICATION NEGATIVE (NEGATIVE)
[2019-10-21] MEDS ORDERED: BENZ200C70 PO (17:37)
[2019-10-21 17:40] VITALS: BP 137/78
--- NOTE | 2019-10-22 09:05 | REP ---
REASON: Cough and fever. COMPARISON: Multiple. FINDINGS: The superior mediastinal structures are midline. The cardiac silhouette is unremarkable in size, shape, and position. The diaphragmatic surfaces of the lungs are regular, and the costophrenic angles are clear. The pulmonary moe are clear. The imaged osseous structures are intact. IMPRESSION: There is no acute cardiopulmonary disease. Electronically Signed by Mian Gross DO 10/22/2019 09:25 A
== END 2019-10-21 17:45 | disposition home or self-care (01) ==
LOC: M ED 16:10
DX: J06.9 Acute upper respiratory infection, unspecified (principal); R05 Cough; K21.9 Gastro-esophageal reflux disease without esophagitis; E03.9 Hypothyroidism, unspecified; F90.9 Attention-deficit hyperactivity disorder, unspecified type; Z88.1 Allergy status to other antibiotic agents; Z79.899 Other long term (current) drug therapy

== ENCOUNTER → 2019-11-14 | Outpatient (REF) | payer MEDICARE, MEDICAID ==
[~2019-11-14] MED LIST changes: +BENZ200C70 PO
[2019-11-14 12:35] LABS: HEMATOCRIT 33.7 % (36.0-47.0); HEMOGLOBIN 9.8 g/dl (12.0-15.5); MEAN CORPUSCULAR HEMOGLOBIN 21.8 pg (27.0-33.0); MEAN CORPUSCULAR HGB CONC 29.1 g/dl (32.0-36.5); MEAN CORPUSCULAR VOLUME 74.9 fl (80.0-96.0); PLATELET COUNT, AUTOMATED 405 10^3/uL (150-450)
[2019-11-14 13:17] LABS: FREE T4 0.98 NG/DL (0.76-1.46); PERCENT SATURATION 4.5 % (13.2-45.0); THYROID STIMULATING HORMONE 6.19 uIU/ML (0.358-3.740)
== END ==
LOC: M SFHCADAM 11:16
PROVIDERS: ATTEND Physician Assistant
DX: D50.9 Iron deficiency anemia, unspecified (principal); E03.9 Hypothyroidism, unspecified
CPT/HCPCS: 82728; 83550; 84439; 84443; 85027; G0463

== ENCOUNTER → 2020-01-03 | Outpatient (CLI) | payer MEDICARE, MEDICAID ==
--- NOTE | 2020-01-03 18:25 | REP ---
Right great toe: Five views. Tree: Contusion. Findings: Five views of the right great toe are compared with right foot radiographs from June 19, 2016. There is no evidence of fracture or subluxation. Impression: No fracture seen. Electronically Signed by Luis Antonio Hernandez MD 01/03/2020 07:33 P
== END ==
LOC: M ADAMS 17:39
PROVIDERS: ATTEND Physician Assistant
DX: S90.111A Contusion of right great toe without damage to nail, initial encounter (principal); X58.XXXA Exposure to other specified factors, initial encounter; Y92.89 Other specified places as the place of occurrence of the external cause

== ENCOUNTER → 2020-01-04 | Outpatient (CLI) | payer MEDICARE, MEDICAID ==
[~2020-01-04] MED LIST changes: +PROM25TA22 PO; +SUCR1TA PO
--- NOTE | 2020-01-04 10:39 | REP ---
Ultrasound for right lower quadrant pain: Comparison is the pelvic ultrasound dated 10/02/2018. The study is performed with transabdominal and Doppler ultrasound. Endovaginal l imaging is not performed because of patient mental status. The bladder is adequately distended. The uterus is anteverted and normal size measuring 7.9 x 3.8 x 5.1 cm. The endometrium is not thickened measuring 5.1 mm. Right ovary: The right ovary is normal size measuring 3.5 x 1 and 5 x 2 feet 6 cm. There is no dominant mass or cyst. There is vascular flow with the Doppler resistive index in the parenchymal arteries measuring 0.64. Left ovary: The left ovary is normal size measuring 2.8 x 1.6 x 1.7 cm. There is no dominant mass or cyst. There is vascular flow with the Doppler resistive index of the parenchymal arteries measuring 0.55. There is a mild volume of fluid in the posterior cul-de-sac. Impression: Essentially negative pelvic ultrasound. There is vascular flow in both ovaries. There is no dominant ovarian mass or cyst. The uterus is unremarkable. There is a mild volume of free fluid in the posterior cul-de-sac. Electronically Signed by Chip Rosales MD 01/04/2020 10:31 A
== END ==
LOC: M RAD 09:27
PROVIDERS: ATTEND Physician Assistant
DX: R10.31 Right lower quadrant pain (principal)

== ENCOUNTER → 2020-01-04 | Outpatient (REF) | payer MEDICARE, MEDICAID ==
[~2020-01-04] MED LIST changes: -PROM25TA22 PO; -SUCR1TA PO
== END ==
LOC: M LAB REF 12:34
PROVIDERS: ATTEND Physician Assistant
DX: R10.31 Right lower quadrant pain (principal)

== ENCOUNTER 2020-01-16 06:46 | Emergency (ER) | payer MEDICARE, MEDICAID ==
[~2020-01-16] VITALS: Ht 162.6 cm; Wt 122.7 kg
[2020-01-16 07:32] LABS: BASO % 0.1 % (0.0-1.0); EOS % 0.2 % (0.0-3.0); HEMATOCRIT 32.5 % (36.0-47.0); HEMOGLOBIN 9.5 g/dl (12.0-15.5); LYMPH # 0.7 10^3/uL (1.5-5.0); LYMPH % 4.4 % (24.0-44.0); MEAN CORPUSCULAR HEMOGLOBIN 21.7 pg (27.0-33.0); MEAN CORPUSCULAR HGB CONC 29.2 g/dl (32.0-36.5); MEAN CORPUSCULAR VOLUME 74.4 fl (80.0-96.0); MONO # 0.4 10^3/uL (0.0-0.8); MONO % 2.7 % (0.0-5.0); NEUTROPHILS # 13.8 10^3/uL (1.5-8.5); NEUTROPHILS % 92.3 % (36.0-66.0); PLATELET COUNT, AUTOMATED 385 10^3/uL (150-450); RED BLOOD COUNT 4.37 10^6/uL (4.00-5.40); WHITE BLOOD COUNT 14.9 10^3/uL (4.0-10.0)
--- NOTE | 2020-01-16 07:48 | REP ---
She clinical: Cough and dyspnea . Comparison: 10/21/2019 . Technique: PA and lateral. Findings: The mediastinum and cardiac silhouette are normal. The lung moe are clear and without acute consolidation, effusion, or pneumothorax. The skeletal structures are intact and normal. Impression: 1. No acute cardiopulmonary process. Electronically Signed by Raji Hays MD 01/16/2020 07:39 A
[2020-01-16 07:57] LABS: BLOOD UREA NITROGEN 12 MG/DL (7-18); CALCIUM LEVEL 9.3 MG/DL (8.5-10.1); CARBON DIOXIDE LEVEL 27 MEQ/L (21-32); CHLORIDE LEVEL 105 MEQ/L (98-107); CREATININE FOR GFR 0.84 MG/DL (0.55-1.30); GLOMERULAR FILTRATION RATE > 60.0 (>60); GLUCOSE, FASTING 145 MG/DL (70-100); SODIUM LEVEL 137 MEQ/L (136-145)
[2020-01-16] MEDS ORDERED: ALBUTEROL SULFATE 2.5 MG/0.5 ML INH NEB SOLN INH ONE (08:00)
[2020-01-16] MEDS ORDERED: NS 1,000 ML IV ONE ×2 (08:00→10:15)
[2020-01-16] MEDS ORDERED: GI COCKTAIL 50ML BTL(HYOSCYAMINE/MAALOX/LIDOCAINE VISCOUS)(1:3:1) PO ONE (08:00)
[2020-01-16 08:19] LABS: HCG, SERUM QUALITATIVE NEGATIVE (NEGATIVE)
[2020-01-16 08:33] LABS: ALBUMIN 3.3 GM/DL (3.2-5.2); ALT/SGPT 56 U/L (12-78); BILIRUBIN,DIRECT 0.2 MG/DL (0.0-0.2); BILIRUBIN,TOTAL 0.5 MG/DL (0.2-1.0); LIPASE 202 U/L (73-393); TOTAL PROTEIN 7.3 GM/DL (6.4-8.2)
[2020-01-16] MEDS ORDERED: KETOROLAC 30 MG/ML VIAL (J1885) IV ONE (08:45)
[2020-01-16] MEDS ORDERED: ISOVUE-370 76% 100ML VIAL (Q9967) As Ordered ONE (08:50)
--- NOTE | 2020-01-16 09:20 | REP ---
Clinical: Chest pain and shortness of breath . Technique: Axial contrast enhanced images from the thoracic inlet to the upper abdomen using 100 ml Isovue 370 intravenous contrast material with multiplanar re-formations. Findings: Satisfactory enhancement of the pulmonary vasculature is achieved but evaluation is limited by motion artifact. No pulmonary embolus identified. Minimal scattered atelectasis to the lower lobes noted without consolidation or effusion. No pneumothorax. Mediastinum demonstrates normal thoracic aorta and heart/pericardium. No adenopathy. Musculoskeletal structures are intact. Impression: No evidence for pulmonary embolus. Very minimal lower lobe atelectasis. Electronically Signed by Raji Hays MD 01/16/2020 09:11 A
--- NOTE | 2020-01-16 09:21 | REP ---
Clinical: Epigastric and abdominal pain. Technique: Axial contrast enhanced images from the lung bases to the pubic symphysis using 100 ml Isovue 370 intravenous contrast material with coronal and sagittal re-formations. Findings: Examination is limited by motion artifact. Liver, spleen, pancreas, gallbladder, bilateral adrenal glands and kidneys are grossly normal. No obvious bowel obstruction or acute inflammatory process. Normal terminal ileum and appendix are identified in the right lower quadrant. Pelvis demonstrates normal bladder and age-appropriate uterus/adnexa. A minuscule amount of free fluid in the posterior cul-de-sac likely physiologic and related to menstrual cycle. Abdominal aorta without aneurysm. No free air. No adenopathy. Musculoskeletal structures are grossly intact. Impression: No acute abdominopelvic pathology appreciated Electronically Signed by Raji Hays MD 01/16/2020 09:13 A
[2020-01-16] MEDS ORDERED: PROMETHAZINE INJ 25 MG/ML VIAL (J2550) IV ONE (10:15)
[2020-01-16] MEDS ORDERED: OMEP40CA97 PO (13:06)
[2020-01-16] MEDS ORDERED: PROM25TA22 PO (13:06)
[2020-01-16] MEDS ORDERED: SUCR1TA PO (13:06)
[2020-01-16 13:16] VITALS: BP 105/59
--- NOTE | 2020-01-16 20:22 | ECGEPIP ---
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
== END 2020-01-16 13:33 | disposition home or self-care (01) ==
LOC: M ED 06:46
DX: R06.02 Shortness of breath (principal); R10.9 Unspecified abdominal pain; E03.9 Hypothyroidism, unspecified; D50.9 Iron deficiency anemia, unspecified; K76.0 Fatty (change of) liver, not elsewhere classified; Z87.19 Personal history of other diseases of the digestive system; Z79.899 Other long term (current) drug therapy; Z79.890 Hormone replacement therapy; Z88.1 Allergy status to other antibiotic agents
CPT/HCPCS: 71046; 71275; 74177; 80048; 80076; 83690; 84703; 85025; 93005; 93041; 94640; 94760; 96361; 96374; 96375; 99285; J1885; Q9967

== ENCOUNTER → 2020-05-13 | Outpatient (REF) | payer MEDICARE, MEDICAID ==
[~2020-05-13] MED LIST changes: +PANT40TA29 PO; -PANT40TA3 PO; +PROM25TA22 PO; +SUCR1TA PO
[2020-05-13 13:30] LABS: BASO # 0.1 10^3/uL (0.0-0.2); BASO % 0.8 % (0.0-1.0); EOS # 0.2 10^3/uL (0.0-0.5); EOS % 3.8 % (0.0-3.0); HEMATOCRIT 31.4 % (36.0-47.0); HEMOGLOBIN 8.8 g/dl (12.0-15.5); LYMPH # 2.2 10^3/uL (1.5-5.0); LYMPH % 36.9 % (24.0-44.0); MEAN CORPUSCULAR HEMOGLOBIN 20.3 pg (27.0-33.0); MEAN CORPUSCULAR VOLUME 72.4 fl (80.0-96.0); MONO # 0.5 10^3/uL (0.0-0.8); NEUTROPHILS % 50.2 % (36.0-66.0); PLATELET COUNT, AUTOMATED 432 10^3/uL (150-450); RED BLOOD COUNT 4.34 10^6/uL (4.00-5.40)
[2020-05-13 13:55] LABS: FOLATE 12.6 NG/ML; PERCENT SATURATION 5.1 % (13.2-45.0)
== END ==
LOC: M LABDRWAD 12:11
PROVIDERS: ATTEND Internal Medicine Gastroenterology
DX: D50.9 Iron deficiency anemia, unspecified (principal)

== ENCOUNTER → 2020-05-14 | Outpatient (CLI) | payer MEDICARE, MEDICAID ==
[~2020-05-14] MED LIST changes: -PANT40TA29 PO; +PANT40TA3 PO
== END ==
LOC: M LABSMTC 10:11
PROVIDERS: ATTEND Anesthesiology
DX: Z03.818 Encounter for observation for suspected exposure to other biological agents ruled out (principal); Z11.59 Encounter for screening for other viral diseases
CPT/HCPCS: C9803; U0003

== ENCOUNTER 2020-05-17 13:37 | Day surgery (SDC) | payer MEDICARE, MEDICAID ==
[~2020-05-17] VITALS: Ht 162.6 cm; Wt 126.5 kg
[~2020-05-17 13:37] MED LIST changes: +NS 1,000 ML IV ONE
[2020-05-17] MEDS ORDERED: propofoL 200 MG/20 ML VIAL As Ordered ONE (15:00)
[2020-05-17] MEDS ORDERED: LIDOCAINE 2% 100MG/5ML SDV (FOR ANES.) As Ordered ONE (15:00)
[2020-05-17 16:05] VITALS: BP 130/77
--- NOTE | 2020-05-17 16:13 | ROOR ---
Patient Name: Gema Aviles Procedure Date: 05/17/2020 3:10 PM Date of : 1995 Age: 24 Room: [facility] Gender: Female Note Status: Finalized Procedure: Upper GI endoscopy Indications: Epigastric abdominal pain, Iron deficiency anemia Providers: Arjun Nascimento MD Referring MD: SONDRA Alcocer Requesting Provider: Medicines: Monitored Anesthesia Care Complications: No immediate complications. Procedure: Pre-Anesthesia Assessment: - Prior to the procedure, a History and Physical was performed, and patient medications and allergies were reviewed. The patient is competent. The risks and benefits of the procedure and the sedation options and risks were discussed with the patient. All questions were answered and informed consent was obtained. Patient identification and proposed procedure were verified by the physician, the nurse and the anesthesiologist in the procedure room. Mental Status Examination: alert and oriented. Airway Examination: normal oropharyngeal airway and neck mobility. Respiratory Examination: clear to auscultation. CV Examination: normal. Prophylactic Antibiotics: The patient does not require prophylactic antibiotics. Prior Anticoagulants: The patient has taken no previous anticoagulant or antiplatelet agents. ASA Grade Assessment: II - A patient with mild systemic disease. After reviewing the risks and benefits, the patient was deemed in satisfactory condition to undergo the procedure. The anesthesia plan was to use monitored anesthesia care (MAC). Immediately prior to administration of medications, the patient was re-assessed for adequacy to receive sedatives. The heart rate, respiratory rate, oxygen saturations, blood pressure, adequacy of pulmonary ventilation, and response to care were monitored throughout the procedure. The physical status of the patient was re-assessed after the procedure. The Endoscope was introduced through the mouth, and advanced to the second part of duodenum. The upper GI endoscopy was accomplished without difficulty. The patient tolerated the procedure well. Findings: The examined esophagus was normal. The Z-line was regular and was found 38 cm from the incisors. Scattered mild inflammation characterized by erythema and granularity was found in the gastric antrum. Biopsies were taken with a cold forceps for Helicobacter pylori testing. Verification of patient identification for the specimen was done by the physician and nurse using the patient's name, date and medical record number. Estimated blood loss was minimal. The duodenal bulb and second portion of the duodenum were normal. Biopsies for histology were taken with a cold forceps for evaluation of celiac disease. Impression: - Normal esophagus. - Z-line regular, 38 cm from the incisors. - Gastritis. Biopsied. - Normal duodenal bulb and second portion of the duodenum. Biopsied. Recommendation: - Patient has a contact number available for emergencies. The signs and symptoms of potential delayed complications were discussed with the patient. Return to normal activities tomorrow. Written discharge instructions were provided to the patient. - Resume previous diet. - Continue present medications. - Await pathology results. - Telephone GI clinic for pathology results in 2 weeks. - Return to primary care physician. Arjun Nascimento MD Arjun Nascimento MD 05/17/2020 4:12:53 PM Electronically signed by Arjun Nascimento MD Number of Addenda: 0 Note Initiated On: 05/17/2020 3:10 PM Estimated Blood Loss: Estimated blood loss was minimal.
== END 2020-05-17 16:30 | disposition home or self-care (01) ==
LOC: M OPP 13:37
PROVIDERS: ATTEND Internal Medicine Gastroenterology
DX: K29.70 Gastritis, unspecified, without bleeding (principal); R10.13 Epigastric pain; D50.9 Iron deficiency anemia, unspecified; E03.9 Hypothyroidism, unspecified; Z79.899 Other long term (current) drug therapy; Z88.8 Allergy status to other drugs, medicaments and biological substances; Z80.0 Family history of malignant neoplasm of digestive organs

== ENCOUNTER → 2021-03-25 | Outpatient (REF) | payer MEDICARE, MEDICAID ==
[~2021-03-25] MED LIST changes: -NS 1,000 ML IV ONE; +PANT40TA29 PO; -PANT40TA3 PO
[2021-03-25 12:44] LABS: BASO # 0.1 10^3/uL (0.0-0.2); BASO % 1.1 % (0.0-1.0); EOS # 0.3 10^3/uL (0.0-0.5); EOS % 4.2 % (0.0-3.0); HEMATOCRIT 28.6 % (36.0-47.0); HEMOGLOBIN 7.7 g/dl (12.0-15.5); LYMPH % 30.8 % (24.0-44.0); MEAN CORPUSCULAR HEMOGLOBIN 17.9 pg (27.0-33.0); MEAN CORPUSCULAR HGB CONC 26.9 g/dl (32.0-36.5); MEAN CORPUSCULAR VOLUME 66.7 fl (80.0-96.0); MONO # 0.5 10^3/uL (0.0-0.8); MONO % 7.9 % (2.0-8.0); NEUTROPHILS # 3.5 10^3/uL (1.5-8.5); NEUTROPHILS % 55.5 % (36.0-66.0); PLATELET COUNT, AUTOMATED 435 10^3/uL (150-450); RED BLOOD COUNT 4.29 10^6/uL (4.00-5.40); WHITE BLOOD COUNT 6.4 10^3/uL (4.0-10.0)
[2021-03-25 13:24] LABS: ALBUMIN 3.3 GM/DL (3.2-5.2); ALT/SGPT 23 U/L (12-78); BILIRUBIN,TOTAL 0.8 MG/DL (0.2-1.0); BLOOD UREA NITROGEN 11 MG/DL (7-18); CALCIUM LEVEL 9.1 MG/DL (8.5-10.1); CARBON DIOXIDE LEVEL 29 MEQ/L (21-32); CHLORIDE LEVEL 103 MEQ/L (98-107); CREATININE FOR GFR 0.74 MG/DL (0.55-1.30); FERRITIN 4 NG/ML (8-252); FREE T4 1.18 NG/DL (0.76-1.46); GLOMERULAR FILTRATION RATE > 60.0 (>60); GLUCOSE, FASTING 82 MG/DL (70-100); IRON (FE) 14 UG/DL (50-170); PERCENT SATURATION 2.5 % (13.2-45.0); POTASSIUM SERUM 4.2 MEQ/L (3.5-5.1); SODIUM LEVEL 138 MEQ/L (136-145); TOTAL IRON BINDING CAPACITY 553 UG/DL (250-450); TOTAL PROTEIN 7.5 GM/DL (6.4-8.2)
[2021-03-25 13:25] LABS: VITAMIN B12 LEVEL 365 PG/ML
[2021-03-25 13:26] LABS: FOLATE 17.7 NG/ML
== END ==
LOC: M SFHCADAM 08:59
PROVIDERS: ATTEND Physician Assistant
DX: E03.9 Hypothyroidism, unspecified (principal); E61.1 Iron deficiency; K29.50 Unspecified chronic gastritis without bleeding

== ENCOUNTER 2021-04-01 13:38 | Outpatient (CLI) | payer MEDICARE, MEDICAID ==
[~2021-04-01] VITALS: Ht 152.4 cm; Wt 60.3 kg
[~2021-04-01 13:38] MED LIST changes: +IRON SUCROSE 25 MG in NS 23.75 ML IV ONE; +IRON SUCROSE 25 MG in NS 50 ML IV ONE; +IRON SUCROSE 75 MG in NS 100 ML IV ONE; +IRON SUCROSE IV ONE; +NS IV ONE
[2021-04-01 13:57] VITALS: BP 176/87
[2021-04-01 14:14] VITALS: BP 154/88
[2021-04-01 15:59] VITALS: BP 135/81
== END 2021-04-01 16:00 | disposition home or self-care (01) ==
LOC: M INFU 13:38
PROVIDERS: ATTEND Physician Assistant
DX: D50.0 Iron deficiency anemia secondary to blood loss (chronic) (principal); Z88.1 Allergy status to other antibiotic agents
CPT/HCPCS: 96365; J1756

== ENCOUNTER 2021-04-08 13:15 | Outpatient (CLI) | payer MEDICARE, MEDICAID ==
[~2021-04-08] VITALS: Ht 152.4 cm; Wt 60.0 kg
[2021-04-08 13:15] VITALS: BP 169/80
[~2021-04-08 13:15] MED LIST changes: -IRON SUCROSE 25 MG in NS 23.75 ML IV ONE; -IRON SUCROSE 25 MG in NS 50 ML IV ONE; -IRON SUCROSE 75 MG in NS 100 ML IV ONE; -IRON SUCROSE IV ONE; -NS IV ONE
[2021-04-08] MEDS ORDERED: IRON SUCROSE 200 MG in NS 200 ML IV ONE (13:30)
[2021-04-08 14:45] VITALS: BP 136/86
== END 2021-04-08 15:00 | disposition home or self-care (01) ==
LOC: M INFU 13:15
PROVIDERS: ATTEND Physician Assistant
DX: D50.0 Iron deficiency anemia secondary to blood loss (chronic) (principal); Z88.1 Allergy status to other antibiotic agents
CPT/HCPCS: 96374; J1756

== ENCOUNTER → 2021-04-10 | Outpatient (CLI) | payer MEDICARE, MEDICAID ==
--- NOTE | 2021-04-10 15:44 | REP ---
INDICATION: N93.9 AUB. COMPARISON: 01/24/2020 the latest prior TECHNIQUE: Transvesical technique. The patient refused transvaginal imaging. FINDINGS: The uterus measures 8 x 3.7 x 5.2 cm. The parenchymal echo pattern is within normal limits and essentially unchanged from the prior exam. The endometrial echo complex is smooth and unremarkable appearing measuring 7 mm in its greatest thickness. The right ovary measures 3 x 1.5 x 1.8 cm and is within normal limits with an RI 0.49. Left ovary measures 2.7 x 1.4 x 1.9 cm and is within normal limits with an RI 0.46. There is no free fluid in cul-de-sac. IMPRESSION: Transvesical pelvic ultrasonography is within normal limits. <Electronically signed by Mian Gross > 04/10/21 [id number]
== END ==
LOC: M WHC 13:13
PROVIDERS: ATTEND Nurse Practitioner Women's Health
DX: N93.9 Abnormal uterine and vaginal bleeding, unspecified (principal)

== ENCOUNTER → 2021-04-11 | Outpatient (REF) | payer MEDICARE, MEDICAID ==
[2021-04-11 13:56] LABS: BASO # 0.1 10^3/uL (0.0-0.2); BASO % 1.2 % (0.0-1.0); EOS # 0.3 10^3/uL (0.0-0.5); EOS % 4.3 % (0.0-3.0); HEMATOCRIT 30.7 % (36.0-47.0); HEMOGLOBIN 7.9 g/dl (12.0-15.5); LYMPH % 34.2 % (24.0-44.0); MEAN CORPUSCULAR HEMOGLOBIN 18.2 pg (27.0-33.0); MEAN CORPUSCULAR HGB CONC 25.7 g/dl (32.0-36.5); MEAN CORPUSCULAR VOLUME 70.9 fl (80.0-96.0); MONO # 0.5 10^3/uL (0.0-0.8); MONO % 8.2 % (2.0-8.0); NEUTROPHILS % 51.6 % (36.0-66.0); PLATELET COUNT, AUTOMATED 435 10^3/uL (150-450); RED BLOOD COUNT 4.33 10^6/uL (4.00-5.40); WHITE BLOOD COUNT 5.9 10^3/uL (4.0-10.0)
[2021-04-11 14:09] LABS: PERCENT SATURATION 4.9 % (13.2-45.0)
== END ==
LOC: M SFHCADAM 08:43
PROVIDERS: ATTEND Physician Assistant
DX: D50.0 Iron deficiency anemia secondary to blood loss (chronic) (principal); N92.1 Excessive and frequent menstruation with irregular cycle

== ENCOUNTER 2021-04-15 13:08 | Outpatient (CLI) | payer MEDICARE, MEDICAID ==
[~2021-04-15] VITALS: Ht 167.6 cm; Wt 113.6 kg
[~2021-04-15 13:08] MED LIST changes: +IRON SUCROSE 200 MG in NS 200 ML IV ONE
[2021-04-15 13:31] VITALS: BP 127/68
[2021-04-15 15:00] VITALS: BP 149/70
== END 2021-04-15 15:00 | disposition home or self-care (01) ==
LOC: M INFU 13:08
PROVIDERS: ATTEND Physician Assistant
DX: D50.0 Iron deficiency anemia secondary to blood loss (chronic) (principal); Z88.1 Allergy status to other antibiotic agents
CPT/HCPCS: 96365; J1756

== ENCOUNTER 2021-04-21 12:00 | Outpatient (CLI) | payer MEDICARE, MEDICAID ==
[~2021-04-21] VITALS: Ht 152.4 cm; Wt 113.6 kg
[~2021-04-21 12:00] MED LIST changes: +ALBUTEROL SULFATE (2.5MG/0.5ML) NEB INH PRN; +EPINEPHrine (1MG/ML) IV IM PRN; +IRON SUCROSE 200 MG in NS 100 ML OVER 1 HR IV ONE; +IRON SUCROSE 200 MG in NS 190 ML IV ONE; -IRON SUCROSE 200 MG in NS 200 ML IV ONE; +NS 1,000 ML IV ONE; +diphenhydrAMINE (50MG/ML) IV IV PRN; +diphenhydrAMINE 25 MG IV IV ONE; +methylPREDNISolone (125 MG/2 ML) IV IV PRN; +methylPREDNISolone 125MG 2ML VIAL IV ONE
[2021-04-21 12:28] VITALS: BP 137/73
[2021-04-21 13:58] VITALS: BP 169/87
== END 2021-04-21 14:00 | disposition home or self-care (01) ==
LOC: M INFU 12:00
PROVIDERS: ATTEND Physician Assistant
DX: D50.9 Iron deficiency anemia, unspecified (principal); Z88.1 Allergy status to other antibiotic agents
CPT/HCPCS: 96365; 96375; J1756; J2930

== ENCOUNTER 2021-04-30 13:10 | Outpatient (CLI) | payer MEDICARE, MEDICAID ==
[~2021-04-30] VITALS: Ht 152.4 cm; Wt 113.6 kg
[~2021-04-30 13:10] MED LIST changes: +ALBUTEROL SULFATE (2.5MG/0.5ML) NEB INH PRN; +EPINEPHrine (1MG/ML) IV IM PRN; +IRON SUCROSE 200 MG in NS 190 ML IV ONE; +NS 1,000 ML IV ONE; +diphenhydrAMINE (50MG/ML) IV IV PRN; +diphenhydrAMINE 25 MG IV IV ONE; +methylPREDNISolone (125 MG/2 ML) IV IV PRN; +methylPREDNISolone 125MG 2ML VIAL IV ONE
[2021-04-30 13:15] VITALS: BP 145/85
[2021-04-30] MEDS ORDERED: methylPREDNISolone 40MG 1ML VIAL IV ONE (13:55)
[2021-04-30] MEDS ORDERED: methylPREDNISolone 125MG 2ML VIAL IV ONE (13:55)
[2021-04-30] MEDS ORDERED: diphenhydrAMINE 25 MG IV IV ONE (13:55)
[2021-04-30 14:00] VITALS: BP 145/85
[2021-04-30 15:15] VITALS: BP 135/75
[2021-04-30 16:15] VITALS: BP 135/75
== END 2021-04-30 16:15 | disposition home or self-care (01) ==
LOC: M INFU 13:10
PROVIDERS: ATTEND Physician Assistant
DX: D50.9 Iron deficiency anemia, unspecified (principal)

== ENCOUNTER → 2021-04-30 | Outpatient (CLI) | payer MEDICARE, MEDICAID ==
[~2021-04-30] MED LIST changes: -ALBUTEROL SULFATE (2.5MG/0.5ML) NEB INH PRN; -EPINEPHrine (1MG/ML) IV IM PRN; -IRON SUCROSE 200 MG in NS 100 ML OVER 1 HR IV ONE; -IRON SUCROSE 200 MG in NS 190 ML IV ONE; -NS 1,000 ML IV ONE; -diphenhydrAMINE (50MG/ML) IV IV PRN; -diphenhydrAMINE 25 MG IV IV ONE; -methylPREDNISolone (125 MG/2 ML) IV IV PRN; -methylPREDNISolone 125MG 2ML VIAL IV ONE
[2021-04-30 17:55] LABS: BASO # 0.1 10^3/uL (0.0-0.2); BASO % 0.7 % (0.0-1.0); EOS # 0.1 10^3/uL (0.0-0.5); EOS % 1.2 % (0.0-3.0); HEMOGLOBIN 9.6 g/dl (12.0-15.5); LYMPH % 13.2 % (24.0-44.0); MEAN CORPUSCULAR HEMOGLOBIN 20.8 pg (27.0-33.0); MEAN CORPUSCULAR HGB CONC 27.4 g/dl (32.0-36.5); MEAN CORPUSCULAR VOLUME 75.8 fl (80.0-96.0); MONO # 0.3 10^3/uL (0.0-0.8); MONO % 3.3 % (2.0-8.0); NEUTROPHILS # 6.2 10^3/uL (1.5-8.5); NEUTROPHILS % 81.1 % (36.0-66.0); PLATELET COUNT, AUTOMATED 376 10^3/uL (150-450); RED BLOOD COUNT 4.62 10^6/uL (4.00-5.40); WHITE BLOOD COUNT 7.6 10^3/uL (4.0-10.0)
[2021-04-30 18:07] LABS: BLOOD UREA NITROGEN 8 MG/DL (7-18); CREATININE FOR GFR 0.84 MG/DL (0.55-1.30); FERRITIN 74 NG/ML (8-252); GLOMERULAR FILTRATION RATE > 60.0 (>60); IRON (FE) 357 UG/DL (50-170); PERCENT SATURATION 62.3 % (13.2-45.0); TOTAL IRON BINDING CAPACITY 573 UG/DL (250-450)
== END ==
LOC: M LAB 16:24
PROVIDERS: ATTEND Internal Medicine Gastroenterology
DX: D50.9 Iron deficiency anemia, unspecified (principal); B96.81 Helicobacter pylori [H. pylori] as the cause of diseases classified elsewhere
CPT/HCPCS: 36415; 82565; 82728; 83550; 84520; 85025; 96365; 96366; 96375; J1200; J1756; J2920

== ENCOUNTER → 2021-05-05 | Outpatient (REF) | payer MEDICARE, MEDICAID ==
[~2021-05-05] MED LIST changes: -ALBUTEROL SULFATE (2.5MG/0.5ML) NEB INH PRN; -EPINEPHrine (1MG/ML) IV IM PRN; -IRON SUCROSE 200 MG in NS 190 ML IV ONE; +MEDR10TA; -NS 1,000 ML IV ONE; +OMEP40CA4 PO; -OMEP40CA97 PO; -diphenhydrAMINE (50MG/ML) IV IV PRN; -diphenhydrAMINE 25 MG IV IV ONE; -methylPREDNISolone (125 MG/2 ML) IV IV PRN; -methylPREDNISolone 125MG 2ML VIAL IV ONE
== END ==
LOC: M SFHCWAGY 13:26
PROVIDERS: ATTEND Nurse Practitioner Women's Health
DX: N93.9 Abnormal uterine and vaginal bleeding, unspecified (principal)

== ENCOUNTER 2021-05-07 09:49 | Outpatient (CLI) | payer MEDICARE, MEDICAID ==
[~2021-05-07] VITALS: Ht 152.4 cm; Wt 113.6 kg
[~2021-05-07 09:49] MED LIST changes: +ALBUTEROL SULFATE 2.5 MG/0.5 ML INH NEB SOLN INH PRN; +EPINEPHrine INJ 1 MG/ML 1ML AMP IM PRN; -MEDR10TA; -OMEP40CA4 PO; +OMEP40CA97 PO; +diphenhydrAMINE 50MG/ML VIAL (J1200) IV PRN; +methylPREDNISolone 125MG 2ML VIAL IV PRN
[2021-05-07 10:00] VITALS: BP 119/51
[2021-05-07] MEDS ORDERED: IRON SUCROSE 200 MG in NS 200 ML IV ONE (10:00)
[2021-05-07] MEDS ORDERED: methylPREDNISolone 40MG 1ML VIAL IV ONE (10:00)
[2021-05-07] MEDS ORDERED: diphenhydrAMINE 50MG/ML VIAL (J1200) IV ONE (10:00)
[2021-05-07 11:45] VITALS: BP 152/69
== END 2021-05-07 11:45 | disposition home or self-care (01) ==
LOC: M INFU 09:49
PROVIDERS: ATTEND Physician Assistant
DX: D50.9 Iron deficiency anemia, unspecified (principal); Z79.899 Other long term (current) drug therapy
CPT/HCPCS: 96365; 96375; J1200; J1756; J2920

== ENCOUNTER → 2021-05-10 | Outpatient (REF) | payer MEDICARE, MEDICAID ==
[~2021-05-10] MED LIST changes: -ALBUTEROL SULFATE 2.5 MG/0.5 ML INH NEB SOLN INH PRN; -EPINEPHrine INJ 1 MG/ML 1ML AMP IM PRN; +MEDR10TA; -diphenhydrAMINE 50MG/ML VIAL (J1200) IV PRN; -methylPREDNISolone 125MG 2ML VIAL IV PRN
== END ==
LOC: M LAB REF 11:34
PROVIDERS: ATTEND Internal Medicine Gastroenterology
DX: D50.9 Iron deficiency anemia, unspecified (principal); B96.81 Helicobacter pylori [H. pylori] as the cause of diseases classified elsewhere

== ENCOUNTER 2021-05-13 11:46 | Emergency (ER) | payer MEDICARE, MEDICAID ==
[~2021-05-13] VITALS: Ht 162.6 cm; Wt 122.7 kg
[~2021-05-13 11:46] MED LIST changes: -MEDR10TA
[2021-05-13] MEDS ORDERED: MEDR10TA (12:03)
[2021-05-13 12:51] LABS: HEMATOCRIT 38.4 % (36.0-47.0); HEMOGLOBIN 11.2 g/dl (12.0-15.5); MEAN CORPUSCULAR HGB CONC 29.2 g/dl (32.0-36.5); PLATELET COUNT, AUTOMATED 359 10^3/uL (150-450); RED BLOOD COUNT 4.86 10^6/uL (4.00-5.40); WHITE BLOOD COUNT 6.9 10^3/uL (4.0-10.0)
[2021-05-13] MEDS ORDERED: NS 1,000 ML IV ONE (13:15)
[2021-05-13] MEDS ORDERED: MECLIZINE 25 MG TABLET PO ONE (13:25)
[2021-05-13 14:29] LABS: CK-MB VALUE MASS < 1.0 NG/ML (<3.6); CPK CREATINE PHOSPHOKINASE 66 U/L (26-192); MB/CK RELATIVE INDEX 1.52 (< OR =4); TROPONIN I < 0.02 NG/ML (< 0.10)
[2021-05-13] MEDS ORDERED: ISOVUE-370 76% 100ML VIAL As Ordered ONE (14:40)
--- NOTE | 2021-05-13 15:10 | REPVR ---
PROCEDURE INFORMATION: Exam: CT Head Without Contrast Exam date and time: 05/13/2021 2:51 PM Age: 25 years old Clinical indication: Other: Vertigo ataxia TECHNIQUE: Imaging protocol: Computed tomography of the head without contrast. Radiation optimization: All CT scans at this facility use at least one of these dose optimization techniques: automated exposure control; mA and/or kV adjustment per patient size (includes targeted exams where dose is matched to clinical indication); or iterative reconstruction. COMPARISON: No relevant prior studies available. FINDINGS: Brain: No hemorrhage. Unremarkable white matter for the patient's age. No mass effect. No evolving territorial infarct. Cerebral ventricles: No ventriculomegaly. Paranasal sinuses: Visualized sinuses are unremarkable. No fluid levels. Mastoid air cells: Visualized mastoid air cells are well aerated. Bones/joints: Unremarkable. No acute fracture. Soft tissues: Unremarkable. IMPRESSION: No acute intracranial abnormality seen. Electronically signed by: Belkis River On 05/13/2021 15:10:47 PM
--- NOTE | 2021-05-13 15:16 | REP ---
INDICATION: chest pain. COMPARISON: 01/16/2020. TECHNIQUE: CT angiogram chest performed following the intravenous administration of 100 cc of Isovue 370. Sagittal and coronal reconstruction images are performed. FINDINGS: Lungs: Clear, no infiltrate or nodule. Mediastinum: No adenopathy. Pulmonary arteries: No evidence of pulmonary embolism. Vivienne: No adenopathy. Axilla: No adenopathy. Pleura: No effusion. Heart: Not enlarged. Thoracic aorta: No aneurysm or dissection. Upper abdominal structures: Unremarkable. Visualized osseous structures: Unremarkable. IMPRESSION: No CT evidence of pulmonary embolism. No evidence of aortic dissection. No infiltrate seen. <Electronically signed by Chip Morrow > 05/13/21 0623
[2021-05-13] MEDS ORDERED: ACETAMINOPHEN TAB 650MG DOSE (2X325MG) PO ONE (16:10)
[2021-05-13 16:17] VITALS: BP 141/76
--- NOTE | 2021-05-13 18:56 | REP ---
INDICATION: dizziness COMPARISON: 01/16/2020. TECHNIQUE: PA/Lateral FINDINGS: Lungs: Clear, no infiltrate. Heart: Normal in size. Mediastinum: Mediastinal silhouette unremarkable. Pleural angles: Unremarkable.. Bones and soft tissues: Unremarkable. IMPRESSION: No acute pulmonary disease. <Electronically signed by Chip Morrow > 05/13/21 0740
--- NOTE | 2021-05-13 21:07 | ECGEPIP ---
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
== END 2021-05-13 16:41 | disposition home or self-care (01) ==
LOC: M ED 11:46
DX: R42 Dizziness and giddiness (principal); E07.9 Disorder of thyroid, unspecified; D50.9 Iron deficiency anemia, unspecified; E66.8 Other obesity; E55.9 Vitamin D deficiency, unspecified; K76.0 Fatty (change of) liver, not elsewhere classified; F79 Unspecified intellectual disabilities; Z87.19 Personal history of other diseases of the digestive system; Z79.899 Other long term (current) drug therapy; Z79.890 Hormone replacement therapy; Z88.1 Allergy status to other antibiotic agents
CPT/HCPCS: 36415; 70450; 71046; 71275; 80047; 82550; 82553; 84484; 84702; 85027; 85379; 86850; 86900; 86901; 93005; 96360; 96361; 99284; Q9967

== ENCOUNTER → 2021-08-06 | Outpatient (REF) | payer MEDICARE, MEDICAID ==
[~2021-08-06] MED LIST changes: +MEDR10TA; +OMEP40CA4 PO; -OMEP40CA97 PO
== END ==
LOC: M SFHCADAM 08:16
PROVIDERS: ATTEND Physician Assistant
DX: D50.0 Iron deficiency anemia secondary to blood loss (chronic) (principal); K21.9 Gastro-esophageal reflux disease without esophagitis

== ENCOUNTER → 2022-02-17 | Outpatient (REF) | payer MEDICARE, MEDICAID ==
[~2022-02-17] MED LIST changes: -DICY20TA11 PO; +DICY20TA20 PO
[2022-02-17 12:45] LABS: BASO # 0.1 10^3/uL (0.0-0.2); BASO % 0.9 % (0.0-1.0); EOS # 0.2 10^3/uL (0.0-0.5); EOS % 4.3 % (0.0-3.0); HEMATOCRIT 43.4 % (36.0-47.0); HEMOGLOBIN 14.5 g/dl (12.0-15.5); LYMPH % 37.8 % (24.0-44.0); MEAN CORPUSCULAR HEMOGLOBIN 30.5 pg (27.0-33.0); MEAN CORPUSCULAR HGB CONC 33.4 g/dl (32.0-36.5); MEAN CORPUSCULAR VOLUME 91.4 fl (80.0-96.0); MONO # 0.6 10^3/uL (0.0-0.8); MONO % 11.5 % (2.0-8.0); NEUTROPHILS # 2.4 10^3/uL (1.5-8.5); NEUTROPHILS % 45.3 % (36.0-66.0); PLATELET COUNT, AUTOMATED 270 10^3/uL (150-450); RED BLOOD COUNT 4.75 10^6/uL (4.00-5.40); WHITE BLOOD COUNT 5.4 10^3/uL (4.0-10.0)
[2022-02-17 13:19] LABS: ALBUMIN 3.7 GM/DL (3.2-5.2); ALT/SGPT 41 U/L (12-78); BILIRUBIN,TOTAL 0.7 MG/DL (0.2-1.0); BLOOD UREA NITROGEN 17 MG/DL (7-18); CALCIUM LEVEL 9.2 MG/DL (8.5-10.1); CARBON DIOXIDE LEVEL 30 MEQ/L (21-32); CHLORIDE LEVEL 106 MEQ/L (98-107); CREATININE FOR GFR 0.81 MG/DL (0.55-1.30); FERRITIN 17 NG/ML (8-252); GLOMERULAR FILTRATION RATE > 60.0 (>60); GLUCOSE, FASTING 96 MG/DL (70-100); IRON (FE) 85 UG/DL (50-170); PERCENT SATURATION 19.5 % (13.2-45.0); POTASSIUM SERUM 4.3 MEQ/L (3.5-5.1); SODIUM LEVEL 140 MEQ/L (136-145); TOTAL IRON BINDING CAPACITY 437 UG/DL (250-450); TOTAL PROTEIN 7.2 GM/DL (6.4-8.2)
== END ==
LOC: M SFHCADAM 12:21
PROVIDERS: ATTEND Physician Assistant
DX: D50.0 Iron deficiency anemia secondary to blood loss (chronic) (principal); K21.9 Gastro-esophageal reflux disease without esophagitis

== ENCOUNTER → 2022-05-06 | Outpatient (REF) | payer MEDICARE, MEDICAID | LOC: M SFHCPLAZ 16:59 | PROVIDERS: ATTEND Physician Assistant | DX: R05.9 Cough, unspecified (principal) ==

== ENCOUNTER → 2022-05-11 | Outpatient (REF) | payer MEDICARE, MEDICAID ==
[2022-05-11 13:39] LABS: BASO # 0.1 10^3/uL (0.0-0.2); BASO % 1.2 % (0.0-1.0); EOS # 0.2 10^3/uL (0.0-0.5); EOS % 5.6 % (0.0-3.0); HEMATOCRIT 43.8 % (36.0-47.0); HEMOGLOBIN 14.4 g/dl (12.0-15.5); LYMPH # 1.6 10^3/uL (1.5-5.0); LYMPH % 37.6 % (24.0-44.0); MEAN CORPUSCULAR HEMOGLOBIN 30.9 pg (27.0-33.0); MEAN CORPUSCULAR HGB CONC 32.9 g/dl (32.0-36.5); MONO # 0.4 10^3/uL (0.0-0.8); MONO % 10.3 % (2.0-8.0); NEUTROPHILS # 1.9 10^3/uL (1.5-8.5); NEUTROPHILS % 45.1 % (36.0-66.0); PLATELET COUNT, AUTOMATED 224 10^3/uL (150-450); RED BLOOD COUNT 4.66 10^6/uL (4.00-5.40); WHITE BLOOD COUNT 4.3 10^3/uL (4.0-10.0)
[2022-05-11 14:38] LABS: ALBUMIN 3.4 GM/DL (3.2-5.2); ALT/SGPT 43 U/L (12-78); BLOOD UREA NITROGEN 11 MG/DL (7-18); CALCIUM LEVEL 9.7 MG/DL (8.5-10.1); CARBON DIOXIDE LEVEL 25 MEQ/L (21-32); CHLORIDE LEVEL 105 MEQ/L (98-107); CREATININE FOR GFR 0.79 MG/DL (0.55-1.30); FERRITIN 25 NG/ML (8-252); FREE T4 0.93 NG/DL (0.76-1.46); GLOMERULAR FILTRATION RATE > 60.0 (>60); GLUCOSE, FASTING 97 MG/DL (70-100); IRON (FE) 99 UG/DL (50-170); POTASSIUM SERUM 4.1 MEQ/L (3.5-5.1); SODIUM LEVEL 139 MEQ/L (136-145); TOTAL IRON BINDING CAPACITY 430 UG/DL (250-450); TOTAL PROTEIN 7.1 GM/DL (6.4-8.2)
== END ==
LOC: M SFHCADAM 08:22
PROVIDERS: ATTEND Physician Assistant
DX: D50.0 Iron deficiency anemia secondary to blood loss (chronic) (principal); E66.01 Morbid (severe) obesity due to excess calories; E03.9 Hypothyroidism, unspecified; Z13.220 Encounter for screening for lipoid disorders

== ENCOUNTER → 2023-06-25 | Outpatient (REF) | payer MEDICARE, MEDICAID ==
[~2023-06-25] MED LIST changes: -MEDR10TA; +MEDR10TA9
== END ==
LOC: M SFHCWAGY 17:45
PROVIDERS: ATTEND Nurse Practitioner Women's Health
DX: Z12.4 Encounter for screening for malignant neoplasm of cervix (principal)
CPT/HCPCS: 87624; G0123

== ENCOUNTER 2023-09-10 18:16 | Emergency (ER) | payer MEDICARE, MEDICAID ==
[~2023-09-10] VITALS: Ht 162.6 cm; Wt 141.3 kg
[2023-09-10 18:18] VITALS: TEMP 98.1
[2023-09-10] MEDS ORDERED: BOOSTRIX VACCINE (TETANUS/DIPHTH/ACEL. PERTUSSIS) 0.5ML SYR IM.IMMUN ONE (20:15)
[2023-09-10] MEDS ORDERED: ACETAMINOPHEN TAB 650MG DOSE (2X325MG) PO ONE (20:15)
[2023-09-10 20:44] VITALS: BP 138/87; O2SAT 98
== END 2023-09-10 20:45 | disposition home or self-care (01) ==
LOC: M ED 18:16
DX: S00.01XA Abrasion of scalp, initial encounter (principal); W20.8XXA Other cause of strike by thrown, projected or falling object, initial encounter; Y99.0 Civilian activity done for income or pay; F90.9 Attention-deficit hyperactivity disorder, unspecified type; Z79.899 Other long term (current) drug therapy; Z88.1 Allergy status to other antibiotic agents

== ENCOUNTER → 2023-11-24 | Outpatient (REF) | payer MEDICARE, MEDICAID ==
[2023-11-24 22:16] LABS: AMORPHOUS SEDIMENT SMALL (NEGATIVE); APPEARANCE, URINE HAZY (CLEAR); BACTERIA, URINE AUTO 1+ (NEGATIVE); BILIRUBIN, URINE AUTO NEGATIVE (NEGATIVE); BLOOD, URINE BLOOD NEGATIVE (NEGATIVE); COLOR, URINE YELLOW (YELLOW); GLUCOSE, URINE (UA) AUTO NEGATIVE (NEGATIVE); KETONE, URINE AUTO NEGATIVE (NEGATIVE); LEUKOCYTE ESTERASE, URINE AUTO 2+ (NEGATIVE); NITRITE, URINE AUTO NEGATIVE (NEGATIVE); PROTEIN, URINE AUTO NEGATIVE (NEGATIVE); RBC, URINE AUTO 0 /HPF (0-3); SPECIFIC GRAVITY URINE AUTO 1.006 (1.002-1.035); SQUAMOUS EPITHELIAL CELL UR AU 4 /HPF (0-6); WBC, URINE AUTO 2 /HPF (0-3)
== END ==
LOC: M LAB REF 22:00
PROVIDERS: ATTEND Physician Assistant
DX: N39.0 Urinary tract infection, site not specified (principal)

== ENCOUNTER → 2024-02-01 | Outpatient (REF) | payer MEDICARE, MEDICAID ==
[2024-02-01 20:43] LABS: BASO # 0.1 10^3/uL (0.0-0.2); BASO % 0.8 % (0.0-1.0); EOS # 0.3 10^3/uL (0.0-0.5); EOS % 4.4 % (0.0-3.0); HEMATOCRIT 44.6 % (36.0-47.0); HEMOGLOBIN 15.1 g/dl (12.0-15.5); LYMPH # 2.8 10^3/uL (1.5-5.0); LYMPH % 42.4 % (24.0-44.0); MEAN CORPUSCULAR HEMOGLOBIN 32.3 pg (27.0-33.0); MEAN CORPUSCULAR HGB CONC 33.9 g/dl (32.0-36.5); MEAN CORPUSCULAR VOLUME 95.5 fl (80.0-96.0); MONO # 0.6 10^3/uL (0.0-0.8); MONO % 8.5 % (2.0-8.0); NEUTROPHILS # 2.9 10^3/uL (1.5-8.5); NEUTROPHILS % 43.7 % (36.0-66.0); PLATELET COUNT, AUTOMATED 297 10^3/uL (150-450); RED BLOOD COUNT 4.67 10^6/uL (4.00-5.40); WHITE BLOOD COUNT 6.6 10^3/uL (4.0-10.0)
[2024-02-01 21:13] LABS: FREE T4 1.17 NG/DL (0.89-1.76); THYROID STIMULATING HORMONE 2.372 uIU/ML (0.55-4.78)
[2024-02-01 21:14] LABS: ALBUMIN 3.7 G/DL (3.2-5.2); ALKALINE PHOSPHATASE 83 U/L (46-116); ALT/SGPT 37 U/L (7.0-40); AST/SGOT 21 U/L (<34); BILIRUBIN,TOTAL 0.8 MG/DL (0.3-1.2); BLOOD UREA NITROGEN 10 MG/DL (9-23); CALCIUM LEVEL 8.7 MG/DL (8.5-10.1); CARBON DIOXIDE LEVEL 29 MMOL/L (20-31); CHLORIDE LEVEL 105 MMOL/L (98-107); CHOLESTEROL LEVEL 152 MG/DL (<200); CHOLESTEROL RISK RATIO 3.15 (<5); CREATININE FOR GFR 0.79 MG/DL (0.55-1.30); FERRITIN 142.9 NG/ML (7.3-270.7); GLOMERULAR FILTRATION RATE > 60.0 (>60); GLUCOSE, FASTING 70 MG/DL (60-100); HDL CHOLESTEROL 48.2 MG/DL (>40); IRON (FE) 91 UG/DL (50-170); LDL CHOLESTEROL 78.4 MG/DL (<100); NON-HDL-C 103.8 MG/DL; POTASSIUM SERUM 4.2 MMOL/L (3.5-5.1); SODIUM LEVEL 138 MMOL/L (136-145); TOTAL PROTEIN 7.2 G/DL (5.7-8.2); TRIGLYCERIDES LEVEL 127 MG/DL (<150)
[2024-02-01 21:15] LABS: FOLATE 12.3 NG/ML (>5.4); VITAMIN B12 LEVEL 362 PG/ML (211-911)
[2024-02-01 21:52] LABS: HEMOGLOBIN A1c 5.2 % (4.0-6.0)
== END ==
LOC: M SFHCADAM 14:32
PROVIDERS: ATTEND Physician Assistant
DX: R53.82 Chronic fatigue, unspecified (principal); Z91.89 Other specified personal risk factors, not elsewhere classified; E66.01 Morbid (severe) obesity due to excess calories; Z68.43 Body mass index [BMI] 50.0-59.9, adult; K21.9 Gastro-esophageal reflux disease without esophagitis; E03.9 Hypothyroidism, unspecified; Z13.1 Encounter for screening for diabetes mellitus; Z13.220 Encounter for screening for lipoid disorders; Z79.899 Other long term (current) drug therapy; Z86.39 Personal history of other endocrine, nutritional and metabolic disease; Z88.1 Allergy status to other antibiotic agents

== ENCOUNTER → 2024-02-10 | Outpatient (REF) | payer OTHER, MEDICAID ==
[2024-02-10 16:42] LABS: APPEARANCE, URINE CLOUDY (CLEAR); BACTERIA, URINE AUTO 1+ (NEGATIVE); BILIRUBIN, URINE AUTO NEGATIVE (NEGATIVE); BLOOD, URINE BLOOD 2+ (NEGATIVE); COLOR, URINE YELLOW (YELLOW); GLUCOSE, URINE (UA) AUTO NEGATIVE (NEGATIVE); KETONE, URINE AUTO NEGATIVE (NEGATIVE); LEUKOCYTE ESTERASE, URINE AUTO 2+ (NEGATIVE); MUCUS, URINE SMALL (NEGATIVE); NITRITE, URINE AUTO NEGATIVE (NEGATIVE); PROTEIN, URINE AUTO 1+ mg/dL (NEGATIVE); RBC, URINE AUTO 2 /HPF (0-3); SQUAMOUS EPITHELIAL CELL UR AU 20 /HPF (0-6); WBC, URINE AUTO 24 /HPF (0-3)
== END ==
LOC: M LAB REF 16:09
PROVIDERS: ATTEND Physician Assistant
DX: N39.0 Urinary tract infection, site not specified (principal)

== ENCOUNTER → 2024-05-05 | Outpatient (CLI) | payer MEDICARE, MEDICAID | LOC: M SLEEP 20:00 | PROVIDERS: ATTEND Nurse Practitioner Adult Health | DX: R06.83 Snoring (principal) ==

== ENCOUNTER → 2024-08-17 | Outpatient (REF) | payer MEDICARE, MEDICAID ==
[2024-08-19 13:33] LABS: HPV APTIMA Not Detected (Not Detected)
== END ==
LOC: M SFHCWAGY 13:19
PROVIDERS: ATTEND Nurse Practitioner Family
DX: Z12.4 Encounter for screening for malignant neoplasm of cervix (principal)
CPT/HCPCS: 87624; G0123

== ENCOUNTER → 2024-10-30 | Outpatient (CLI) | payer MEDICAID, MEDICARE | LOC: M RAD 16:19 | PROVIDERS: ATTEND Physician Assistant Medical | DX: R07.82 Intercostal pain (principal) ==

== ENCOUNTER → 2024-10-31 | Outpatient (REF) | payer MEDICARE, MEDICAID, OTHER | LOC: M SFHCWAGY 14:43 | PROVIDERS: ATTEND Nurse Practitioner Family | DX: R30.0 Dysuria (principal) ==

== ENCOUNTER → 2024-11-15 | Outpatient (CLI) | payer MEDICARE, MEDICAID ==
[2024-11-15 13:42] LABS: BASO # 0.1 10^3/uL (0.0-0.2); BASO % 0.8 % (0.0-1.0); EOS # 0.2 10^3/uL (0.0-0.5); EOS % 3.2 % (0.0-3.0); HEMATOCRIT 40.2 % (36.0-47.0); HEMOGLOBIN 13.4 g/dl (12.0-15.5); LYMPH # 2.7 10^3/uL (1.5-5.0); LYMPH % 43.5 % (24.0-44.0); MEAN CORPUSCULAR HGB CONC 33.3 g/dl (32.0-36.5); MEAN CORPUSCULAR VOLUME 93.1 fl (80.0-96.0); MONO # 0.5 10^3/uL (0.0-0.8); MONO % 7.6 % (2.0-8.0); NEUTROPHILS # 2.8 10^3/uL (1.5-8.5); NEUTROPHILS % 44.7 % (36.0-66.0); PLATELET COUNT, AUTOMATED 321 10^3/uL (150-450); RED BLOOD COUNT 4.32 10^6/uL (4.00-5.40); WHITE BLOOD COUNT 6.2 10^3/uL (4.0-10.0)
[2024-11-15 14:13] LABS: PERCENT SATURATION 17.2 % (13.2-45.0)
[2024-11-15 14:14] LABS: FERRITIN 18.5 NG/ML (7.3-270.7); PROLACTIN 9.9 NG/ML
[2024-11-20 23:18] LABS: TESTOSTERONE FREE (DIRECT) 3.5 pg/mL (0.1-6.4)
== END ==
LOC: M PLALAB 10:34
PROVIDERS: ATTEND Nurse Practitioner Family
DX: N92.0 Excessive and frequent menstruation with regular cycle (principal); Z79.899 Other long term (current) drug therapy

== ENCOUNTER 2024-11-23 11:45 | Emergency (ER) | payer MEDICARE, MEDICAID ==
[~2024-11-23] VITALS: Ht 162.6 cm; Wt 149.7 kg
[2024-11-23] MEDS ORDERED: BACTDSTA (12:05)
[2024-11-23 14:23] LABS: BASO # 0.1 10^3/uL (0.0-0.2); BASO % 0.8 % (0.0-1.0); EOS # 0.2 10^3/uL (0.0-0.5); EOS % 3.5 % (0.0-3.0); HEMATOCRIT 35.3 % (36.0-47.0); LYMPH # 2.6 10^3/uL (1.5-5.0); MEAN CORPUSCULAR HEMOGLOBIN 31.5 pg (27.0-33.0); MEAN CORPUSCULAR VOLUME 92.7 fl (80.0-96.0); MONO # 0.5 10^3/uL (0.0-0.8); MONO % 8.1 % (2.0-8.0); NEUTROPHILS # 2.9 10^3/uL (1.5-8.5); NEUTROPHILS % 46.4 % (36.0-66.0); PLATELET COUNT, AUTOMATED 326 10^3/uL (150-450); RED BLOOD COUNT 3.81 10^6/uL (4.00-5.40); WHITE BLOOD COUNT 6.3 10^3/uL (4.0-10.0)
[2024-11-23 14:32] LABS: BLOOD UREA NITROGEN 9 MG/DL (9-23); CALCIUM LEVEL 9.1 MG/DL (8.5-10.1); CARBON DIOXIDE LEVEL 28 MMOL/L (20-31); CHLORIDE LEVEL 104 MMOL/L (98-107); GLOMERULAR FILTRATION RATE > 60.0 (>60); GLUCOSE, FASTING 95 MG/DL (60-100); POTASSIUM SERUM 4.7 MMOL/L (3.5-5.1); SODIUM LEVEL 138 MMOL/L (136-145)
[2024-11-23 15:59] LABS: HCG, SERUM QUALITATIVE NEGATIVE (NEGATIVE)
[2024-11-23 18:00] VITALS: BP 141/95; TEMP 97.3; O2SAT 97
[2024-11-23] MEDS: ACETAMINOPHEN 500 MG TAB PO ONE (18:09)
== END 2024-11-23 18:17 | disposition home or self-care (01) ==
LOC: M ED 11:45
DX: N93.9 Abnormal uterine and vaginal bleeding, unspecified (principal); K21.9 Gastro-esophageal reflux disease without esophagitis; Z88.8 Allergy status to other drugs, medicaments and biological substances; Z79.899 Other long term (current) drug therapy

== ENCOUNTER → 2025-03-05 | Outpatient (CLI) | payer MEDICARE, MEDICAID ==
[~2025-03-05] MED LIST changes: +BACTDSTA
== END ==
LOC: M RAD 15:09
PROVIDERS: ATTEND Nurse Practitioner Family
DX: N92.0 Excessive and frequent menstruation with regular cycle (principal)

== ENCOUNTER → 2025-06-19 | Outpatient (REF) | payer MEDICARE, MEDICAID ==
[2025-06-19 14:32] LABS: BASO # 0.1 10^3/uL (0.0-0.2); BASO % 0.9 % (0.0-1.0); EOS # 0.3 10^3/uL (0.0-0.5); EOS % 4.0 % (0.0-3.0); LYMPH # 1.8 10^3/uL (1.5-5.0); LYMPH % 27.5 % (24.0-44.0); MONO # 0.6 10^3/uL (0.0-0.8); MONO % 8.9 % (2.0-8.0); NEUTROPHILS # 3.8 10^3/uL (1.5-8.5); NEUTROPHILS % 58.4 % (36.0-66.0); PLATELET COUNT, AUTOMATED 432 10^3/uL (150-450)
[2025-06-19 14:40] LABS: ALT/SGPT 21 U/L (7.0-40); AST/SGOT 21 U/L (<34); CALCIUM LEVEL 9.2 MG/DL (8.5-10.1); CARBON DIOXIDE LEVEL 28 MMOL/L (20-31); CHLORIDE LEVEL 101 MMOL/L (98-107); CREATININE FOR GFR 0.83 MG/DL (0.55-1.30); GLOMERULAR FILTRATION RATE > 90.0 (>60); IRON (FE) 16 UG/DL (50-170); PERCENT SATURATION 3.5 % (13.2-45.0); POTASSIUM SERUM 4.5 MMOL/L (3.5-5.1); SODIUM LEVEL 140 MMOL/L (136-145)
[2025-06-19 14:41] LABS: FREE T4 1.18 NG/DL (0.89-1.76); VITAMIN B12 LEVEL 389 PG/ML (211-911)
[2025-06-19 14:42] LABS: TOTAL 25(OH) VITAMIN D 22.8 NG/ML (20.0-100.0)
== END ==
LOC: M SFHCADAM 09:41
PROVIDERS: ATTEND Physician Assistant
DX: N93.8 Other specified abnormal uterine and vaginal bleeding (principal); D50.0 Iron deficiency anemia secondary to blood loss (chronic); E66.01 Morbid (severe) obesity due to excess calories; Z68.43 Body mass index [BMI] 50.0-59.9, adult; K29.50 Unspecified chronic gastritis without bleeding; Z79.899 Other long term (current) drug therapy
CPT/HCPCS: 80053; 82306; 82607; 82728; 82746; 83550; 84439; 84443; 85025; G0463

== ENCOUNTER → 2025-07-03 | Outpatient (REF) | payer MEDICARE, MEDICAID ==
[2025-07-03 17:13] LABS: APPEARANCE, URINE HAZY (CLEAR); BACTERIA, URINE AUTO NEGATIVE (NEGATIVE); BILIRUBIN, URINE AUTO NEGATIVE (NEGATIVE); BLOOD, URINE BLOOD 3+ (NEGATIVE); GLUCOSE, URINE (UA) AUTO NEGATIVE (NEGATIVE); KETONE, URINE AUTO NEGATIVE (NEGATIVE); LEUKOCYTE ESTERASE, URINE AUTO NEGATIVE (NEGATIVE); MUCUS, URINE SMALL (NEGATIVE); NITRITE, URINE AUTO NEGATIVE (NEGATIVE); PROTEIN, URINE AUTO NEGATIVE (NEGATIVE); RBC, URINE AUTO TNTC /HPF (0-3); SPECIFIC GRAVITY URINE AUTO 1.010 (1.002-1.035); SQUAMOUS EPITHELIAL CELL UR AU 1 /HPF (0-6); UROBILINOGEN, URINE AUTO 0.2 mg/dL (0.0-2.0); WBC, URINE AUTO 1 /HPF (0-3)
== END ==
LOC: M SFHCADAM 11:54
PROVIDERS: ATTEND Physician Assistant
DX: R32 Unspecified urinary incontinence (principal)

== ENCOUNTER 2025-07-18 12:14 | Outpatient (CLI) | payer MEDICARE, MEDICAID ==
[~2025-07-18] VITALS: Ht 152.4 cm; Wt 139.0 kg
[~2025-07-18 12:14] MED LIST changes: +ALBUTEROL SULFATE 2.5 MG/0.5 ML INH CONCENTRATE NEB SOLN INH PRN; +EPINEPHrine INJ 1 MG/ML 1ML AMP IM PRN; +diphenhydrAMINE 50 MG/ML VIAL IV PRN
[2025-07-18] MEDS: ACETAMINOPHEN 325 MG TAB PO ONE (13:26)
[2025-07-18] MEDS: IRON SUCROSE 300 MG in NS 250 ML IV ONE (13:37)
[2025-07-18 15:20] VITALS: BP 150/78; O2SAT 100
== END 2025-07-18 15:20 | disposition home or self-care (01) ==
LOC: M INFU 12:14
PROVIDERS: ATTEND Physician Assistant
DX: D50.9 Iron deficiency anemia, unspecified (principal); Z88.1 Allergy status to other antibiotic agents
CPT/HCPCS: 96365; 96366; J1756

== ENCOUNTER 2025-08-02 12:04 | Outpatient (CLI) | payer MEDICARE, MEDICAID ==
[~2025-08-02] VITALS: Ht 162.6 cm; Wt 97.7 kg
[2025-08-02] MEDS: ACETAMINOPHEN 650 MG PO ONE (12:31)
[2025-08-02] MEDS: IRON SUCROSE 300 MG in NS 250 ML OVER 90 MIN. IV ONE (12:39)
[2025-08-02 14:15] VITALS: BP 140/74; O2SAT 100
== END 2025-08-02 14:15 | disposition home or self-care (01) ==
LOC: M INFU 12:04
PROVIDERS: ATTEND Physician Assistant
DX: D50.9 Iron deficiency anemia, unspecified (principal); Z88.1 Allergy status to other antibiotic agents
CPT/HCPCS: 96365; 96366; J1756

== ENCOUNTER 2025-08-16 11:49 | Outpatient (CLI) | payer MEDICARE, MEDICAID ==
[~2025-08-16] VITALS: Ht 162.6 cm; Wt 136.0 kg
[2025-08-16 12:45] VITALS: BP 125/71; O2SAT 99
[2025-08-16] MEDS: IRON SUCROSE 300 MG in NS 250 ML IV ONE (13:22)
[2025-08-16 14:55] VITALS: BP 132/68; O2SAT 99
== END 2025-08-16 15:00 | disposition home or self-care (01) ==
LOC: M INFU 11:49
PROVIDERS: ATTEND Physician Assistant
DX: D50.9 Iron deficiency anemia, unspecified (principal); Z88.1 Allergy status to other antibiotic agents
CPT/HCPCS: 96365; 96366; J1756